=== PATIENT | female | born 1955 | race Caucasian/White ===

== ENCOUNTER 2016-03-31 14:21 | Inpatient (IN) | payer OTHER ==
[~2016-03-31] VITALS: Ht 162.6 cm; Wt 37.1 kg
[2016-03-31 14:46] VITALS: BP 132/110; PULSE 78; RESP 18; TEMP 99; O2SAT 97
[2016-03-31 14:59] VITALS: BP 132/110; PULSE 78; RESP 20; O2SAT 97
[2016-03-31 15:29] LABS: BACTERIA, URINE OCC /hpf; BLOOD, URINE LARGE (NEG); COMMENT (UR) CULTURE INDICATED; CULTURE IF INDICATED CULTURE INDICATED; GLUCOSE,URINE NEG (NEG); HYALINE CAST, URINE 5 /lpf (RARE); KETONE, URINE NEG (NEG); MUCUS URINE FEW /lpf (OCC); NITRITE,URINE NEG (NEG); PH, URINE 5.5 (5.0-8.5); SQUAMOUS EPITHELIAL CELL URINE 2 /hpf (0-5); URINE COLOR YELLOW (YELLW/STRAW)
[2016-03-31] MEDS ORDERED: LORazepam 1 MG TAB PO ONE (15:30)
--- NOTE | 2016-03-31 15:38 | PD ---
HPI Chief Complaint: Psychiatric Symptoms Time Seen by Provider: 14:50 Travel History International Travel<30 days: No Contact w/Intl Traveler<30days: No Traveled to known affect area: No History of Present Illness HPI Patient is a 60-year-old female with long-standing psychiatric history who presents the emergency department as a Wagner act. Apparently she has been increasingly psychotic and "unable to manage at home" per her . When EMS arrived patient was walking nude around her house. Stated "this is not my tongue", "but this is my arm". Patient is tangential, and not able to participate with history or physical. She denies any physical complaints. She refuses to ambulate for EMS, laying naked on the ground in the household. They had to physically transport her out of the house. She was stable throughout transport. Vital signs unremarkable. PFSH Past Medical History Arthritis: Yes Asthma: No Atrial Fibrillation: Yes Autoimmune Disease: No Anxiety: Yes Depression: Yes Heart Rhythm Problems: No High Cholesterol: Yes Chemotherapy: No Chest Pain: No Congestive Heart Failure: No COPD: No Cerebrovascular Accident: No Diminished Hearing: No Endocrine: Yes GERD: Yes Glaucoma: No Genitourinary: Yes Hepatitis: No Hiatal Hernia: No Hypertension: Yes Immune Disorder: No Implanted Vascular Access Dvce: Yes Kidney Stones: No Musculoskeletal: Yes Neurologic: No Reproductive: No Respiratory: No Migraines: No Myocardial Infarction: No Radiation Therapy: No Renal Failure: No Sickle Cell Disease: No Sleep Apnea: No Thyroid Disease: Yes Ulcer: No ?: Not Menopausal: Yes : 3 Para: 1 Ectopic : Yes Past Surgical History Abdominal Surgery: Yes (ECTOPIC , PEG TUBE INSERTION) AICD: No Appendectomy: No Arteriovenous Shunt: No Body Medical Devices: PINS AND SCREWS R HIP FROM SURGERY Cholecystectomy: No Gynecologic Surgery: Yes (ECTOPIC R SIDE) Insulin Pump: No Joint Replacement: No Pacemaker: No Tonsillectomy: Yes Other Surgery: Yes (R HIP WITH SCREWS AND PLATES IN 1992) Social History Alcohol Use: No Tobacco Use: No Substance Use: No Allergies-Medications (Allergen,Severity, Reaction): Coded Allergies: Penicillin (Verified Allergy, Severe, 06/25/15) *MDRO Multi-Drug Resistant Organism (Unverified Adverse Reaction, Unknown , 06/25/15) MRSA (abdominal wound) - 05/2014 and 06/2014. Reported Meds & Prescriptions Reported Meds & Active Scripts Active Active Prescriptions or Reported Medications Unobtainable Review of Systems ROS Limitations: Altered Mental Status, Psychotic, Poor Historian Physical Exam Exam Limitations: Altered Mental Status, Poor Historian, Psychotic Narrative GENERAL: Cachectic female, nude. SKIN: Warm and dry. HEAD: Atraumatic. Normocephalic. EYES: Pupils equal and round. No scleral icterus. No injection or drainage. ENT: No nasal bleeding or discharge. Mucous membranes pink and moist. NECK supple CARDIOVASCULAR: Regular rate and rhythm. No murmur appreciated. RESPIRATORY: No accessory muscle use. Clear to auscultation. Breath sounds equal bilaterally. GASTROINTESTINAL: Abdomen soft, non-tender, nondistended. MUSCULOSKELETAL: No obvious deformities. No edema. NEUROLOGICAL: Awake and alert [address] but not time. Grossly nonfocal neuro exam. Speech is normal. Moves all extremities strong. PSYCHIATRIC: Labile mood and affect. Tangential thought process. Unable to participate with history, physical. Data Data Last Documented VS Vital Signs Date Time Temp Pulse Resp B/P Pulse Ox O2 Delivery O2 Flow Rate FiO2 03/31/16 16:06 79 22 141/87 98 Room Air 03/31/16 14:46 99.0 Orders Complete Blood Count With Diff (03/31/16 14:51) Comprehensive Metabolic Panel (03/31/16 14:51) Drug Screen, Random Urine (03/31/16 14:51) Psych Screen (03/31/16 14:51) Urinalysis - C+S If Indicated (03/31/16 14:51) Cath For Specimen (03/31/16 14:51) Lorazepam (Ativan) (03/31/16 15:30) Urine Culture (03/31/16 15:00) Nitrofurantoin Monohyd Macrocr (Macrobid (03/31/16 15:45) Nitrofurantoin Monohyd Macrocr (Macrobid (03/31/16 18:00) Lorazepam Inj (Ativan Inj) (03/31/16 15:45) Ceftriaxone Inj (Rocephin Inj) (03/31/16 15:45) Restraints Non-Violent CHARLES.Q3H (03/31/16 15:59) Labs Laboratory Tests Test 03/31/16 03/31/16 15:00 16:30 Urine Color YELLOW Urine Turbidity CLOUDY Urine pH 5.5 Urine Specific [place] 1.027 Urine Protein 100 mg/dL Urine Glucose (UA) NEG mg/dL Urine Ketones NEG mg/dL Urine Occult Blood LARGE Urine Nitrite NEG Urine Bilirubin NEG Urine Urobilinogen LESS THAN 2.0 MG/DL Urine Leukocyte Esterase LARGE Urine RBC /hpf Urine WBC /hpf Urine WBC Clumps MANY Urine Squamous Epithelial 2 /hpf Cells Urine Bacteria OCC /hpf Urine Hyaline Casts 5 /lpf Urine Mucus FEW /lpf Urine Yeast (Budding) FEW Microscopic Urinalysis Comment CULTURE INDICATED Urine Opiates Screen NEG Urine Barbiturates Screen NEG Urine Amphetamines Screen NEG Urine Benzodiazepines Screen NEG Urine Cocaine Screen NEG Urine Cannabinoids Screen NEG White Blood Count 6.2 TH/MM3 Red Blood Count 3.63 MIL/MM3 Hemoglobin 10.8 GM/DL Hematocrit 31.6 % Mean Corpuscular Volume 87.0 FL Mean Corpuscular Hemoglobin 29.9 PG Mean Corpuscular Hemoglobin 34.3 % Concent Red Cell Distribution Width 14.2 % Platelet Count 273 TH/MM3 Mean Platelet Volume 8.8 FL Neutrophils (%) (Auto) 73.0 % Lymphocytes (%) (Auto) 15.4 % Monocytes (%) (Auto) 9.8 % Eosinophils (%) (Auto) 1.2 % Basophils (%) (Auto) 0.6 % Neutrophils # (Auto) 4.5 TH/MM3 Lymphocytes # (Auto) 1.0 TH/MM3 Monocytes # (Auto) 0.6 TH/MM3 Eosinophils # (Auto) 0.1 TH/MM3 Basophils # (Auto) 0.0 TH/MM3 CBC Comment DIFF FINAL Differential Comment Sodium Level 147 MEQ/L Potassium Level 3.3 MEQ/L Chloride Level 111 MEQ/L Carbon Dioxide Level 27.6 MEQ/L Anion Gap 8 MEQ/L Blood Urea Nitrogen 34 MG/DL Creatinine 0.72 MG/DL Estimat Glomerular Filtration 82 ML/MIN Rate Random Glucose 115 MG/DL Calcium Level 8.7 MG/DL Total Bilirubin 0.1 MG/DL Aspartate Amino Transf 16 U/L (AST/SGOT) Alanine Aminotransferase 21 U/L (ALT/SGPT) Alkaline Phosphatase 84 U/L Total Protein 6.9 GM/DL Albumin 3.0 GM/DL MDM Medical Decision Making Medical Screen Exam Complete: Yes Emergency Medical Condition: Yes Medical Record Reviewed: Yes Differential Diagnosis 60-year-old female here as a Wagner act for psychosis and abnormal behavior. Differential includes psychosis, schizophrenia, bipolar disorder, substance induced psychosis. Narrative Course Patient placed on monitor, IV established and blood obtained. She was ordered oral Ativan, his family states that this typically helps. Patient refused this stating that she cannot open her mouth, but clearly has no difficulty doing so on exam. Therefore IV Ativan was ordered instead. CBC, CMP, urinalysis and urine drug screen were notable for positive UTI. She was given dose of Rocephin , Macrobid order to follow. Patient medically cleared for psychiatric evaluation. Diagnosis Primary Impression: Urinary tract infection Qualified Code: N30.00 - Acute cystitis without hematuria Additional Impression: Psychosis Qualified Code: F29 - Psychosis, unspecified psychosis type Scripts Unable to Obtain Active Prescriptions or Reported Meds Teresa Kelly MD Mar 31, 2016 15:38
[2016-03-31 15:39] LABS: AMPHETAMINE, URINE NEG (NEG); BARBITURATES, URINE NEG (NEG); COCAINE, URINE NEG (NEG)
[2016-03-31] MEDS ORDERED: cefTRIAXone INJ 1,000 MG in SODIUM CHLORIDE 0.9% INJ 100 ML IV ONE (15:45)
[2016-03-31] MEDS ORDERED: LORazepam 2 MG/ML VIAL IV PUSH ONE (15:45)
[2016-03-31] MEDS ORDERED: NITROFURANTOIN MONOHYD MACROCR 100 MG CAP PO ONE (15:45)
[2016-03-31 16:06] VITALS: BP 141/87; PULSE 79; RESP 22; O2SAT 98
[2016-03-31 16:57] LABS: AUTOMATED NEUTROPHIL # 4.5 TH/MM3 (1.8-7.7); BASOPHIL % 0.6 % (0.0-2.0); EOSINOPHIL # 0.1 TH/MM3 (0-0.4); EOSINOPHIL % 1.2 % (0.0-4.0); HEMATOCRIT 31.6 % (35.0-46.0); HEMO FLAGS DIFF FINAL; LYMPH % 15.4 % (9.0-44.0); MEAN CORPUSCULAR HEMOGLOBIN 29.9 PG (27.0-34.0); MEAN CORPUSCULAR HGB CONC 34.3 % (32.0-36.0); MONO % 9.8 % (0.0-8.0); PLATELET COUNT 273 TH/MM3 (150-450); RED BLOOD COUNT 3.63 MIL/MM3 (4.00-5.30); RED CELL DISTRIBUTION WIDTH 14.2 % (11.6-17.2); WHITE BLOOD COUNT 6.2 TH/MM3 (4.0-11.0)
[2016-03-31 17:10] LABS: ALT (GPT) 21 U/L (10-53); ANION GAP 8 MEQ/L (5-15); AST (GOT) 16 U/L (15-37); BICARBONATE 27.6 MEQ/L (21.0-32.0); BLOOD UREA NITROGEN 34 MG/DL (7-18); CHLORIDE 111 MEQ/L (98-107); GLOMERULAR FILTRATION RATE 82 ML/MIN (>89); POTASSIUM 3.3 MEQ/L (3.5-5.1); SODIUM (NA) 147 MEQ/L (136-145)
[2016-03-31 17:13] LABS: ALKALINE PHOSPHATASE 84 U/L (45-117); TOTAL BILIRUBIN ADULT 0.1 MG/DL (0.2-1.0)
[2016-03-31] MEDS: NITROFURANTOIN MONOHYD MACROCR 100 MG CAP PO SCH (18:00)
[2016-03-31 19:12] VITALS: BP 132/66; PULSE 53; RESP 16; O2SAT 98
[2016-03-31 23:15] VITALS: BP 100/63; PULSE 82; RESP 16; TEMP 98.4; O2SAT 96
[2016-03-31] MEDS ORDERED: LORazepam 0.5 MG TAB age > 65 yrs PO PRN (23:15)
[2016-03-31] MEDS ORDERED: ALUMINUM/MAGNESIUM/SIMETH 30 ML CUP PO PRN (23:15)
[2016-03-31] MEDS ORDERED: MAGNESIUM HYDROXIDE SUSP 30 ML CUP PO PRN (23:15)
[2016-03-31] MEDS ORDERED: ACETAMINOPHEN 325 MG TAB PO PRN (23:15)
[2016-03-31 23:32] VITALS: BP 100/63; PULSE 82; RESP 12; TEMP 98.4; O2SAT 96
[2016-04-01 06:00] VITALS: BP 117/63; PULSE 78; RESP 18; TEMP 97.4; O2SAT 98
[2016-04-01] MEDS: LORazepam 2 MG/ML VIAL - age > 65 yrs IM PRN ×2 (06:19→21:54)
[2016-04-01] MEDS: NITROFURANTOIN MONOHYD MACROCR 100 MG CAP PO SCH (09:00)
[2016-04-01] MEDS: OLANZapine ODT 5 MG TAB PO SCH ×2 (11:00→21:00)
[2016-04-01] MEDS ORDERED: MAGNESIUM HYDROXIDE SUSP 30 ML CUP PO PRN (11:00)
[2016-04-01] MEDS ORDERED: ALUMINUM/MAGNESIUM/SIMETH 30 ML CUP PO PRN (11:00)
[2016-04-01] MEDS ORDERED: ACETAMINOPHEN 325 MG TAB PO PRN (11:00)
--- NOTE | 2016-04-01 11:23 | HHI.HP ---
Provisional Diagnosis Admission Date Mar 31, 2016 at 22:55 [place] I. Delusional disorder somatic type with bizarre content f 22 Certification of Person's Competence To Provide Express and Informed Consent I have personally examined Jelly Mansfield , a person being served at [facility] on, Apr 01, 2016 10:58. Express and informed consent means consent voluntarily given in writing, by a competent person, after sufficient explanation and disclosure of the subject matter involved to enable the person to make a knowing and willful decision without any element of force, fraud, deceit, duress, or other form of constraint or coercion. This person is 18 years of age or older, is not now known to be incompetent to consent to treatment with a guardian advocate, and does not have a health care surrogate or proxy currently making medical treatment decisions. I have found this person to be one of the following: [] Competent to provide express and informed consent, as defined above, for voluntary admission to this facility and is competent to provide express and informed consent for treatment. He/she has the consistent capacity to make well reasoned, willful, and knowing decisions concerning his or her medical or mental health treatment. The person fully and consistently understands the purpose of the admission for examination/placement and is fully capable of personally exercising all rights assured [place] [x] Incompetent to provide express and informed consent to voluntary admission, and this is incompetent to provide express and informed consent to treatment. The person must be transferred to involuntary status and a petition for a guardian advocate filed with the Circuit Court. [] Refusing to provide express and informed consent to voluntary admission but is competent to provide express and informed consent for treatment. The person must be discharged or transferred to involuntary status. Form shall be completed within 24 hours of a person's arrival at the receiving facility and filed in the clinical record of each person: 1. Admitted on a voluntary basis 2. Permitted to provide express and informed consent to his/her own treatment 3. Allowed to transfer from involuntary to voluntary status 4. Prior to permitting a person to consent to his or her own treatment after having been previously found incompetent to consent to treatment. History of Present Illness Capacity: Lacks Capacity HPI Patient is a 60-year-old white female well known to us from multiple prior contact comes here under Wagner act by the [facility] office dated 03/31/16 12:55 PM stating on 03/31/16 Deputy Valdez make contact with Jelly mansfield at her residence. Rebecca notified the [employer] office reference to shyla behavior becoming delusional and psychotic. Shyla has a history of diagnosed mental illness and erratic behavior. She further is unable and unwilling to take care of herself mentally and physically Regino made several attempts to assist her with cleaning herself, however she refuses to allow the assistance. shyla defecated on herself and refuses to remove herself from bed and refuses to visit any medical doctors for evaluation. Due to the aforementioned information [place] José Miguel placed Regino into protective custody under the Wagner act statue. Is also noted that patient was unclothed during these episodes and had to be physically assisted out of her home. Her patient seen screened in the ED urine toxicology negative. At the present time patient sitting in Erica chair in the day room nurse Bety present throughout session. Patient continues to voice delusional ideation saying that parts of her body are not her own including her throat her arms her knees or legs. That she cannot swallow. She is oriented she knows she isn't [facility] this mental health unit, she knew yesterday was [place] '. She does acknowledge noncompliance medication because she cannot swallow. She does denies suicidality denies voices. Patient is had multiple mental health visits here most recent being an ED at the time she was discharged and return home. She is also here through 07/04/15 . It appears these behaviors have been getting worse over the past few weeks. These behaviors appear somewhat with a body dysmorphic flavor At the present time patient meets criteria for involuntary psychiatric hospitalization under the Wagner act. I will do first opinion requests second opinion. I feel she does not have capacity to make appropriate tissues considering her care thus I'll ask for healthcare surrogate and a guardian advocate. We did review her medications we will offer her Zyprexa Zydis 5 mg by mouth twice a day and if she refuses offer her Zyprexa 5 mg IM in its place, all with permission of health care surrogate/guardian advocate. Also have the hospitalist consult was will also have dietary consult was we will have OT also assess. Review of Systems ROS Limitations: Clinical Condition, Altered Mental Status, Psychotic ( delusional) Except as stated in HPI: all other systems reviewed are Neg Past Psych History Psychological trauma history Long history mental health issues various medical issues Violence risk - others (6 mos) Low Violence risk - self (6 mos) Self-harm by neglect Substance Abuse History Drugs/Alcohol past 12 months Denies Past Family Social History Coded Allergies: Penicillin (Verified Allergy, Severe, 06/25/15) *MDRO Multi-Drug Resistant Organism (Verified Adverse Reaction, Unknown, ) MRSA (abdominal wound) - 05/2014 and 06/2014. Past Medical History Multiple complex please see MedSurg assessment Unable to Obtain Active Prescriptions or Reported Meds Current Medications Medications (Trade) Dose Ordered Sig/Bartolo Route Start Time Stop Time Status Last Admin (Macrobid) 100 mg BIDPC PO 03/31/16 18:00 (Ativan) 0.5 mg Q12H PRN PO 03/31/16 23:15 (Ativan Inj) 0.5 mg Q12H PRN IM 03/31/16 23:15 04/01/16 06:19 (Tylenol) 650 mg Q4H PRN PO 03/31/16 23:15 (Milk Of Magnesia Liq) 30 ml DAILY PRN PO 03/31/16 23:15 (Mag-Al Plus Susp Liq) 30 ml Q6H PRN PO 03/31/16 23:15 Family History Unknown if there is mental health history and family at this time Social History Patient was with who is quite supportive Patient's Strengths (min. 2) Patient verbal intellectual [facility] has supportive Physical Exam Patient seen screen in ED exam reviewed and agreed with vital signs blood pressure 117/63 pulse 78 respirations 18 Vital Signs Vital Signs Date Time Temp Pulse Resp B/P Pulse Ox O2 Delivery O2 Flow Rate FiO2 04/01/16 06:00 97.4 78 18 117/63 98 03/31/16 19:12 Room Air Mental Status Examination Alert diffusely confused though oriented to person place time in date, disheveled in appearance with intense eye contact Appearance Disheveled Speech: Pressured, Rapid, Circumstantial, Tangential Orientation: Person, Place, Date Memory: Impaired (describe) Thought Process: Linear Thought Content: Bizarre thinking, Paranoid Hallucination Type: None Attention and Concentration: Other (poor) Suicidal Ideation: No (denies) Previous Suicide Attempts: No Homicidal Ideation: No (denies) Insight: Poor Judgement: Poor Affect: Other (decreased range of motion intensity) Mood: Anxious, Irritable Motor Activity: Normal gait (patient in Erica chair will have PT assessment) Assessment & Plan Problem List: (1) Delusional disorder, somatic type, with bizarre content ICD Code: F22 Assessment & Plan Estimated LOS: 3-5 days patient quite delusional with body dysmorphic type features. Noncompliance medication. Eating and drinking due to her feeling she does not have a throat. List of medications as above with permission of . Patient meeting Wagner criteria for involuntary hospitalization and needing health care surrogate and guardian advocate Discharge Planning To be determined Request HC Surrog/Guard Advoc?: Yes Dominik Kirkland MD Apr 01, 2016 11:23
[2016-04-01] MEDS: OLANZapine IM 10 MG VIAL IM PRN ×2 (12:14→21:54)
--- NOTE | 2016-04-01 13:03 | PD.CONS ---
[facility] Reason for Consult Medical management with multiple medical issues Primary Care Physician Unknown Diagnoses: History of Present Illness This is a 60-year-old female with PMH of HTN, HLD, arthritis, hypothyroidism, psychosis was brought to the Hospital as a Wagner act. The patient was admitted to the inpatient unit, we have been consulted for medical medical management with multiple medical issues. History from prior records as patient is a poor historian. Patient answers questions with only mumbles. Patient does appear extremely thin. Patient has a h/o dysphagia and had a PEG tube placed in the past. Per review of old records GI felt that odontophobia is psychological. Her current BMI is 14. Review of Systems Other all other systems reviewed and negative except as mentioned in HPI Past Family Social History Allergies: Coded Allergies: Penicillin (Verified Allergy, Severe, 06/25/15) *MDRO Multi-Drug Resistant Organism (Verified Adverse Reaction, Unknown, ) MRSA (abdominal wound) - 05/2014 and 06/2014. Past Medical History h/o dysphagia with previous PEG tube, HTN, ? hypothyroidism, psychosis, arthritis, h/o pelvic fracture with repair, h/o right hip fracture with repair, h/o Past Surgical History right hip surgery PEG tube pelvic fracture with surgery Reported Medications Active Prescriptions or Reported Medications Unobtainable Family History Mother with heart problems Social History No report of tobacco use, EtOH or illicit drug use. Physical Exam Vital Signs Vital Signs Date Time Temp Pulse Resp B/P Pulse Ox O2 Delivery O2 Flow Rate FiO2 04/01/16 06:00 97.4 78 18 117/63 98 03/31/16 23:32 98.4 82 12 100/63 96 03/31/16 23:15 98.4 82 16 100/63 96 03/31/16 19:12 53 16 132/66 98 Room Air 03/31/16 16:06 79 22 141/87 98 Room Air 03/31/16 14:59 78 20 132/110 97 Room Air 03/31/16 14:46 99.0 78 18 132/110 97 Physical Exam GENERAL: This is an extremely thin frail 60 year old patient who appears older than stated age. SKIN: healing abrasion BLE HEAD: Atraumatic. Normocephalic. No temporal or scalp tenderness. CARDIOVASCULAR: Regular rate and rhythm without murmurs, gallops, or rubs. RESPIRATORY: Clear to auscultation. Breath sounds equal bilaterally. No wheezes , rales, or rhonchi. GASTROINTESTINAL: Abdomen soft, non-tender, nondistended. No hepato-splenomegaly , or palpable masses. No guarding. MUSCULOSKELETAL: Extremities without clubbing, cyanosis, or edema. No joint tenderness, effusion, or edema noted. No calf tenderness. Negative Homans sign bilaterally. NEUROLOGICAL: Appears sedated able to arouse to verbal stimuli. 3-4 out of 5 muscle strength in all muscle groups. muffled speech. Laboratory Laboratory Tests Test 03/31/16 03/31/16 15:00 16:30 Urine Color YELLOW Urine Turbidity CLOUDY Urine pH 5.5 Urine Specific [place] 1.027 Urine Protein 100 Urine Glucose (UA) NEG Urine Ketones NEG Urine Occult Blood LARGE Urine Nitrite NEG Urine Bilirubin NEG Urine Urobilinogen LESS THAN 2.0 Urine Leukocyte Esterase LARGE Urine RBC Urine WBC Urine WBC Clumps MANY Urine Squamous Epithelial 2 Cells Urine Bacteria OCC Urine Hyaline Casts 5 Urine Mucus FEW Urine Yeast (Budding) FEW Microscopic Urinalysis Comment CULTURE INDICATED Urine Opiates Screen NEG Urine Barbiturates Screen NEG Urine Amphetamines Screen NEG Urine Benzodiazepines Screen NEG Urine Cocaine Screen NEG Urine Cannabinoids Screen NEG White Blood Count 6.2 Red Blood Count 3.63 Hemoglobin 10.8 Hematocrit 31.6 Mean Corpuscular Volume 87.0 Mean Corpuscular Hemoglobin 29.9 Mean Corpuscular Hemoglobin 34.3 Concent Red Cell Distribution Width 14.2 Platelet Count 273 Mean Platelet Volume 8.8 Neutrophils (%) (Auto) 73.0 Lymphocytes (%) (Auto) 15.4 Monocytes (%) (Auto) 9.8 Eosinophils (%) (Auto) 1.2 Basophils (%) (Auto) 0.6 Neutrophils # (Auto) 4.5 Lymphocytes # (Auto) 1.0 Monocytes # (Auto) 0.6 Eosinophils # (Auto) 0.1 Basophils # (Auto) 0.0 CBC Comment DIFF FINAL Differential Comment Sodium Level 147 Potassium Level 3.3 Chloride Level 111 Carbon Dioxide Level 27.6 Anion Gap 8 Blood Urea Nitrogen 34 Creatinine 0.72 Estimat Glomerular Filtration 82 Rate Random Glucose 115 Calcium Level 8.7 Total Bilirubin 0.1 Aspartate Amino Transf 16 (AST/SGOT) Alanine Aminotransferase 21 (ALT/SGPT) Alkaline Phosphatase 84 Total Protein 6.9 Albumin 3.0 Date/Time Procedure Status Source Growth 03/31/16 15:00 Urine Culture Worksheet Urine Clean Catch Pending Result Diagram: 03/31/16 1630 03/31/16 1630 Assessment and Plan Assessment and Plan This is a 60-year-old female with PMH of HTN, HLD, arthritis, hypothyroidism, psychosis was brought to the Hospital as a Wagner act. The patient was admitted to the inpatient unit, we have been consulted for medical medical management with multiple medical issues. History from prior records as patient is unreliable. Patient has a h/o dysphagia and had a PEG tube placed in the past. Per review of old records GI felt that odontophobia is psychological. Her current BMI is 14. Psychosis- acute management per psychiatry Odynophagia- Chronic Protein calorie malnutrition with a BMI of 14 Patient has had a PEG tube in the past. Per GI old note 2014 patient odynophagia is psychiatric in nature. 07/13 EGD with finding small Hiatal hernia. speech therapy consulted for swallow evaluation Dietary also consulted for assistance add ensure to trays UTI- Urine culture pending Patient received Rocephin 1 gram in ER prescribed Nitrofurantoin PO- patient has refused to take as she states she can not swallow will DC nitrofurantoin and give Rocephin 1 gram IV x 3 days awaiting culture results HTN (hypertension)- chronic Patient was hypertensive upon arrive to the hospital, but has now improved. likely related to anxiety. Continue to monitor VS Hypokalemia- potassium 3.3 replace with 25 meq potassium x 1 Hypothyroidism- chronic Report of taking levothyroxine ? will check TSH Patient is not reliable on history unable to determine if she is taking any meds- Have asked RN to verify with pharmacy DVT prophylaxis- patient is ambulatory Discussed with patient and RN Written by Radha Robbins, acting as scribe for Dr. Zelaya on 04/01/16 at 14:49. The documentation accurately reflects the work performed [id number] by me on at 14:49. Radha Robbins Apr 01, 2016 13:03 Janessa Zelaya MD Apr 02, 2016 17:07
[2016-04-01] MEDS ORDERED: POTASSIUM CHLORIDE 25 MEQ EFFERVESCENT TAB PO ONE (13:30)
--- NOTE | 2016-04-01 15:56 | PD.CONS ---
Provisional Diagnosis Admission Date Mar 31, 2016 at 22:55 [place] I. 1. Delusional Disorder, somatic type Rule out component of delirium due to UTI [place] II. Deferred [place] V. GAF is 30 presently History of Present Illness Service Psychiatry Consult Requested By Dr. Kirkland Reason for Consult Second opinion Primary Care Physician Unknown HPI From Dr. Kirkland's H&P: Patient is a 60-year-old white female well known to us from multiple prior contact comes here under Wagner act by the [facility] office dated 03/31/16 12:55 PM stating on 03/31/16 Deputy Valdez make contact with Jelly maloney at her residence. Rebecca notified the [employer]'s office reference to shyla behavior becoming delusional and psychotic. Shyla has a history of diagnosed mental illness and erratic behavior. She further is unable and unwilling to take care of herself mentally and physically Regino made several attempts to assist her with cleaning herself, however she refuses to allow the assistance. shyla defecated on herself and refuses to remove herself from bed and refuses to visit any medical doctors for evaluation. Due to the aforementioned information Deputy Valdez placed Regino into protective custody under the Wagner act statue. Is also noted that patient was unclothed during these episodes and had to be physically assisted out of her home. Her patient seen screened in the ED urine toxicology negative. At the present time patient sitting in Erica chair in the day room nurse Bety present throughout session. Patient continues to voice delusional ideation saying that parts of her body are not her own including her throat her arms her knees or legs. That she cannot swallow. She is oriented she knows she isn't [facility] this mental health unit, she knew yesterday was New Year's. She does acknowledge noncompliance medication because she cannot swallow. She does denies suicidality denies voices. Patient is had multiple mental health visits here most recent being an ED at the time she was discharged and return home. She is also here through 07/04/15 . It appears these behaviors have been getting worse over the past few weeks. These behaviors appear somewhat with a body dysmorphic flavor At the present time patient meets criteria for involuntary psychiatric hospitalization under the Wagner act. I will do first opinion requests second opinion. I feel she does not have capacity to make appropriate tissues considering her care thus I'll ask for healthcare surrogate and a guardian advocate. We did review her medications we will offer her Zyprexa Zydis 5 mg by mouth twice a day and if she refuses offer her Zyprexa 5 mg IM in its place, all with permission of health care surrogate/guardian advocate. Also have the hospitalist consult was will also have dietary consult was we will have OT also assess. On my examination today: Patient seen and examined. Chart reviewed. Patient has a history of multiple prior psychiatric hospitalizations within our system, most recently in the Spring of this year. Case discussed with nursing staff, who reports that earlier today, patient was perseverating on parts of her body being foreign. She was medicated with Zyprexa and has since been resting. On my examination today, patient awakens readily. She says "this wasn't supposed to happen. I was supposed to be at home. How come I'm sitting here?" She perseverates on going home. I am able to redirect her only briefly for her to deny AVH or SI/ HI. She does not verbalize any of the beliefs about parts of her body being foreign. Unable to obtain much in the way of past psychiatric, family, chemical dependency or social history from this patient given her present mental status. Review of Systems ROS Limitations: Poor Historian Other No reported somatic complaints. Past Family Social History Coded Allergies: Penicillin (Verified Allergy, Severe, 06/25/15) *MDRO Multi-Drug Resistant Organism (Verified Adverse Reaction, Unknown, ) MRSA (abdominal wound) - 05/2014 and 06/2014. Past Medical History See electronic medical record Unable to Obtain Active Prescriptions or Reported Meds Current Medications Medications (Trade) Dose Ordered Sig/Bartolo Route Start Time Stop Time Status Last Admin (Ativan) 0.5 mg Q12H PRN PO 03/31/16 23:15 (Ativan Inj) 0.5 mg Q12H PRN IM 03/31/16 23:15 04/01/16 06:19 (Tylenol) 650 mg Q4H PRN PO 03/31/16 23:15 (Milk Of Magnesia Liq) 30 ml DAILY PRN PO 03/31/16 23:15 (Mag-Al Plus Susp Liq) 30 ml Q6H PRN PO 03/31/16 23:15 (ZyPREXA ZYDIS ODT) 5 mg Q12HR PO 04/01/16 11:00 (ZyPREXA INJ) 5 mg Q12H PRN IM 04/01/16 11:00 04/01/16 12:14 (Rocephin Inj) 1,000 mg DAILY IM 04/01/16 16:00 04/03/16 15:59 Family History See above Social History See above Patient's Strengths (min. 2) In a monitored setting. Verbally fluent. Physical Exam Physical examination completed in the ED. On my examination today, I find a somewhat disheveled, emaciated woman in no acute physical distress. No abnormal motor movements noted. Labs and vital signs reviewed. Vital Signs Vital Signs Date Time Temp Pulse Resp B/P Pulse Ox O2 Delivery O2 Flow Rate FiO2 04/01/16 06:00 97.4 78 18 117/63 98 03/31/16 19:12 Room Air Lab Results Item Value Date Time White Blood Count 6.2 TH/MM3 03/31/16 1630 Hemoglobin 10.8 GM/DL L 03/31/16 1630 Platelet Count 273 TH/MM3 03/31/16 1630 Sodium Level 147 MEQ/L H 03/31/16 1630 Potassium Level 3.3 MEQ/L L 03/31/16 1630 Chloride Level 111 MEQ/L H 03/31/16 1630 Carbon Dioxide Level 27.6 MEQ/L 03/31/16 1630 Blood Urea Nitrogen 34 MG/DL H 03/31/16 1630 Creatinine 0.72 MG/DL 03/31/16 1630 Aspartate Amino Transf (AST/SGOT) 16 U/L 03/31/16 1630 Alanine Aminotransferase (ALT/SGPT) 21 U/L 03/31/16 1630 Alkaline Phosphatase 84 U/L 03/31/16 1630 Urine toxicology negative. Urinalysis concerning for UTI and culture is growing out gram-negative rods. Mental Status Examination Patient is in hospital gown. She is somewhat disheveled and thin and ill appearing. She is easily awakened and oriented to person, [facility], March. No abnormal motor movements noted. Speech is somewhat rambling and perseverative. Mood and affect seem dysphoric. Thought process somewhat disorganized. Denies AVH. No delusions at this time. Denies SI or HI. Insight and judgment seem poor. Assessment & Plan Problem List: (1) Delusional disorder, somatic type, with bizarre content Assessment & Plan: Rule out component of delirium from UTI ICD Code: F22 Assessment & Plan Given the circumstances of patient's initial presentation, her history, and her presentation on my examination today, I concur with Dr. Kirkland that the patient meets criteria for involuntary psychiatric hospitalization under the Wagner act. I have completed the second opinion paperwork. Further care as per Dr. Kirkland. Thank you very much for this consultation. Signing off. Discharge Planning Per Dr. Kirkland Request Surrog/Guard Advoc?: Yes Art Baron MD Apr 01, 2016 15:56
[2016-04-01 19:32] VITALS: BP 129/69; PULSE 63; RESP 18; TEMP 96.8
[2016-04-02 06:00] VITALS: BP 139/65; PULSE 64; RESP 16; TEMP 97.9; O2SAT 100
[2016-04-02] MEDS: OLANZapine ODT 5 MG TAB PO SCH (09:17)
[2016-04-02] MEDS ORDERED: OLANZ5 PO (09:23)
[2016-04-02] MEDS ORDERED: NITR50CA27 PO (09:29)
--- NOTE | 2016-04-02 09:39 | HHI.DS ---
Psychiatry Discharge Summary Inpatient Psychiatric care?: Yes Advance Directive: No Reason Not Provided: UNABLE TO ASSESS Mental Health AdvanceDirective: No Health Care Proxy: No Admission Admission Date Mar 31, 2016 at 22:55 Admission Diagnosis: (1) Delusional disorder, somatic type, with bizarre content ICD Code: F22 Brief History From Dr. Kirkland's H&P: Patient is a 60-year-old white female well known to us from multiple prior contact comes here under Wagner act by the [facility] office dated 03/31/16 12:55 PM stating on 03/31/16 Deputy Valdez make contact with Jelly maloney at her residence. Rebecca notified the [employer]'s office reference to shyla behavior becoming delusional and psychotic. Shyla has a history of diagnosed mental illness and erratic behavior. She further is unable and unwilling to take care of herself mentally and physically Regino made several attempts to assist her with cleaning herself, however she refuses to allow the assistance. shyla defecated on herself and refuses to remove herself from bed and refuses to visit any medical doctors for evaluation. Due to the aforementioned information Deputy Valdez placed Regino into protective custody under the Wagner act statue. Is also noted that patient was unclothed during these episodes and had to be physically assisted out of her home. Her patient seen screened in the ED urine toxicology negative. At the present time patient sitting in Erica chair in the day room nurse Bety present throughout session. Patient continues to voice delusional ideation saying that parts of her body are not her own including her throat her arms her knees or legs. That she cannot swallow. She is oriented she knows she isn't [facility] this mental health unit, she knew yesterday was New Year's. She does acknowledge noncompliance medication because she cannot swallow. She does denies suicidality denies voices. Patient is had multiple mental health visits here most recent being an ED at the time she was discharged and return home. She is also here through 07/04/15 . It appears these behaviors have been getting worse over the past few weeks. These behaviors appear somewhat with a body dysmorphic flavor At the present time patient meets criteria for involuntary psychiatric hospitalization under the Wagner act. I will do first opinion requests second opinion. I feel she does not have capacity to make appropriate tissues considering her care thus I'll ask for healthcare surrogate and a guardian advocate. We did review her medications we will offer her Zyprexa Zydis 5 mg by mouth twice a day and if she refuses offer her Zyprexa 5 mg IM in its place, all with permission of health care surrogate/guardian advocate. Also have the hospitalist consult was will also have dietary consult was we will have OT also assess. On my examination today: Patient seen and examined. Chart reviewed. Patient has a history of multiple prior psychiatric hospitalizations within our system, most recently in the Spring of this year. Case discussed with nursing staff, who reports that earlier today, patient was perseverating on parts of her body being foreign. She was medicated with Zyprexa and has since been resting. On my examination today, patient awakens readily. She says "this wasn't supposed to happen. I was supposed to be at home. How come I'm sitting here?" She perseverates on going home. I am able to redirect her only briefly for her to deny AVH or SI/ HI. She does not verbalize any of the beliefs about parts of her body being foreign. Unable to obtain much in the way of past psychiatric, family, chemical dependency or social history from this patient given her present mental status. Tobacco Use In Past 30 Days: 5 or More Cigarettes/Day Alcohol Use: Never Hospital Course Patient's initial course was uneventful she continued with her somatizations related to her swallowing she did show some appetite tolerating small amounts of solid foods and liquids. She is selectively compliant with medications. She does have VNA tract infection. Will order Macrobid 50 mg 4 times a day 5 days for that to continue the treatment outpatient. We'll also continue her Zyprexa. There is been communication by the counselors the patient's . He is demanding that his be discharged to him today. He wishes her to be home with them she wishes to be home with them. She denies suicidality homicidality or voices or visions at this time though this still remains a somatizations with the delusional content. However at this time with the support of and the willingness of to take full responsibility for his 's care medication and follow-up, will discharge the patient today to her would recommend follow-up with PCP perhaps mental health professional if he so desires Results Blood Pressure 139 / 65 Vital Signs Date Time Temp Pulse Resp B/P Pulse Ox O2 Delivery O2 Flow Rate FiO2 04/02/16 06:00 97.9 64 16 139/65 100 03/31/16 19:12 Room Air Laboratory Tests Test 03/31/16 03/31/16 15:00 16:30 Urine Turbidity CLOUDY (CLEAR) Urine Protein 100 mg/dL (NEG-TRACE) Urine Occult Blood LARGE (NEG) Urine Leukocyte Esterase LARGE (NEG) Urine WBC Clumps MANY (NONE) Urine Bacteria OCC /hpf (NONE) Urine Mucus FEW /lpf (OCC) Urine Yeast (Budding) FEW (NONE) Sodium Level 147 MEQ/L (136-145) Potassium Level 3.3 MEQ/L (3.5-5.1) Chloride Level 111 MEQ/L (98-107) Blood Urea Nitrogen 34 MG/DL (7-18) Estimat Glomerular Filtration 82 ML/MIN (>89) Rate Random Glucose 115 MG/DL (74-106) Total Bilirubin 0.1 MG/DL (0.2-1.0) Albumin 3.0 GM/DL (3.4-5.0) Red Blood Count 3.63 MIL/MM3 (4.00-5.30) Hemoglobin 10.8 GM/DL (11.6-15.3) Hematocrit 31.6 % (35.0-46.0) Neutrophils (%) (Auto) 73.0 % (16.0-70.0) Monocytes (%) (Auto) 9.8 % (0.0-8.0) Summary of Procedures None done Pending results at discharge: No Medications # of Antipsychotic meds at D/C: 1 Approp Antipsych med options 1 - Minimum of three failed multiple trials of monotherapy. 2 - Documented plan to taper to monotherapy due to previous use of multiple meds OR cross-taper in progress at D/C. 3 - Documentation of augmentation of Clozapine. 4 - Justification other than those listed in allowable values 1-3, document here : Discharge Discharge Date: Apr 02, 2016 Discharge Diagnosis: (1) Delusional disorder, somatic type, with bizarre content Diagnosis: Principal ICD Code: F22 Mental Status Exam at Disch Will ask for a little oriented white female somewhat anxious sitting in her Erica chair active, mood is euthymic to somewhat irritable and anxious, affect for slight increase range intensity. She denies voices or visions, there continues the delusional component of her illness. Insight and judgment is poor cognition grossly intact Pt Condition on Discharge: Stable Discharge Disposition: Discharge Home Discharge Instructions Diet Instructions: As Tolerated, No Restrictions Activities you can perform: Regular-No Restrictions Scheduled Appointment: follow-up PCP Discharge Time > 30 minutes Discharge/Advance Care Plan Health Problems: (1) Delusional disorder, somatic type, with bizarre content Goals to promote your health * To prevent worsening of your condition and complications * To maintain your health at the optimal level Directions to meet your goals Take your medications as prescribed Follow your dietary instruction Follow activity as directed Keep your appointments as scheduled Take your immunizations and boosters as scheduled If your symptoms worsen call your PCP, if no PCP go to Urgent Care Center or Emergency Room For 21/10 questions related to your inpatient stay or results of tests pending at discharge, please contact Dr. Dominik Kirkland at Smoking is Dangerous to Your Health. Avoid second hand smoking Dominik Kirkland MD Apr 02, 2016 09:39
[2016-04-02] MEDS ORDERED: MACR100C2 PO (11:08)
[2016-04-02] MEDS ORDERED: NITROFURANTOIN MONOHYD MACROCR 100 MG CAP PO SCH (12:00)
== END 2016-04-02 14:15 | disposition home or self-care (01) | DRG 885 ==
LOC: NEPC 14:21 → NEDA 22:55 → H250 23:14
PROVIDERS: ADMIT Psychiatry & Neurology Psychiatry; ATTEND Psychiatry & Neurology Psychiatry
DX: F22 Delusional disorders (principal); E46 Unspecified protein-calorie malnutrition; N39.0 Urinary tract infection, site not specified; R13.10 Dysphagia, unspecified; Z68.1 Body mass index [BMI] 19.9 or less, adult; I10 Essential (primary) hypertension; Z91.19 Patient's noncompliance with other medical treatment and regimen; E87.6 Hypokalemia; M19.90 Unspecified osteoarthritis, unspecified site; E78.5 Hyperlipidemia, unspecified; E03.9 Hypothyroidism, unspecified; K44.9 Diaphragmatic hernia without obstruction or gangrene
CPT/HCPCS: 80053; 80307; 81001; 85025; 87077; 87086; 87186; 96365; 96375; J0696; J2060; P9612

== ENCOUNTER 2018-02-11 03:22 | Inpatient (IN) ==
--- NOTE | 2018-02-11 03:53 | ED ---
HPI General Chief Complaint: Psychiatric Symptoms Stated Complaint: Psy Time Seen by Provider: 02/11/18 03:46 Source: patient, EMS and RN notes reviewed Mode of arrival: EMS Limitations: altered mental status History of Present Illness HPI Narrative: 62-year-old female patient with history of previous psychosis presents to the ER today sent in by [facility] as a transfer because patient apparently has psychosis again and has been Wagner acted, and is medically cleared, sent here for psych evaluation. Related Data Home Medications Medication Instructions Recorded Confirmed No Known Home Medications 02/11/18 02/11/18 Allergies Allergy/AdvReac Type Severity Reaction Status Date / Time penicillin G Allergy Severe Anaphylaxis Verified 02/11/18 04:03 Review of Systems ROS Unobtainable ROS Unobtainable: unobtainable due to mental status PMFSH History History Provided By: Patient Medical History Medical History Anxiety (Acute) History of Clostridium difficile infection (Acute) History of gastroesophageal reflux (GERD) (Acute) History of psychosis (Acute) History of schizophrenia (Acute) Hx of gallstones (Acute) Hypertension (Acute) Surgical History Surgical History History of orthopedic surgery (Acute) Hx of tonsillectomy (Acute) Social History Social History Substance History: Unable to Obtain Smoking Status: Unknown if ever smoked How Often Do You Have a Drink Containing Alcohol: Unable to Obtain Recent Travel in [facility] within the Last 8 Weeks: No Recent Out of Country Travel within the Last 8 Weeks: No Exam Narrative Exam Narrative: GENERAL: Well-nourished, well-developed patient currently in no acute distress. SKIN: Focused skin assessment warm/dry. HEAD: Normocephalic. EYES: No scleral icterus. No injection or drainage. NECK: Supple, trachea midline. No JVD or lymphadenopathy. CARDIOVASCULAR: Regular rate and rhythm without murmurs, gallops, or rubs. RESPIRATORY: Breath sounds equal bilaterally. No accessory muscle use. GASTROINTESTINAL: Abdomen soft, non-tender, nondistended. MUSCULOSKELETAL: No cyanosis, or edema. BACK: Nontender without obvious deformity. No CVA tenderness. NEUROLOGICAL: Awake and alert. Cranial nerves II through XII intact. Motor and sensory grossly within normal limits. Five out of 5 muscle strength in all muscle groups. Normal speech. PSYCHIATRIC: Appears mildly anxious. Currently responding to internal stimuli. Flat affect. Course Initial Documented Vital Signs Temperature 98.2 F 02/11/18 03:44 Pulse Rate 55 L 02/11/18 03:44 Respiratory Rate 16 02/11/18 03:44 Blood Pressure 89/50 L 02/11/18 03:44 Pulse Oximetry 99 02/11/18 03:44 Last Documented Vital Signs Temperature 98.2 F 02/11/18 03:44 Pulse Rate 56 L 02/11/18 04:03 Respiratory Rate 18 02/11/18 04:03 Blood Pressure 90/51 L 02/11/18 04:03 Pulse Oximetry 96 02/11/18 04:03 Medical Decision Making MDM Narrative Medical decision making narrative: Medically cleared, awaiting psychiatric evaluation in the ER. Medical Screen Exam Complete: Yes Emergency Medical Condition: Yes Discharge Plan Discharge Disposition Patient Disposition: 30 Still Patient Discharge Condition Condition: Stable Discharge Details Diagnosis: Psychoses Physicians Team ED Provider: Turner Mcdaniel Primary Care Provider: Primary Care Kalie Gomez Rxs /Orders / Referrals /Forms Prescriptions: No Action No Known Home Medications RF: 0 Status ED Status: Medically Cleared
--- NOTE | 2018-02-11 14:53 | P.CONPSY ---
Provisional Diagnosis Admission Date: February 11, 2018 13:40 [place] I.: Psychosis not otherwise specified History of Present Illness Primary Care Provider: No Primary Care Physician History of Present Illness: This is a 62-year-old , female who presents under Wagner act to this facility for acting psychotic. She is known to this facility and the psychiatric department with her last admission being in March 2016 for a similar episode. Reviewed electronic medical record discussed case with staff. Patient was a transfer from [facility]. Staff advised that patient had to be placed in medical restraints due to her trying to abscond from the area as well as becoming physically aggressive with staff. Her nurse reports that she was yelling "poltergeist". She was given ETO medications by the emergency room provider. When I see her for evaluation she remains 1 soft wrist restraint. She is dirty and disheveled and looks much older than her stated age. The patient lacks capacity to respond to me in any meaningful manner and continues to repeat "I am not Jelly". Her nurse reports that the patient's called stating that she could not be admitted to the inpatient psychiatric unit due to "they almost killed her last time". There is no indication that the is power of coil spring assembler for the patient, she remains under a Wagner act which cannot be lifted at this time, therefore I have no option but to admit her. He expressed concern that she may have pneumonia however, her white blood cells are within normal limits and she has been afebrile. Additionally, there is no indication of UTI. Review of Systems All other systems reviewed negative except as stated in HPI [facility] - History History Provided By: Patient - Medical History Medical History: Medical History (Last Reviewed 02/11/18 @ 14:42 by LI Clemente) Anxiety History of Clostridium difficile infection History of gastroesophageal reflux (GERD) History of psychosis History of schizophrenia Hx of gallstones Hypertension - Surgical History Surgical History: Surgical History (Last Reviewed 02/11/18 @ 14:42 by LI Clemente) History of orthopedic surgery Hx of tonsillectomy - Tobacco History Smoking Status: Unknown if ever smoked - Alcohol History How Often Do You Have a Drink Containing Alcohol: Unable to Obtain - Substance Use History Substance History: Unable to Obtain - Travel History Recent Travel in the [place] Within the Last 8 Weeks: No Recent Travel Out of the Country Within the Last 8 Weeks: No - Immunization History Tetanus Immunization: Unable to Assess Medications and Allergies Active Medications: Active Medications Acetaminophen (Tylenol) 500 mg PO Q6H PRN PRN Reason: pain Al Hydrox/Mg Hydrox/Simethicone (Mag-Al Plus Susp Liq) 30 ml PO Q6H PRN PRN Reason: DYSPEPSIA Al Hydroxide/Mg Hydroxide (Milk Of Magnesia Liq) 30 ml PO Q12H PRN PRN Reason: Mild Constipation Allergies Allergy/AdvReac Type Severity Reaction Status Date / Time penicillin G Allergy Severe Anaphylaxis Verified 02/11/18 04:03 Home Medications Medication Instructions Recorded Confirmed Type No Known Home Medications 02/11/18 02/11/18 History Exam Vital signs: Vital Signs 02/11/18 03:44 02/11/18 04:03 02/11/18 09:00 Temperature 98.2 F Pulse Rate 55 L 56 L 124 H Respiratory Rate 16 18 20 Blood Pressure 89/50 L 90/51 L 128/95 H Pulse Oximetry 99 96 02/11/18 10:24 02/11/18 14:00 Temperature 98.9 F Pulse Rate 75 Respiratory Rate 20 24 Blood Pressure 148/74 H Pulse Oximetry 98 Intake & Output 02/10/18 02/11/18 02/11/18 18:59 06:59 18:59 Weight 140 lb - Constitutional severe distress, thin, chronically ill appearing - Routine Psychiatric Exam Present: unable to assess Mental Status Examination Appearance: Disheveled Consciousness: Alert Motor Activity: Other (In bed) Speech: Rapid Language: Perseveration ("I am not Jelly.") Fund of Knowledge: Poor Attention and Concentration: Inadequate Mood: Other (Unable to assess) Affect: Other (Patient is perseverative and illogical.) Thought Process & Associations: Disorganized Thought Content: Depersonalization Hallucination Type: None Delusion Type: Other (Unable to assess) Suicidal Ideation: No Suicidal Plan: No Suicidal Intention: No Homicidal Ideation: No Homicidal Plan: No Homicidal Intention: No Insight: Poor Judgment: Poor Assessment and Plan - Plan Plan: Estimated LOS: Patient's last admission in 2016 was brief. Hoping for an equally brief admission this time. Justification for Continued Inpatient Stay: Moving this patient to a less restrictive environment would likely result in decompensation.
[2018-02-11] MEDS ORDERED: Chlorpromazine Inj 50 MG/2 ML Ampule IM SCH (18:15)
[2018-02-12 08:09] LABS: Calcium 8.7 mg/dL (8.5-10.1); Carbon Dioxide 25.8 meq/L (21.0-32.0); Potassium 4.5 meq/L (3.5-5.1)
[2018-02-12 08:13] LABS: Chol/HDL Ratio 3.42 Ratio; HDL Cholesterol 79.2 mg/dL (40.0-60.0)
[2018-02-12 15:39] LABS: Hemoglobin A1c 5.1 % (4.3-6.0)
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
[2018-02-12] MEDS ORDERED: Sod Chloride 0.9% Inj 1,000 ML IV.CONT SCH (18:15)
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
--- NOTE | 2018-02-12 20:54 | XR ---
EXAM DATE: 02/12/2018 8:50 PM EST AGE/SEX: 62 years / Female INDICATIONS: Infiltrate. CLINICAL DATA: This is the patient's initial encounter. Patient reports that signs and symptoms have been present for 1 day and indicates a pain score of Nonresponsive. MEDICAL/SURGICAL HISTORY: . Psychosis NOS Non-responsive. COMPARISON: No prior exams available for comparison. FINDINGS: A single AP view of the chest demonstrates the lungs to be symmetrically aerated without evidence of mass, infiltrate or effusion. The cardiomediastinal contours are unremarkable. Osseous structures a re intact. CONCLUSION: The lungs are clear. Electronically signed by: Mario Alberto Oakley MD 02/12/2018 8:53 PM EST
[2018-02-13 08:09] LABS: Baso # (Auto) 0.1 th/mm3 (0.0-0.2); Baso % (Auto) 2.6 % (0.0-2.0); Eos # (Auto) 0.1 th/mm3 (0.0-0.4); Hemoglobin 11.2 gm/dL (11.6-15.3); Lymph # (Auto) 0.8 th/mm3 (1.0-4.8); Lymph % (Auto) 25.2 % (9.0-44.0); Mean Corpuscular HGB Conc 32.9 % (32.0-36.0); Mean Corpuscular Hemoglobin 27.8 pg (27.0-34.0); Mean Corpuscular Volume 84.4 fL (80.0-100.0); Mean Platelet Volume 8.7 fL (7.0-11.0); Mono # (Auto) 0.2 th/mm3 (0.0-0.9); Mono % (Auto) 8.1 % (0.0-8.0); Neut # (Auto) 1.9 th/mm3 (1.8-7.7); Neut % (Auto) 61.1 % (16.0-70.0); Platelet Count 234 th/mm3 (150-450); Red Blood Count 4.03 mil/mm3 (4.00-5.30); White Blood Count 3.1 th/mm3 (4.0-11.0)
[2018-02-13 08:43] LABS: Albumin 3.4 g/dL (3.4-5.0); Anion Gap 8 meq/L (5-15); Aspartate Aminotransferase 21 U/L (15-37); Blood Urea Nitrogen 17 mg/dL (7-18); Calcium 8.5 mg/dL (8.5-10.1); Chloride 111 meq/L (98-107); Glomerular Filtration Rate 60 mL/min (>89); Glucose,Random 77 mg/dL (74-106); Potassium 4.4 meq/L (3.5-5.1); Sodium 145 meq/L (136-145)
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
[2018-02-13 09:09] LABS: Alanine Aminotransferase 15 U/L (10-53); Alkaline Phosphatase 103 U/L (45-117); Creatine Kinase 323 U/L (26-192); Total Protein 7.2 g/dL (6.4-8.2); Vitamin B12 353 pg/mL (193-986)
[2018-02-13 09:22] LABS: CKMB Percent 1.1 % (0.0-4.0); Creatine Kinase MB 3.4 ng/mL (0.5-3.6)
[2018-02-13 09:53] LABS: RPR Screen For Reflex FTA Nonreactive (Nonreactive)
--- NOTE | 2018-02-13 10:29 | P.CONPSY ---
Provisional Diagnosis Admission Date: February 11, 2018 13:40 [place] I.: Psychosis not otherwise specified History of Present Illness Service: Psychiatry Consult date: 02/13/18 Requesting Physician: Michael Cedillo Reason for Consult: Second opinion petition supporting [place] Primary Care Provider: No Primary Care Physician History of Present Illness: Patient is a 62 white female well known to us from multiple prior contacts admitted to Dr. Cedillo service under the Wagner act. His H&P reviewed and agreed with. Dr. Cedillo assigned first opinion petition supporting Tk20 act. I agree. Patient meets criteria for involuntary psychiatric hospitalization thus I will cosign second opinion petition supporting Tk20 act. Patient seen by me on 4 E. Patient continues markedly confused with repetitious monotone speaking of single syllable words, markedly perseverative loud at times somewhat agitated patient has needed multiple ETO's over the past 2 days. Review of Systems All other systems reviewed negative except as stated in HPI PMFSH - History History Provided By: Patient, Medical Record - Medical History Medical History: Medical History (Last Reviewed 02/13/18 @ 07:56 by Prakash Garcia) Anxiety History of Clostridium difficile infection History of gastroesophageal reflux (GERD) History of psychosis History of schizophrenia Hx of gallstones Hypertension - Surgical History Surgical History: Surgical History (Last Reviewed 02/12/18 @ 18:01 by Bertha Quevedo) History of orthopedic surgery Hx of tonsillectomy - Family History Family History: Family History (Last Reviewed 02/13/18 @ 07:56 by Prakash Garcia) Other Family history unobtainable due to patient's condition - Tobacco History Tobacco Use In Past 30 Days: No Smoking Status: Former smoker Tobacco Type: Cigarettes - Alcohol History How Often Do You Have a Drink Containing Alcohol: Never - Substance Use History Substance History: No History of Abuse - Travel History Recent Travel in the [place] Within the Last 8 Weeks: No Recent Travel Out of the Country Within the Last 8 Weeks: No - Immunization History Tetanus Immunization: Unsure Hx Influenza Vaccine This Season: No Medications and Allergies Active Medications: Active Medications Acetaminophen (Tylenol) 500 mg PO Q6H PRN PRN Reason: pain Al Hydrox/Mg Hydrox/Simethicone (Mag-Al Plus Susp Liq) 30 ml PO Q6H PRN PRN Reason: DYSPEPSIA Al Hydroxide/Mg Hydroxide (Milk Of Magnesia Liq) 30 ml PO Q12H PRN PRN Reason: Mild Constipation Diphenhydramine HCl (Benadryl) 50 mg PO Q6H PRN PRN Reason: ANXIETY AND/OR AGITATION Last Admin: 02/13/18 10:18 Dose: 50 mg Diphenhydramine HCl (Benadryl) 50 mg PO HS PRN PRN Reason: INSOMNIA Olanzapine (Zyprexa) 5 mg PO BID LEILA Last Admin: 02/13/18 10:05 Dose: 5 mg Olanzapine (Zyprexa Inj) 5 mg IM Q12HR PRN PRN Reason: ONLY IF REFUSES PO Allergies Allergy/AdvReac Type Severity Reaction Status Date / Time penicillin G Allergy Severe Anaphylaxis Verified 02/11/18 04:03 Home Medications Medication Instructions Recorded Confirmed Type No Known Home Medications 02/11/18 02/11/18 History Exam Vital signs: Vital Signs 02/12/18 18:07 02/13/18 06:00 Temperature 97.4 F L 97.7 F Pulse Rate 81 69 Respiratory Rate 18 12 Blood Pressure 164/77 H 126/57 L Pulse Oximetry 99 97 Intake & Output 02/12/18 02/13/18 02/13/18 18:59 06:59 18:59 Intake Total 60 / 60 120 / 120 Balance 60 / 60 120 / 120 Intake: Oral 60 / 60 120 / 120 Other: # Voids 1 Mental Status Examination Appearance: Disheveled Consciousness: Alert Motor Activity: Other (In bed) Speech: Rapid, Incoherent, Other (repetative) Language: Perseveration ("I am not Jelly.") Fund of Knowledge: Poor Attention and Concentration: Inadequate Mood: Anxious Affect: Labile, Other (Patient is perseverative and illogical.) Thought Process & Associations: Disorganized Thought Content: Depersonalization Hallucination Type: None Delusion Type: Other (Unable to assess) Suicidal Ideation: No Suicidal Plan: No Suicidal Intention: No Homicidal Ideation: No Homicidal Plan: No Homicidal Intention: No Insight: Poor Judgment: Poor Assessment and Plan - Assessment (1) Unspecified psychosis Code(s): F29 - Unspecified psychosis not due to a substance or known physiological condition Status: Acute - Plan Plan: Patient remains quite psychotic and agitated perseverative patient does meet criteria for involuntary psychiatric hospitalization thus I will cosign second opinion petition supporting Wagner act Justification for Continued Inpatient Stay: At this time patient would decompensate a place to a lower level of care Discharge Planning: To be determined
--- NOTE | 2018-02-13 12:39 | P.DIET ---
Nutritional Evaluation Type of nutrition evaluation: initial Nutrition consult regarding: Diet Evaluation Nutrition screening: [facility] [place] Screening comments: 02/12/18 [facility] [place] Poor PO Intake Subjective Oral Diet Tolerance Assessment Indicates: Edentulous Subjective Comments: Pt visited during lunch. Sitter w/pt and basically feeding pt; pt initiated feeding herself for one bite of food and to take a drink of her Ensure. Pt talking in nonsensical guttural tone throughout this visit. Pt is edentulous and swallows food whole w/out a visual attempt to masticate the food. Objective - Diagnosis Psychosis NOS - Objective % IBW: 117 Body Weight Used for Calculations: Actual (63.5 kg) Energy Needs - Lower Range (kCal/kg): 25 Energy Needs - Upper Range (kCal/kg): 30 Lower Limit kCal/kg (kCals): 1,588 Upper Limit kCal/kg (kCals): 1,905 Lower Limit Protein Factor (Grams per Kg): 1.1 Upper Limit Protein Factor (Grams per Kg): 1.3 Lower Protein Needs (Protein): 70 Upper Protein Needs (Protein): 83 Dietitian Reviewed in Medical Record: Current diet, Curent medications, Intake & Output, Labs, Medical history Diet Order: Regular Oral Diet Intake Amount: Fair 50-75% Objective Comments: PMH: anxiety, C-Diff, GERD, HTN, AFib, Psychosis, Schizophrenia, Gallstones A1C 5.1 Meds include: Zyprexa Feeding - Current PO Supplement Current Supplement: Ensure Enlive Current Frequency of Supplement: Three times a day Current kCals Provided by Supplement: 350 Current Protein Provided by Supplement: 20 Assessment Assessment: Pt is at nutritional risk r/t need for diet modification. Pt is edentulous. Rec downgrade diet texture to Mech Soft. Pt may benefit from an ST eval. Agree w/MD order for Ensure Enlive TID. Labs reviewed. Dietitian will follow. Recommendations: 1. Rec downgrade diet texture to Mech Soft 2. Pt may benefit from an ST eval. 3. Agree w/MD order for Ensure Enlive TID 4. Dietitian will follow Dietitian to Monitor: Lab values, Supplement acceptance, Intake & Output, Diet tolerance, Weight change, PO Intake, Medical course
--- NOTE | 2018-02-13 15:52 | P.PNPSY ---
Subjective Remarks: Patient seen for follow-up, chart reviewed. Discussion with nursing staff reported that patient patient woke up last night around 4:30 AM and continues with repetitive speech (echolalia), refused medications last night but did take this morning. No aggressive behavior or yelling. Patient was found in hospital chair with sitter at bedside noted to have continued repetitive speech (echolalia) but was able to engage with better eye contact and slight improvement in engaging in answering questions during interview. Patient did report having some constipation but would throughout interview states "I am not Jelly" repeatedly which she was able to cease from doing when prompted to. Patient continues require assistance with ADLs at this time along with p.o. intake of food. Patient's was updated on how patient was doing overnight as well as the plan and requested to speak with his via telephone later today. Review of Systems All other systems reviewed negative except as stated in HPI Mental Status Examination Appearance: Disheveled (But clean) Consciousness: Alert Motor Activity: Other (In bed) Speech: Incoherent (At times but also patient is edentulous with makes comprehension somewhat difficult), Other (Echolalia) Language: Perseveration ("I am not Jelly.") Fund of Knowledge: Poor Attention and Concentration: Inadequate (Slightly improved) Mood: Anxious Affect: Labile, Anxious, Other (Patient is perseverative and illogical.) Thought Process & Associations: Disorganized, Other ([place] responses) Thought Content: Depersonalization Hallucination Type: None Delusion Type: Other (Unable to assess) Suicidal Ideation: No Suicidal Plan: No Suicidal Intention: No Homicidal Ideation: No Homicidal Plan: No Homicidal Intention: No Insight: Poor Judgment: Poor Assessment and Plan - Assessment (1) Unspecified psychosis Code(s): F29 - Unspecified psychosis not due to a substance or known physiological condition Status: Acute - Plan Plan: Patient continues with disorganization, continues with echolalia during interview and continues with confusion. Patient also continues report that she is not herself with degree of depersonalization. Patient was able to take Zyprexa early this morning. Dietitian input appreciated. Patient was switched to mechanical soft diet as well as ST eval ordered. We will continue recommendations as per primary medical team, hospitalist input appreciated. We will continue to monitor mood and behavior. Patient to continue one-to-one observation. Discharge planning in progress. Justification for Continued Inpatient Stay: At risk of further decompensation at lower level care.
[2018-02-14 08:18] LABS: Hematocrit 32.4 % (35.0-46.0); Hemoglobin 10.7 gm/dL (11.6-15.3); Mean Corpuscular Hemoglobin 27.5 pg (27.0-34.0); Mean Corpuscular Volume 83.5 fL (80.0-100.0); Mean Platelet Volume 9.1 fL (7.0-11.0); Platelet Count 211 th/mm3 (150-450); Red Blood Count 3.88 mil/mm3 (4.00-5.30); Red Cell Distribution Width 15.8 % (11.6-17.2); White Blood Count 4.4 th/mm3 (4.0-11.0)
[2018-02-14 08:33] LABS: Calcium 8.4 mg/dL (8.5-10.1); Carbon Dioxide 22.5 meq/L (21.0-32.0); Potassium 4.7 meq/L (3.5-5.1)
--- NOTE | 2018-02-14 08:36 | P.PN ---
Subjective Interval history: Follow-up visit for acute psychosis and JOSE CRUZ. Patient seen and examined sitting up in bed in no acute distress. Staff reports patient did not sleep overnight, less talkative but does state that her name is Jelly. No other acute events reported. Physical Exam Vital signs: Vital Signs 02/13/18 17:38 02/14/18 05:56 Temperature 98.0 F 98.7 F Pulse Rate 80 72 Respiratory Rate 17 16 Blood Pressure 140/97 H 149/73 H Pulse Oximetry 98 Intake & Output 02/13/18 02/14/18 02/14/18 18:59 06:59 18:59 Intake Total 0 / 0 Balance 0 / 0 Intake: Oral 0 / 0 Other: # Voids 1 Narrative: GENERAL: Thin, frail, cachectic appearing female patient. In no acute distress. SKIN: Warm and dry. Multiple areas of bruising noted on bilateral upper extremities. HEAD: Atraumatic. Normocephalic. EYES: Pupils equal and round. No scleral icterus. No injection or drainage. ENT: No nasal bleeding or discharge. Mucous membranes pink and moist. NECK: Trachea midline. CARDIOVASCULAR: Regular rate and rhythm. RESPIRATORY: No accessory muscle use. Clear to auscultation. Breath sounds equal bilaterally. GASTROINTESTINAL: Abdomen soft, non-tender, nondistended. +BS. MUSCULOSKELETAL: Extremities without clubbing, cyanosis, or edema. No obvious deformities. NEUROLOGICAL: Awake and alert. No obvious cranial nerve deficits. Able to move all extremities spontaneously. Normal speech. PSYCHIATRIC: Confused. Judgment and insight poor. Results - Labs CBC & Chem 7: 02/14/18 07:58 02/14/18 07:58 Laboratory Results - last 24 hr 02/13/18 02/13/18 07:26 07:27 Sodium 145 Potassium 4.4 Chloride 111 H Carbon Dioxide 26.0 Anion Gap 8 BUN 17 Creatinine 0.94 Estimated GFR 60 L Random Glucose 77 Calcium 8.5 Total Bilirubin 0.5 AST 21 ALT 15 Alkaline Phosphatase 103 Total Creatine Kinase 323 H CK-MB (CK-2) 3.4 CK-MB (CK-2) % 1.1 Total Protein 7.2 Albumin 3.4 Vitamin B12 353 TSH 5.720 H RPR Nonreactive Assessment and Plan - Plan 62-year-old female with a history of psychosis and admitted under Wagner act: Schizophrenia Acute Psychosis -Management per psychiatric team -Workup to rule out organic cause of patient's acute psychosis: UA negative, TSH mildly elevated, free T4 WNL, B12 WNL, RPR WNL, CXR negative, UDS not completed. So far negative. Suspected JOSE CRUZ Creatinine 1.19. Only other creatinine in the system 0.72 03/31/16 Likely secondary to poor oral intake/dehydration. BUN 22. May be contributing to patient's altered mental status. -UA negative, s/p IV fluids with improvement in renal function. -Off IV fluids for past 24 hours, slight increase in creatinine and BUN, encourage oral intake. Recheck BMP tomorrow if creatinine and BUN still elevated restart IV fluids. -Avoid nephrotoxic agents History of hypertension but patient is currently hypotensive, suspect secondary to hypovolemia secondary to poor oral intake -BP stable Dyslipidemia -ASCVD rist 4.9%, no statin recommended at this moment -Dietary and lifestyle changes. Protein calorie malnutrition -Consult new autos delivery driver -OT/PT eval/tx -fall precautions DVT prophylaxis -patient is ambulatory Discussed Condition With: Patient and RN
[2018-02-14 08:42] LABS: Free T4 (Free Thyroxine) 0.96 ng/dL (0.76-1.46); Thyroid Stimulating Hormone 5.62 uIU/mL (0.358-3.740)
[2018-02-14 13:12] LABS: Bilirubin,Urine Negative (Negative); Clarity,Urine Clear (Clear); Color,Urine Yellow (Yellw/Straw); Glucose,Urine (UA) Negative (Negative); Leukocyte Esterase,Urine Negative (Negative); Nitrite,Urine Negative (Negative); Specific Gravity,Urine 1.016 (1.002-1.035); Squamous Epithelial Cell,Urine <1 /hpf (0-5)
--- NOTE | 2018-02-14 16:46 | P.PNPSY ---
Subjective Remarks: Pt seen and discussed with staff and chart reviewed. Staff report that pt was agitated, spewing profanities with pressured speech and echolalia and disorganization. She became agitated with nursing care. Staff report that after 130pm pt has been calm and agitation resolved. Poor sleep last night, but pt laid down this afternoon but did not nap. She remains on 1:1 due to severe psychosis and unpredictability. U/A was negative. She ate much better this evening. Mental Status Examination Appearance: Disheveled (But clean) Consciousness: Alert Motor Activity: Other (In bed) Speech: Incoherent (At times but also patient is edentulous with makes comprehension somewhat difficult), Other (Echolalia) Language: Perseveration ("I am not Jelly.") Fund of Knowledge: Poor Attention and Concentration: Inadequate (Slightly improved) Mood: Anxious Affect: Flat, Labile, Other (Patient is perseverative and illogical.) Thought Process & Associations: Disorganized, Other ([place]) Thought Content: Depersonalization Hallucination Type: None Delusion Type: Other (Unable to assess) Suicidal Ideation: No Suicidal Plan: No Suicidal Intention: No Homicidal Ideation: No Homicidal Plan: No Homicidal Intention: No Insight: Poor Judgment: Poor Assessment and Plan - Assessment (1) Unspecified psychosis Code(s): F29 - Unspecified psychosis not due to a substance or known physiological condition Status: Acute - Plan Plan: Continue current tx plan. Patient to continue one-to-one observation. Discharge planning in progress. Justification for Continued Inpatient Stay: psychosis
[2018-02-15 08:20] LABS: Calcium 8.9 mg/dL (8.5-10.1); Carbon Dioxide 25.1 meq/L (21.0-32.0); Potassium 4.2 meq/L (3.5-5.1)
--- NOTE | 2018-02-15 08:44 | P.PN ---
Subjective Interval history: Follow-up visit for psychosis and JOSE CRUZ. Spoke with nurse reports patient is minimally verbal today, has not wanted to get up and ambulate, episode of incontinence overnight and not eating much or drinking much. Patient seen and examined sitting up in the bed with assistant professor of psychology at bedside. When asked how she is doing and called by her name "I am not Jelly". Does not verbalize any complaints, not answering questions. Physical Exam Vital signs: Vital Signs 02/14/18 16:25 02/15/18 06:00 Temperature 98.4 F 97.7 F Pulse Rate 71 88 Respiratory Rate 16 18 Blood Pressure 123/65 Pulse Oximetry 96 93 L Intake & Output 02/14/18 02/15/18 02/15/18 18:59 06:59 18:59 Intake Total 720 / 720 0 / 0 Balance 720 / 720 0 / 0 Intake: Oral 720 / 720 0 / 0 Other: # Voids 2 Narrative: GENERAL: Thin, frail, cachectic appearing female patient. In no acute distress. SKIN: Warm and dry. Multiple areas of bruising noted on bilateral upper extremities. HEAD: Atraumatic. Normocephalic. EYES: Pupils equal and round. No scleral icterus. No injection or drainage. ENT: No nasal bleeding or discharge. Mucous membranes pink and moist. NECK: Trachea midline. CARDIOVASCULAR: Regular rate and rhythm. RESPIRATORY: No accessory muscle use. Clear to auscultation. Breath sounds equal bilaterally. GASTROINTESTINAL: Abdomen soft, non-tender, nondistended. +BS. MUSCULOSKELETAL: Extremities without clubbing, cyanosis, or edema. No obvious deformities. NEUROLOGICAL: Awake and alert. No obvious cranial nerve deficits. Able to move all extremities spontaneously. Few words but speech is clear. PSYCHIATRIC: Confused. Judgment and insight poor. Results - Labs CBC & Chem 7: 02/14/18 07:58 02/15/18 07:25 Laboratory Results - last 24 hr 02/14/18 02/14/18 02/14/18 07:58 07:58 12:32 WBC 4.4 RBC 3.88 L Hgb 10.7 L Hct 32.4 L MCV 83.5 MCH 27.5 MCHC 33.0 RDW 15.8 Plt Count 211 MPV 9.1 Hematology Comments Sodium 142 Potassium 4.7 Chloride 109 H Carbon Dioxide 22.5 Anion Gap 11 BUN 21 H Creatinine 1.12 H Estimated GFR 49 L Random Glucose 77 Calcium 8.4 L TSH 5.620 H Free T4 0.96 Urine Color Yellow Urine Clarity Clear Urine pH 7.0 Ur Specific [place] 1.016 Urine Protein Negative Urine Glucose (UA) Negative Urine Ketones Negative Urine Occult Blood Negative Urine Nitrate Negative Urine Bilirubin Negative Urine Urobilinogen Less than 2 Ur Leukocyte Esterase Negative Urine RBC 1 Urine WBC Less than 1 Ur Squamous Epith Cells <1 Micro UA Comment Cath-culture not ind Ur Microscopic Review Not Reportable Urine Culture Comments Cath-cult not ind 02/15/18 07:25 WBC RBC Hgb Hct MCV MCH MCHC RDW Plt Count MPV Hematology Comments Sodium 143 Potassium 4.2 Chloride 108 H Carbon Dioxide 25.1 Anion Gap 10 BUN 20 H Creatinine 1.15 H Estimated GFR 48 L Random Glucose 88 Calcium 8.9 TSH Free T4 Urine Color Urine Clarity Urine pH Ur Specific [place] Urine Protein Urine Glucose (UA) Urine Ketones Urine Occult Blood Urine Nitrate Urine Bilirubin Urine Urobilinogen Ur Leukocyte Esterase Urine RBC Urine WBC Ur Squamous Epith Cells Micro UA Comment Ur Microscopic Review Urine Culture Comments Assessment and Plan - Plan 62-year-old female with a history of psychosis and admitted under Wagner act: Schizophrenia Acute Psychosis -Management per psychiatric team -Workup to rule out organic cause of patient's acute psychosis: UA negative, TSH mildly elevated, free T4 WNL, B12 WNL, RPR WNL, CXR negative, UDS not completed. So far negative. Suspected JOSE CRUZ Creatinine 1.19. Only other creatinine in the system 0.72 03/31/16 Likely secondary to poor oral intake/dehydration. -UA negative - Patient with minimal p.o. intake, IVF for hydration, monitor renal function in the next several days. -Avoid nephrotoxic agents History of hypertension but patient is currently hypotensive, suspect secondary to hypovolemia secondary to poor oral intake -BP stable Dyslipidemia -ASCVD rist 4.9%, no statin recommended at this moment -Dietary and lifestyle changes. Protein calorie malnutrition -Consult neurophysiologist -OT/PT eval/tx, speech therapy consulted too. -fall precautions DVT prophylaxis- start subq heparin due to decrease ambulations. Discussed Condition With: GATO
[2018-02-15] MEDS: Dextrose 5%/NaCl 0.45% Inj 1,000 ML IV.CONT SCH ×2 (09:20→21:01)
--- NOTE | 2018-02-15 18:04 | P.PNPSY ---
Subjective Remarks: Pt seen and discussed with staff. She refused oral medications so olanzapine was given by injection. She remains on 1:1 due to severe psychosis. Today she has been growling and acting very bizarre. She has delusions that someone else' s legs are on her body. No aggression today. Mental Status Examination Appearance: Disheveled (But clean) Consciousness: Alert Motor Activity: Other (In bed) Speech: Incoherent (At times but also patient is edentulous with makes comprehension somewhat difficult), Other (Echolalia) Language: Perseveration ("I am not Jelly.") Fund of Knowledge: Poor Attention and Concentration: Inadequate (Slightly improved) Mood: Anxious Affect: Flat, Labile, Other (Patient is perseverative and illogical.) Thought Process & Associations: Disorganized, Other ([place]) Thought Content: Depersonalization Hallucination Type: None Delusion Type: Other (Unable to assess) Suicidal Ideation: No Suicidal Plan: No Suicidal Intention: No Homicidal Ideation: No Homicidal Plan: No Homicidal Intention: No Insight: Poor Judgment: Poor Assessment and Plan - Assessment (1) Unspecified psychosis Code(s): F29 - Unspecified psychosis not due to a substance or known physiological condition Status: Acute - Plan Plan: Continue current tx plan. Patient to continue one-to-one observation. Discharge planning in progress. Justification for Continued Inpatient Stay: psychosis
[2018-02-15] MEDS: Heparin - SQ 10,000 UNITS/ML Vial SQ SCH (20:57)
[2018-02-16] MEDS: Heparin - SQ 10,000 UNITS/ML Vial SQ SCH ×2 (08:44→20:58)
[2018-02-16] MEDS: Dextrose 5%/NaCl 0.45% Inj 1,000 ML IV.CONT SCH ×2 (08:44→20:56)
--- NOTE | 2018-02-16 10:27 | P.PN ---
Subjective Interval history: Follow-up visit for psychosis and JOSE CRUZ. Patient seen and examined sitting up in bed with tech at bedside. Nurse reports patient has not been eating much as well as ambulating. No acute events overnight or this morning. Patient with grunting sounds and few spoken words, not following directions. Physical Exam Vital signs: Vital Signs 02/16/18 05:16 Temperature 97.8 F Pulse Rate 52 L Blood Pressure 143/65 H Pulse Oximetry 100 Intake & Output 02/15/18 02/16/18 02/16/18 18:59 06:59 18:59 Intake Total 360 / 360 1240 / 1240 1000 / 1000 Output Total Balance 360 / 360 1239 / 1239 1000 / 1000 Weight 59.3 kg Intake: IV 1000 / 1000 1000 / 1000 D5W/04/01 NS Inj 1,000 ML @ 84 1000 / 1000 1000 / 1000 mls/hr IV.CONT .[id number] LEILA Rx# :[id number] Oral 360 / 360 240 / 240 Output: Urine Other: # Voids 2 2 Date of Last Bowel Movement 02/15/18 Narrative: GENERAL: Thin, frail, cachectic appearing female patient. In no acute distress. SKIN: Warm and dry. Multiple areas of bruising noted on bilateral upper extremities. HEAD: Atraumatic. Normocephalic. EYES: Pupils equal and round. No scleral icterus. No injection or drainage. ENT: No nasal bleeding or discharge. Mucous membranes pink and moist. NECK: Trachea midline. CARDIOVASCULAR: Regular rate and rhythm. RESPIRATORY: No accessory muscle use. Clear to auscultation. Breath sounds equal bilaterally. GASTROINTESTINAL: Abdomen soft, non-tender, nondistended. +BS. MUSCULOSKELETAL: Extremities without clubbing, cyanosis, or edema. No obvious deformities. NEUROLOGICAL: Awake and alert. No obvious cranial nerve deficits. Able to move all extremities spontaneously. Grunting with few spoken words. PSYCHIATRIC: Confused. Judgment and insight poor. Results - Labs CBC & Chem 7: 02/14/18 07:58 02/15/18 07:25 Assessment and Plan - Plan 62-year-old female with a history of psychosis and admitted under Wagner act: Schizophrenia Acute Psychosis -Management per psychiatric team -Workup to rule out organic cause of patient's acute psychosis: UA negative, TSH mildly elevated, free T4 WNL, B12 WNL, RPR WNL, CXR negative, UDS not completed. So far negative. Suspected JOSE CRUZ Creatinine 1.19. Only other creatinine in the system 0.72 03/31/16 Likely secondary to poor oral intake/dehydration. -UA negative - Patient with minimal p.o. intake, IVF for hydration, monitor renal function in the next several days. -Avoid nephrotoxic agents History of hypertension but patient is currently hypotensive, suspect secondary to hypovolemia secondary to poor oral intake -BP stable Dyslipidemia -ASCVD rist 4.9%, no statin recommended at this moment -Dietary and lifestyle changes. Protein calorie malnutrition -Consult medical research associate -OT/PT eval/tx, speech therapy consulted too. -fall precautions DVT prophylaxis- subq heparin Discussed Condition With: GATO
--- NOTE | 2018-02-16 10:50 | P.TTN ---
- Patient Problems Problems: 1. Discharge planning 2. Medication compliance 3. Knowledge deficit 4. Lack of coping skills - Progress Toward Goals Provider Present: Dr. Erwin Cedillo Provider Input: 02/16/2018; per doctor patient has unpredictable moods, medication is about normal range, no adjustments at this time. Nurse(s) Present: Jesica Manley Nurse Input: Patient is loud, requirs 1:1, and rediction with behavior; assist with ADL's, and meals Psychiatric Counselors Present: Taryn Wiggins [facility] Psychiatric Therapist Input: 02/16/2018; counselor have faxed level 1 and [phone] to [facility], will follow-up with facility for placement Group Spec/RT/OT/LOCKE Present: Atul Justin, OT Group Spec/RT/OT/LOCKE Input: 02/16/2018; per OT patient is unable to participate with activities at this time - Documentation Teaching Recipient: Patient
[2018-02-16] MEDS ORDERED: diphenhydrAMINE HCl 12.5 MG/5 ML Elixir UDC PO ONE (14:24)
--- NOTE | 2018-02-16 18:17 | P.PNPSY ---
Subjective Remarks: Patient seen for follow-up, chart reviewed. Discussion with nursing staff reported that patient refused medications this morning continue with one-to-one observation for safety. Patient was found lying in hospital bed noted to be with limited response to interview though was alert and acknowledged technical writer's presence with occasional eye contact. Patient would occasionally have some labored much improved since admission. Patient also continues to be noted to be confused at times which states that she has not Jelly and attempt to get out of bed although noted to be somewhat unsteady requiring assistance. Patient also mentioning "this is not right to get out of here". Patient was unable to elaborate continue very concrete responses. Nursing report also mentioned that over the weekend patient had moments of lucidity and clarity which she would be very appropriate and that apparently conversation for some time will revert back to her confusion and disorientation. Review of Systems All other systems reviewed negative except as stated in HPI Mental Status Examination Appearance: Disheveled (But clean) Consciousness: Alert Motor Activity: Other (In bed) Speech: Incoherent, Other (Echolalia) Language: Perseveration ("I am not Jelly.") Fund of Knowledge: Poor Attention and Concentration: Inadequate (Slightly improved) Mood: Anxious Affect: Flat, Labile, Other (Patient is perseverative and illogical.) Thought Process & Associations: Disorganized, Other ([place]) Thought Content: Depersonalization Hallucination Type: None Delusion Type: Other (unable to assess) Suicidal Ideation: No Suicidal Plan: No Suicidal Intention: No Homicidal Ideation: No Homicidal Plan: No Homicidal Intention: No Insight: Poor Judgment: Poor Assessment and Plan - Assessment (1) Unspecified psychosis Code(s): F29 - Unspecified psychosis not due to a substance or known physiological condition Status: Acute - Plan Plan: Patient currently with lessening of echolalia, noted to have more engagement in attention during interview. Patient continues with some disorganization and concrete thought process. There have been episodes of clarity as reported by nursing staff over the weekend would revert back to disorganization. We will continue to titrate olanzapine to 7.5 mg p.o. twice daily for psychosis. Continue present medications. Continue to monitor her behavior. Discharge planning in progress. Continue one-to-one observation for safety. Justification for Continued Inpatient Stay: At risk of further decompensation at lower level care.
--- NOTE | 2018-02-17 08:38 | P.PN ---
Subjective Interval history: Follow-up for psychosis and poor p.o intake. Nurse reports patient pulled out her IV overnight, eating and drinking very little, refused labs this morning. Patient is seen and examined sitting up in antonio-chair with RN as sitter present. She tells me "I'm not Jelly", she is unable to state her name or provide meaningful information relating to orientation. Today she is speaking in full sentences and is asking why her chair does not move when she sees it is on wheels. Low grade temps recorded overnight, no other acute events. Physical Exam Vital signs: Vital Signs 02/16/18 18:03 02/17/18 05:27 Temperature 99.0 F 99.1 F Pulse Rate 88 70 Respiratory Rate 19 20 Blood Pressure 161/95 H 158/92 H Pulse Oximetry 93 L 99 Intake & Output 02/16/18 02/17/18 02/17/18 18:59 06:59 18:59 Intake Total 1000 / 1000 1000 / 1000 Balance 1000 / 1000 1000 / 1000 Intake: IV 1000 / 1000 1000 / 1000 D5W/1/2 NS Inj 1,000 ML @ 84 1000 / 1000 1000 / 1000 mls/hr IV.CONT .[id number] LEILA Rx# :[id number] Oral 0 / 0 Other: # Voids 3 Date of Last Bowel Movement 02/15/18 02/15/18 Narrative: GENERAL: Thin, frail, cachectic appearing female patient. In no acute distress. SKIN: Warm and dry. Multiple areas of bruising noted on bilateral upper extremities. HEAD: Atraumatic. Normocephalic. EYES: Pupils equal and round. No scleral icterus. No injection or drainage. ENT: No nasal bleeding or discharge. Mucous membranes pink and moist. NECK: Trachea midline. CARDIOVASCULAR: Regular rate and rhythm. RESPIRATORY: No accessory muscle use. Clear to auscultation. Breath sounds equal bilaterally. GASTROINTESTINAL: Abdomen soft, non-tender, nondistended. +BS. MUSCULOSKELETAL: Extremities without clubbing, cyanosis, or edema. No obvious deformities. NEUROLOGICAL: Awake and alert, oriented x0. No obvious cranial nerve deficits. Able to move all extremities spontaneously. Speech is clear. PSYCHIATRIC: Confused. Judgment and insight poor. Results - Labs CBC & Chem 7: 02/14/18 07:58 02/15/18 07:25 Assessment and Plan - Plan 62-year-old female with a history of psychosis and admitted under Wagner act: Schizophrenia Acute Psychosis -Management per psychiatric team -Workup to rule out organic cause of patient's acute psychosis: UA negative, TSH mildly elevated, free T4 WNL, B12 WNL, RPR WNL, CXR negative, UDS not completed. So far negative. - Low grad tems, recheck UA Suspected JOSE CRUZ Creatinine 1.19. Only other creatinine in the system 0.72 03/31/16 Likely secondary to poor oral intake/dehydration. -UA negative - Patient with minimal p.o. intake, IVF for hydration, consult vascular access for PIV. -Refused labs, try tomorrow. -Avoid nephrotoxic agents History of hypertension but patient is currently hypotensive, suspect secondary to hypovolemia secondary to poor oral intake -BP stable, intermittently elevated likely due to agitation. Dyslipidemia -ASCVD rist 4.9%, no statin recommended at this moment -Dietary and lifestyle changes. Protein calorie malnutrition -Wastewater Project Manager following, continue supplementation shakes. Poor intake, continue IVF , start trial of Megace for appetite. - May need to initiate calorie count, in no improvement. -OT/PT eval/tx, speech therapy. -fall precautions DVT prophylaxis- subq heparin Discussed Condition With: Patient, RN,
[2018-02-17] MEDS: Heparin - SQ 10,000 UNITS/ML Vial SQ SCH ×2 (09:27→20:37)
--- NOTE | 2018-02-17 16:32 | P.PNPSY ---
Subjective Remarks: Patient seen for follow-up, chart reviewed. Discussion with nursing staff reported that patient with poor p.o. intake, previously on IV fluids with patient had pulled her IV line and requiring replacement. Patient continues with poor sleep was up at 4 AM. Patient was found sitting in hospital chair continues to be noted to have echolalia prior to her interview but was able to decrease this and engage superficially interview. Patient had repetitive statements of "this ain't right", "got to get out of here" and would at times states that she is not Jelly. Although patient but persisted with echolalia during interview would be able to pause and answer some concrete questions. Patient was encouraged to maintain adequate hygiene and nutritional intake. Patient had refuse p.o. medications and was administered IM formulation of medications. Patient later was not cooperative with replacement of IV line and required ETO of Geodon 10/diphenhydramine 50 mg to address ongoing symptoms of disorganization and agitation. Patient responded well to this medications and later was able to take a shower, lying calmly in bed in no longer with verbal agitation of repetition. Review of Systems All other systems reviewed negative except as stated in HPI Mental Status Examination Appearance: Disheveled (But clean) Consciousness: Alert Motor Activity: Other (In bed) Speech: Incoherent, Other (Echolalia) Language: Perseveration ("I am not Jelly.") Fund of Knowledge: Poor Attention and Concentration: Inadequate (Slightly improved) Mood: Anxious Affect: Labile, Other (Patient is perseverative and illogical.) Thought Process & Associations: Disorganized, Other ([place]) Thought Content: Depersonalization Hallucination Type: None Delusion Type: Other (unable to assess) Suicidal Ideation: No Suicidal Plan: No Suicidal Intention: No Homicidal Ideation: No Homicidal Plan: No Homicidal Intention: No Insight: Poor Judgment: Poor Assessment and Plan - Assessment (1) Unspecified psychosis Code(s): F29 - Unspecified psychosis not due to a substance or known physiological condition Status: Acute - Plan Plan: Patient continues to have episodes of yelling and echolalia on the unit and inconsistent with compliance with p.o. meds. Patient would have moments of behavioral control but requiring redirection at times and assistance with meals. Patient to continue one-to-one observation for safety. We will continue current medications and will add diphenhydramine 25 mg a.m./50 mg at bedtime as scheduled dosing along with Zyprexa. We will order EKG as patient may be able to tolerate having this done. Continue recommendations as per prior medical team, input appreciated. Continue to monitor mood and behavior. Discharge planning in progress. Justification for Continued Inpatient Stay: At risk of further decompensation at lower level care.
[2018-02-17 17:40] LABS: Bacteria,Urine Few /hpf; Bilirubin,Urine Negative (Negative); Clarity,Urine Clear (Clear); Color,Urine Yellow (Yellw/Straw); Glucose,Urine (UA) Negative (Negative); Hyaline Casts,Urine 3 /lpf (0-3); Leukocyte Esterase,Urine Negative (Negative); Mucus,Urine Few /lpf (Occasional); Nitrite,Urine Negative (Negative); Specific Gravity,Urine 1.009 (1.002-1.035); Squamous Epithelial Cell,Urine <1 /hpf (0-5)
[2018-02-17] MEDS: Dextrose 5%/NaCl 0.45% Inj 1,000 ML IV.CONT SCH ×2 (17:44→20:31)
[2018-02-18] MEDS: Heparin - SQ 10,000 UNITS/ML Vial SQ SCH ×2 (08:02→20:11)
[2018-02-18] MEDS: Megestrol Acetate Liq 400 MG/10 ML UDC PO SCH (08:19)
--- NOTE | 2018-02-18 08:53 | P.PNIM ---
Subjective Interval history: F/U JOSE CRUZ, HTN, Psychosis, severe protein calorie malnutrition Patient seen and examined sitting in the Erica Chair, sitter at bedside PAtient awake and alert with confusion, unable to answer questions appropriately. Denies any pain or SOB, stated "just go away" Sitter reported patient could be combative Nurse reported patient does not eat or drink, patient does not sleep well at night Physical Exam Vital signs: Vital Signs 02/17/18 17:59 02/18/18 06:21 Temperature 98.0 F Pulse Rate 65 72 Respiratory Rate 15 20 Blood Pressure 135/64 Pulse Oximetry 99 96 Intake & Output 02/17/18 02/18/18 02/18/18 18:59 06:59 18:59 Intake Total 1080 / 1080 120 / 120 Output Total 300 / 300 Balance 780 / 780 120 / 120 Intake: Oral 1080 / 1080 120 / 120 Output: Urine 300 / 300 Other: # Urine Diapers 3 Date of Last Bowel Movement 02/15/18 Narrative: GENERAL: Thin, frail looking, cachetic appearing female, in no acute distress SKIN: Warm and dry. bilateral upper extremities with multiple areas of ecchymosis HEAD: Atraumatic. Normocephalic. EYES: Pupils equal and round. No scleral icterus. No injection or drainage. ENT: No nasal bleeding or discharge. Mucous membranes pink and moist. NECK: Trachea midline. No JVD. CARDIOVASCULAR: Regular rate and rhythm. RESPIRATORY: No accessory muscle use. Clear to auscultation. Breath sounds equal bilaterally. GASTROINTESTINAL: Abdomen flat soft, non-tender, nondistended. Hepatic and splenic margins not palpable. MUSCULOSKELETAL: Extremities without clubbing, cyanosis, or edema. No obvious deformities. muscle wasting on lower extremities NEUROLOGICAL: Awake and alert, oriented X 0. No obvious cranial nerve deficits. Moving all w extremities. Normal speech. PSYCHIATRIC: flat mood and affect; insight and judgment poor with confusion. Results - Labs CBC & Chem 7: 02/14/18 07:58 02/15/18 07:25 Laboratory Results - last 24 hr 02/17/18 16:30 Urine Color Yellow Urine Clarity Clear Urine pH 6.0 Ur Specific [place] 1.009 Urine Protein Negative Urine Glucose (UA) Negative Urine Ketones Negative Urine Occult Blood Negative Urine Nitrate Negative Urine Bilirubin Negative Urine Urobilinogen Less than 2 Ur Leukocyte Esterase Negative Urine RBC 1 Urine WBC 2 Ur Squamous Epith Cells <1 Urine Bacteria Few H Hyaline Casts 3 Urine Mucus Few H Micro UA Comment Culture not ind Ur Microscopic Review Not Reportable Urine Culture Comments Culture not ind Assessment and Plan - Assessment (1) Severe protein-calorie malnutrition Code(s): E43 - Unspecified severe protein-calorie malnutrition Status: Acute (2) HTN (hypertension) Code(s): I10 - Essential (primary) hypertension Status: Acute (3) JOSE CRUZ (acute kidney injury) Code(s): N17.9 - Acute kidney failure, unspecified Status: Acute (4) Psychoses Code(s): F29 - Unspecified psychosis not due to a substance or known physiological condition Status: Acute - Plan 62-year-old female with a history of psychosis and admitted under Wagner act: Schizophrenia Acute Psychosis -Management per psychiatric team -Workup to rule out organic cause of patient's acute psychosis: UA negative, TSH mildly elevated, free T4 WNL, B12 WNL, RPR WNL, CXR negative, UDS not completed. So far negative. - Low grad tems, recheck UA Severe Protein calorie malnutrition -Cost Analyst following, continue supplementation shakes. - Poor intake, continue IVF, start trial of Megace for appetite. - May need to initiate calorie count, if no improvement. -OT/PT eval/tx, speech therapy. -fall precautions -add MVI, and encourage PO intake with ensure Hypothyroidism No HX of, likely subclinical - recheck TSH and free T4 Suspected JOSE CRUZ Creatinine 1.19. Only other creatinine in the system 0.72 03/31/16 Likely secondary to poor oral intake/dehydration. -UA negative - Patient with minimal p.o. intake, IVF for hydration, consult vascular access for PIV. -Refused labs, re draw in AM -Avoid nephrotoxic agents History of hypertension with hypotension, suspect secondary to hypovolemia secondary to poor oral intake -BP stable, intermittently elevated likely due to agitation. -encourage increase fluid intake -monitor BP Dyslipidemia -ASCVD risk 4.9%, no statin recommended at this moment -Dietary and lifestyle changes. DVT prophylaxis- subq heparin Code Status: full code Discussed Condition With: patient and nurse
[2018-02-18 11:48] LABS: Calcium 8.6 mg/dL (8.5-10.1); Potassium 3.8 meq/L (3.5-5.1)
--- NOTE | 2018-02-18 14:46 | ECG ---
Date Performed: 02/17/2018 Time Performed: 18:02:37 PTAGE: 62 years EKG: Normal Sinus rhythm baseline artifact makes this substandard for interpretation Since the PREVIOUS TRACING , no significant change noted PREVIOUS TRACIN04/15/2014 18.05 DOCTOR: Wilmer Benoit Interpretating Date/Time 02/18/2018 14:44:37
--- NOTE | 2018-02-18 14:50 | P.DIET ---
Nutritional Evaluation Type of nutrition evaluation: follow-up Nutrition consult regarding: Diet Evaluation Nutrition screening: [facility] Screening comments: 02/12/18 [facility] Poor PO Intake Subjective Oral Diet Tolerance Assessment Indicates: Edentulous Subjective Comments: Pt feeding herself lunch when visited. Nursing staff reports pt drinks all of the Enlive supplement. Request for the Enlive supplement to be removed from meal trays, when pt refuses meals, and to be given to pt at a later time. Objective - Diagnosis Psychosis NOS - Objective % IBW: 117 Body Weight Used for Calculations: Actual (63.5 kg) Energy Needs - Lower Range (kCal/kg): 25 Energy Needs - Upper Range (kCal/kg): 30 Lower Limit kCal/kg (kCals): 1,588 Upper Limit kCal/kg (kCals): 1,905 Lower Limit Protein Factor (Grams per Kg): 1.1 Upper Limit Protein Factor (Grams per Kg): 1.3 Lower Protein Needs (Protein): 70 Upper Protein Needs (Protein): 83 Dietitian Reviewed in Medical Record: Current diet, Curent medications, Intake & Output, Labs, Medical history Diet Order: Regular Oral Diet Intake Amount: Poor <50% Speech Therapy Recommendations: Yes (02/16/18 Pureed w/full feeding assist) Objective Comments: PMH: anxiety, C-Diff, GERD, HTN, AFib, Psychosis, Schizophrenia, Gallstones A1C 5.1 Meds include: Zyprexa, MultiViatmin, Megace started today 02/18/18-pt refused Feeding - Current PO Supplement Current Supplement: Ensure Enlive Current Frequency of Supplement: Three times a day Current kCals Provided by Supplement: 350 Current Protein Provided by Supplement: 20 Assessment Assessment: Pt continues at nutritional risk r/t poor po intake and need for diet modification. Pt is edentulous. Pureed diet per ST Recs. Continue Ensure Enlive TID. Rec save Ensure Enlive from meal trays for pt to have at a later time. Send Ensure pudding BID. Labs reviewed. Wt noted. Dietitian following. Recommendations: 1. Pureed diet per ST Recs 2. Continue Ensure Enlive TID 3. Save Ensure Enlive from meal trays for pt to have at a later time 4. Send Ensure pudding BID 5. Megace started 02/18/18 6. Dietitian following Dietitian to Monitor: Lab values, Supplement acceptance, Intake & Output, Diet tolerance, Weight change, PO Intake, Medical course
--- NOTE | 2018-02-18 16:08 | P.PNPSY ---
Subjective Remarks: Patient seen for follow-up, chart reviewed. Discussion with nursing staff reported that patient less echolalia and more spontaneous speech today. Patient was found in hospital chair and presented to mental health court but would not tolerate and requested to be taken back up to her room. Patient later seen in her room noted to be confused and continues to state that she is not passing markedly less now. Patient at times but has appropriate questions regarding her confusion was provided with reorientation patient continues to state "this is not right, I got to get out of here". Patient was visited by [facility] herbicide service sales representative for possible placement but was denied. Review of Systems All other systems reviewed negative except as stated in HPI Mental Status Examination Appearance: Disheveled (But clean) Consciousness: Alert Motor Activity: Other (In bed) Speech: Other (less echolalia) Language: Perseveration ("this is not right") Fund of Knowledge: Poor Attention and Concentration: Inadequate (Slightly improved) Mood: Anxious Affect: Anxious Thought Process & Associations: Disorganized, Other ([place]) Thought Content: Depersonalization ("I'm not Jelly') Hallucination Type: None Delusion Type: Other (unable to assess) Suicidal Ideation: No Suicidal Plan: No Suicidal Intention: No Homicidal Ideation: No Homicidal Plan: No Homicidal Intention: No Insight: Poor Judgment: Poor Assessment and Plan - Assessment (1) Unspecified psychosis Code(s): F29 - Unspecified psychosis not due to a substance or known physiological condition Status: Acute - Plan Plan: Patient still continues with episodes of confusion but less echolalia and had more moments of clarity which she was noted as appropriate question but then would revert back to continue patient. We will increase olanzapine to 10 mg p nightly.o. twice daily. Continue to monitor mood and behavior. Patient to continue one-to-one observation for safety. Continue to encourage patient to increase nutritional intake. Discharge planning in progress. Justification for Continued Inpatient Stay: at risk of further decompensation at lower level care.
[2018-02-18] MEDS ORDERED: Sodium Chloride 0.9% 2 ML Flush PRN IV.FLUSH (20:05)
[2018-02-18] MEDS: Sodium Chloride 0.9% 2 ML Flush BID IV.FLUSH SCH (20:08)
--- NOTE | 2018-02-19 08:13 | P.PNPSY ---
Subjective Remarks: Patient seen for follow-up, chart reviewed. Discussion with nursing staff reported that patient slept last night, did allow blood draw this morning. Patient was found lying hospital bed noted to be awake with poor eye contact continues to have echolalia but less intense now. Patient states reporting repeatedly "I want out". Patient was unable to answer questions directly at times when attempting to answer was incomprehensible S patient was mumbling most of the interview. Patient was able to recognize that sheet writer was present and trying to engage in interview today. Patient with no behavioral services, has a cooperative and allow blood draw this morning. Review of Systems All other systems reviewed negative except as stated in HPI Mental Status Examination Appearance: Disheveled (But clean) Consciousness: Alert Motor Activity: Other (In bed) Speech: Other (less echolalia) Language: Perseveration ("I want out") Fund of Knowledge: Poor Attention and Concentration: Inadequate (Slightly improved) Memory: Impaired Mood: Anxious Affect: Anxious (Lessening) Thought Process & Associations: Disorganized, Other ([place]) Thought Content: Depersonalization ("I'm not Jelly') Hallucination Type: None Delusion Type: Other (unable to assess) Suicidal Ideation: No Suicidal Plan: No Suicidal Intention: No Homicidal Ideation: No Homicidal Plan: No Homicidal Intention: No Insight: Poor Judgment: Poor Assessment and Plan - Assessment (1) Unspecified psychosis Code(s): F29 - Unspecified psychosis not due to a substance or known physiological condition Status: Acute - Plan Plan: Patient currently continues with disorientation and confusion but no longer yelling but continues with echolalia but less intense and less frequent now. Patient noted to be more cooperative with staff, allow blood draws this morning. Patient yesterday also was able to improve nutritional intake in the afternoon but this has been inconsistent. Patient continues require encouragement for nutritional intake and direction and assistance with ADLs. No aggressive behavior. Olanzapine dose recently increased yesterday, we will continue current dose and current medications. QTc interval from EKG on found within normal limits (432 ms). We will continue to monitor mood and behavior. Continue recommendations as per prior medical team, hospitalist input appreciated. Discharge planning in progress. Justification for Continued Inpatient Stay: At risk of further decompensation at lower level care.
[2018-02-19 08:33] LABS: Free T4 (Free Thyroxine) 0.89 ng/dL (0.76-1.46); Thyroid Stimulating Hormone 3.36 uIU/mL (0.358-3.740)
[2018-02-19] MEDS: Heparin - SQ 10,000 UNITS/ML Vial SQ SCH ×2 (09:41→21:58)
--- NOTE | 2018-02-19 09:42 | P.PNIM ---
Subjective Interval history: Follow-up HPI, hypertension, severe protein calorie malnutrition, and psychosis. Patient seen and examined sitting on her bed, with no verbal response. Patient does not her head no when asked with pain or shortness of breath. Or any discomfort. Patient encourage to increase p.o. intake and medication intake Nurse at the bedside, reported patient refused to take her medications. Physical Exam Vital signs: Vital Signs 02/18/18 18:03 Temperature 93.2 F L Pulse Rate 92 H Respiratory Rate 18 Blood Pressure 126/59 L Pulse Oximetry 95 Intake & Output 02/18/18 02/19/18 02/19/18 18:59 06:59 18:59 Intake Total 960 / 960 300 / 300 Balance 960 / 960 300 / 300 Weight 56.7 kg Intake: Oral 960 / 960 300 / 300 Other: # Voids 1 Narrative: GENERAL: Thin, frail looking, cachetic appearing female, in no acute distress SKIN: Warm and dry. bilateral upper extremities with multiple areas of ecchymosis HEAD: Atraumatic. Normocephalic. EYES: Pupils equal and round. No scleral icterus. No injection or drainage. ENT: No nasal bleeding or discharge. Mucous membranes pink and moist. NECK: Trachea midline. No JVD. CARDIOVASCULAR: Regular rate and rhythm. RESPIRATORY: No accessory muscle use. Clear to auscultation. Breath sounds equal bilaterally. GASTROINTESTINAL: Abdomen flat soft, non-tender, nondistended. Hepatic and splenic margins not palpable. MUSCULOSKELETAL: Extremities without clubbing, cyanosis, or edema. No obvious deformities. muscle wasting on lower extremities NEUROLOGICAL: Awake and alert, oriented X 0. No obvious cranial nerve deficits. Moving all w extremities. Normal speech. PSYCHIATRIC: flat mood and affect; insight and judgment poor with moderate confusion. Results - Labs CBC & Chem 7: 02/14/18 07:58 02/18/18 10:36 Laboratory Results - last 24 hr 02/18/18 02/19/18 10:36 07:34 Sodium 144 Potassium 3.8 Chloride 111 H Carbon Dioxide 25.0 Anion Gap 8 BUN 14 Creatinine 1.03 H Estimated GFR 54 L Random Glucose 74 Calcium 8.6 TSH 3.360 Free T4 0.89 Assessment and Plan - Assessment (1) Severe protein-calorie malnutrition Code(s): E43 - Unspecified severe protein-calorie malnutrition Status: Acute (2) HTN (hypertension) Code(s): I10 - Essential (primary) hypertension Status: Acute (3) JOSE CRUZ (acute kidney injury) Code(s): N17.9 - Acute kidney failure, unspecified Status: Acute (4) Psychoses Code(s): F29 - Unspecified psychosis not due to a substance or known physiological condition Status: Acute - Plan This is a 62-year-old female with a history of psychosis and admitted under Wagner act: Schizophrenia Acute Psychosis -Management per psychiatric team -Workup to rule out organic cause of patient's acute psychosis: UA negative, TSH mildly elevated, free T4 WNL, B12 WNL, RPR WNL, CXR negative, UDS not completed. So far negative. - Low grade temps, recheck UA Severe Protein calorie malnutrition -Insole And Outsole Splitter following, continue supplementation shakes. - Poor intake, continue IVF, start trial of Megace for appetite. - May need to initiate calorie count, if no improvement. -OT/PT eval/tx, speech therapy. -fall precautions -add MVI, and encourage PO intake with ensure Elevated TSH, no known HX of Hypothyroidism - likely subclinical - recheck TSH and free T4 improved 3.36/0.89 -continue to monitor Suspected JOSE CRUZ Creatinine 1.19. Only other creatinine in the system 0.72 03/31/16 Likely secondary to poor oral intake/dehydration. -UA negative - Patient with minimal p.o. intake, s/p IVF for hydration -Refused labs, re draw in AM -Avoid nephrotoxic agents -encourage increase fluid intake -monitor BMP, improving Creat 1.03 History of hypertension with hypotension, suspect secondary to hypovolemia secondary to poor oral intake -BP stable, intermittently elevated likely due to agitation. -encourage increase fluid intake -monitor BP, improving Dyslipidemia -ASCVD risk 4.9%, no statin recommended at this moment -Dietary and lifestyle changes. DVT prophylaxis- subq heparin Code Status: Full code Discussed Condition With: Patient and nurse
[2018-02-19] MEDS: Megestrol Acetate Liq 400 MG/10 ML UDC PO SCH (12:37)
[2018-02-19] MEDS: Sodium Chloride 0.9% 2 ML Flush BID IV.FLUSH SCH ×2 (12:38→21:59)
--- NOTE | 2018-02-20 09:55 | P.PNIM ---
Subjective Interval history: Follow-up HPI, hypertension, severe protein calorie malnutrition, and psychosis. Patient seen and examined laying in the bed, sitter at bedside. Patient screaming, making sense less noises. Patient looks comfortable in bed, no verbal response, no response to stimulus. Nurse at bedside reported patient pulled her IV and only get 24 hours of IV fluid. Sitter at bedside reported patient ate breakfast today and have drank about 600 mL of fluids including Ensure, juice and water. Discussed with nursing to monitor p.o. intake. Nurse also reported that patient is not taking her medication and has to give her psych meds through IM. Physical Exam Vital signs: Vital Signs 02/19/18 18:00 02/20/18 06:05 Temperature 98.5 F 97.6 F Pulse Rate 73 87 Respiratory Rate 17 18 Blood Pressure 108/64 150/110 H Pulse Oximetry 95 97 Intake & Output 02/19/18 02/20/18 02/20/18 18:59 06:59 18:59 Intake Total 480 / 480 0 / 0 1200 / 1200 Balance 480 / 480 0 / 0 1200 / 1200 Intake: Oral 480 / 480 0 / 0 1200 / 1200 Other: # Voids 1 # Urine Diapers 3 Narrative: GENERAL: Thin, frail looking, cachetic appearing female, in no acute distress SKIN: Warm and dry. bilateral upper extremities with multiple areas of ecchymosis HEAD: Atraumatic. Normocephalic. EYES: Pupils equal and round. No scleral icterus. No injection or drainage. ENT: No nasal bleeding or discharge. Mucous membranes pink and moist. NECK: Trachea midline. No JVD. CARDIOVASCULAR: Regular rate and rhythm. RESPIRATORY: No accessory muscle use. Clear to auscultation. Breath sounds equal bilaterally. GASTROINTESTINAL: Abdomen flat soft, non-tender, nondistended. Hepatic and splenic margins not palpable. MUSCULOSKELETAL: Extremities without clubbing, cyanosis, or edema. No obvious deformities. muscle wasting on lower extremities. Bilateral foot drop NEUROLOGICAL: Awake and alert, oriented X 0. No obvious cranial nerve deficits. Moving all 4 extremities. Normal speech. PSYCHIATRIC: flat mood and affect; insight and judgment poor with moderate confusion and disorientation Results - Labs CBC & Chem 7: 02/14/18 07:58 02/18/18 10:36 Assessment and Plan - Assessment (1) Severe protein-calorie malnutrition Code(s): E43 - Unspecified severe protein-calorie malnutrition Status: Acute (2) HTN (hypertension) Code(s): I10 - Essential (primary) hypertension Status: Acute (3) JOSE CRUZ (acute kidney injury) Code(s): N17.9 - Acute kidney failure, unspecified Status: Acute (4) Psychoses Code(s): F29 - Unspecified psychosis not due to a substance or known physiological condition Status: Acute - Plan This is a 62-year-old female with a history of psychosis and admitted under Wagner act: Schizophrenia Acute Psychosis -Management per psychiatric team -Workup to rule out organic cause of patient's acute psychosis: UA negative, TSH mildly elevated, free T4 WNL, B12 WNL, RPR WNL, CXR negative, UDS not completed. So far negative. - Low grade temps, recheck UA Severe Protein calorie malnutrition Failure to Thrive -Pulp Drier following, continue supplementation shakes. - Poor intake, continue IVF, continue Megace for appetite. - May need to initiate calorie count, if no improvement. -OT/PT eval/tx, speech therapy. -fall precautions -add MVI, and encourage PO intake with ensure. - If unable to take diet and fluids, patient may need to be restrained to have IV fluid Elevated TSH, no known HX of Hypothyroidism - likely subclinical - recheck TSH and free T4 improved 3.36/0.89 -continue to monitor Suspected JOSE CRUZ Creatinine 1.19. Only other creatinine in the system 0.72 03/31/16 Likely secondary to poor oral intake/dehydration. -UA negative - Patient with minimal p.o. intake, s/p IVF for hydration -Avoid nephrotoxic agents -encourage increase fluid intake -monitor BMP, improving Creat 1.03 History of hypertension with hypotension, suspect secondary to hypovolemia secondary to poor oral intake -BP stable, intermittently elevated likely due to agitation. -encourage increase fluid intake -monitor BP, improving Dyslipidemia -ASCVD risk 4.9%, no statin recommended at this moment -Dietary and lifestyle changes. DVT prophylaxis- subq heparin
[2018-02-20] MEDS: Megestrol Acetate Liq 400 MG/10 ML UDC PO SCH (10:42)
[2018-02-20] MEDS: Heparin - SQ 10,000 UNITS/ML Vial SQ SCH ×2 (10:42→21:01)
[2018-02-20] MEDS: Sodium Chloride 0.9% 2 ML Flush BID IV.FLUSH SCH ×2 (10:44→21:11)
--- NOTE | 2018-02-20 21:11 | P.PNPSY ---
Subjective Remarks: Patient seen for follow-up, chart reviewed. Discussion with nursing staff reported that patient drinking Ensure now, but on IV continue and at times, but also at times speech is clear no behavioral disturbances. Lying in hospital bed with occasional eye contact, limited engagement in interview today. Patient to ramble at times but as per her report without clear speech and appropriate intervals. Patient with increase in supplements continues to require improvement in nutritional intake through diet. Patient continues with perseveration of certain statements such as "oh my God, I am in trouble". Review of Systems All other systems reviewed negative except as stated in HPI Mental Status Examination Appearance: Appropriate Consciousness: Alert Motor Activity: Other (In bed) Speech: Other (less echolalia) Language: Perseveration ("Oh my God, I'm in trouble") Fund of Knowledge: Poor Attention and Concentration: Inadequate (Slightly improved) Memory: Impaired Mood: Anxious Affect: Anxious (Lessening) Thought Process & Associations: Disorganized, Other ([place]) Thought Content: Depersonalization (lessening) Hallucination Type: None Delusion Type: Other (unable to assess) Suicidal Ideation: No Suicidal Plan: No Suicidal Intention: No Homicidal Ideation: No Homicidal Plan: No Homicidal Intention: No Insight: Poor Judgment: Poor Assessment and Plan - Assessment (1) Unspecified psychosis Code(s): F29 - Unspecified psychosis not due to a substance or known physiological condition Status: Acute - Plan Plan: Patient at this time continues with occasional echolalia repeating the same statements but has more episodes of clear speech with decreased behavioral disturbances, yelling but does talk a lot at times. Patient more redirectable now is drinking supplements continue to report initial intake E. Continue current treatment. Continue to monitor with behavior. Continue to encourage patient to increase nutritional intake. To encourage patient to start physical therapy recommendations and ambulation. Justification for Continued Inpatient Stay: At risk of further decompensation at lower level care.
[2018-02-21] MEDS: Heparin - SQ 10,000 UNITS/ML Vial SQ SCH ×2 (08:58→21:22)
[2018-02-21] MEDS: Megestrol Acetate Liq 400 MG/10 ML UDC PO SCH (09:13)
--- NOTE | 2018-02-21 10:05 | P.PNIM ---
Subjective Interval history: Follow-up severe protein calorie malnutrition, hypertension, and psychosis. Patient seen and examined awake, lying in bed, sitter at the bedside. Patient making continuous senseless voice noises/sounds. Some words "Oh my God" repeatedly. Patient does not answer to verbal questions appropriately even with names and does not follow directions Patient lying straight down in bed. Nurse reported patient not taking her PO medications. However reported patient have adequate PO intake, with diet, food and drinks. Physical Exam Vital signs: Intake & Output 02/20/18 02/21/18 02/21/18 18:59 06:59 18:59 Intake Total 2600 / 2600 60 / 60 Balance 2600 / 2600 60 / 60 Weight 49.9 kg Intake: Oral 2600 / 2600 60 / 60 Other: # Voids 1 Date of Last Bowel Movement 02/15/18 Narrative: GENERAL: Thin, frail looking, cachetic appearing female, in no acute distress SKIN: Warm and dry. bilateral upper extremities with multiple areas of ecchymosis HEAD: Atraumatic. Normocephalic. EYES: Pupils equal and round. No scleral icterus. No injection or drainage. ENT: No nasal bleeding or discharge. Mucous membranes pink and moist. NECK: Trachea midline. No JVD. CARDIOVASCULAR: Regular rate and rhythm. RESPIRATORY: No accessory muscle use. Clear to auscultation. Breath sounds equal bilaterally. GASTROINTESTINAL: Abdomen flat soft, non-tender, nondistended. Hepatic and splenic margins not palpable. MUSCULOSKELETAL: Extremities without clubbing, cyanosis, or edema. No obvious deformities. muscle wasting on lower extremities. Bilateral foot drop Patient lying straight, with arms stiff and hands gripped tight, with bilateral leg and foot straight down tight. NEUROLOGICAL: Awake and alert, oriented X 0. No obvious cranial nerve deficits. Moving all 4 extremities. Normal speech. PSYCHIATRIC: flat mood and affect; insight and judgment poor with moderate confusion and disorientation Results - Labs CBC & Chem 7: 02/14/18 07:58 02/18/18 10:36 Assessment and Plan - Assessment (1) Severe protein-calorie malnutrition Code(s): E43 - Unspecified severe protein-calorie malnutrition Status: Acute (2) HTN (hypertension) Code(s): I10 - Essential (primary) hypertension Status: Acute (3) JOSE CRUZ (acute kidney injury) Code(s): N17.9 - Acute kidney failure, unspecified Status: Acute (4) Psychoses Code(s): F29 - Unspecified psychosis not due to a substance or known physiological condition Status: Acute - Plan This is a 62-year-old female with a history of psychosis and admitted under Wagner act: Schizophrenia Acute Psychosis -Management per psychiatric team -Workup to rule out organic cause of patient's acute psychosis: UA negative, TSH mildly elevated, free T4 WNL, B12 WNL, RPR WNL, CXR negative, UDS not completed. So far negative. - Low grade temps, recheck UA Severe Protein calorie malnutrition Failure to Thrive -Rope Laying Machine Operator following, continue supplementation shakes. - Poor intake, continue IVF, continue Megace for appetite. - May need to initiate calorie count, if no improvement. -OT/PT eval/tx, speech therapy. -fall precautions -add MVI, and encourage PO intake with ensure. - If unable to take diet and fluids, patient may need to be restrained to have IV fluid Elevated TSH, no known HX of Hypothyroidism - likely subclinical - recheck TSH and free T4 improved 3.36/0.89 -continue to monitor Suspected JOSE CRUZ Creatinine 1.19. Only other creatinine in the system 0.72 03/31/16 Likely secondary to poor oral intake/dehydration. -UA negative - Patient with minimal p.o. intake, s/p IVF for hydration -Avoid nephrotoxic agents -encourage increase fluid intake -monitor BMP, improving Creat 1.03 History of hypertension with hypotension, suspect secondary to hypovolemia secondary to poor oral intake -BP stable, intermittently elevated likely due to agitation. -encourage increase fluid intake -monitor BP, improving Dyslipidemia -ASCVD risk 4.9%, no statin recommended at this moment -Dietary and lifestyle changes. DVT prophylaxis: subq heparin Code Status: full code Discussed Condition With: sitter and nurse
[2018-02-21 10:16] LABS: Eos # (Auto) 0.1 th/mm3 (0.0-0.4); Eos % (Auto) 1.5 % (0.0-4.0); Hematocrit 33.5 % (35.0-46.0); Hemoglobin 11.1 gm/dL (11.6-15.3); Lymph % (Auto) 22.8 % (9.0-44.0); Mean Corpuscular HGB Conc 33.3 % (32.0-36.0); Mean Corpuscular Hemoglobin 27.7 pg (27.0-34.0); Mean Corpuscular Volume 83.4 fL (80.0-100.0); Mean Platelet Volume 8.9 fL (7.0-11.0); Mono # (Auto) 0.3 th/mm3 (0.0-0.9); Mono % (Auto) 7.1 % (0.0-8.0); Neut # (Auto) 2.9 th/mm3 (1.8-7.7); Neut % (Auto) 67.6 % (16.0-70.0); Platelet Count 226 th/mm3 (150-450); Red Blood Count 4.02 mil/mm3 (4.00-5.30); White Blood Count 4.4 th/mm3 (4.0-11.0)
[2018-02-21 10:35] LABS: Alanine Aminotransferase 13 U/L (10-53); Albumin 3.5 g/dL (3.4-5.0); Anion Gap 8 meq/L (5-15); Aspartate Aminotransferase 17 U/L (15-37); Blood Urea Nitrogen 21 mg/dL (7-18); Calcium 8.7 mg/dL (8.5-10.1); Carbon Dioxide 23.9 meq/L (21.0-32.0); Chloride 112 meq/L (98-107); Glomerular Filtration Rate 54 mL/min (>89); Glucose,Random 104 mg/dL (74-106); Potassium 3.9 meq/L (3.5-5.1); Sodium 144 meq/L (136-145)
[2018-02-21 10:37] LABS: Alkaline Phosphatase 97 U/L (45-117); Total Protein 7.4 g/dL (6.4-8.2)
[2018-02-21] MEDS: Sodium Chloride 0.9% 2 ML Flush BID IV.FLUSH SCH ×2 (12:28→21:23)
--- NOTE | 2018-02-21 12:37 | P.PNPSY ---
Subjective Remarks: Patient seen and examined with nurse in weekend coverage for Dr. Cedillo. Chart reviewed. Case discussed with nursing staff who reports patient verbalizes repetitive speech. She did become adherent with her oral Zyprexa yesterday into today. One-to-one sitter is at the bedside. On my exam, patient verbalizes very little. What speech she does produce is word salad. She is fairly negativistic, for example resisting my efforts to examine her arm for EPS. No evident physical distress. Intake and Output 02/20/18 02/21/18 02/21/18 22:59 06:59 14:59 Intake Total 1400 / 1400 60 / 60 Balance 1400 / 1400 60 / 60 Intake: Oral 1400 / 1400 60 / 60 Other: # Voids 1 Weight 49.9 kg 52.8 kg Patient Weight 02/22/18 06:59 Weight 52.8 kg Laboratory Results - last 24 hr 02/21/18 02/21/18 09:51 09:57 WBC 4.4 RBC 4.02 Hgb 11.1 L Hct 33.5 L MCV 83.4 MCH 27.7 MCHC 33.3 RDW 17.0 Plt Count 226 MPV 8.9 Neut % (Auto) 67.6 Lymph % (Auto) 22.8 [place] % (Auto) 7.1 Eos % (Auto) 1.5 Baso % (Auto) 1.0 Neut # (Auto) 2.9 Lymph # (Auto) 1.0 [place] # (Auto) 0.3 Eos # (Auto) 0.1 Baso # (Auto) 0.0 WBC Differential . Differential Comment Auto diff final Sodium 144 Potassium 3.9 Chloride 112 H Carbon Dioxide 23.9 Anion Gap 8 BUN 21 H Creatinine 1.03 H Estimated GFR 54 L Random Glucose 104 Calcium 8.7 Total Bilirubin 0.4 AST 17 ALT 13 Alkaline Phosphatase 97 Total Protein 7.4 Albumin 3.5 Labs reviewed. Review of Systems unobtainable due to mental condition Mental Status Examination Appearance: Appropriate Consciousness: Alert Motor Activity: Other (No motor abnormalities noted.) Speech: Incoherent Language: Word salad Fund of Knowledge: Poor Attention and Concentration: Inadequate (Slightly improved) Memory: Impaired Mood: Anxious Affect: Anxious Thought Process & Associations: Disorganized Thought Content: Other (Difficult to assess due to thought disorganization) Suicidal Ideation: No (No SI voiced) Homicidal Ideation: No (No HI voiced) Insight: Poor Judgment: Poor Assessment and Plan - Assessment (1) Unspecified psychosis Code(s): F29 - Unspecified psychosis not due to a substance or known physiological condition Status: Acute - Plan Plan: Continue Zyprexa as ordered. Could consider trial of Ativan IM/IV for possible catatonia; will defer to attending psychiatrist. Continue one-to-one sitter. Hospitalist input appreciated. Continue to monitor on the medical psychiatric unit. Continue other medications and care as ordered. Justification for Continued Inpatient Stay: Risk for decompensation and less restrictive environment. Discharge Planning: Per Dr. Cedillo
[2018-02-22] MEDS: Megestrol Acetate Liq 400 MG/10 ML UDC PO SCH (08:30)
--- NOTE | 2018-02-22 09:40 | P.PNIM ---
Subjective Interval history: Follow-up severe protein calorie malnutrition, hypertension, and psychosis. PA patient seen and examined sitting on her bed, nurse at bedside. Patient repeatedly making noises with words without sense. However with some signs of a constant conversation with nurse but repeating sentences. Patient saying "my house has roaches my house has Roaches" repeatedly and later she is saying "I love my house, I love my house" repeatedly. Patient seems comfortable and not in any acute distress. Nurse reported patient eating well and drinking well. Patient ate most of her breakfast and drink all her milk and Ensure. Discussed encourage increase fluid And p.o./diet intake Physical Exam Vital signs: Vital Signs 02/22/18 05:49 Temperature 98.4 F Pulse Rate 78 Respiratory Rate 16 Blood Pressure 133/78 Pulse Oximetry 97 Intake & Output 02/21/18 02/22/18 02/22/18 18:59 06:59 18:59 Intake Total 420 / 420 120 / 120 Balance 420 / 420 120 / 120 Weight 52.8 kg Intake: Oral 420 / 420 120 / 120 Other: # Voids 2 Date of Last Bowel Movement 02/15/18 Narrative: GENERAL: Thin, frail looking, cachetic appearing female, in no acute distress SKIN: Warm and dry. bilateral upper extremities with multiple areas of ecchymosis HEAD: Atraumatic. Normocephalic. EYES: Pupils equal and round. No scleral icterus. No injection or drainage. ENT: No nasal bleeding or discharge. Mucous membranes pink and moist. NECK: Trachea midline. No JVD. CARDIOVASCULAR: Regular rate and rhythm. RESPIRATORY: No accessory muscle use. Clear to auscultation. Breath sounds equal bilaterally. GASTROINTESTINAL: Abdomen flat soft, non-tender, nondistended. Hepatic and splenic margins not palpable. MUSCULOSKELETAL: Extremities without clubbing, cyanosis, or edema. No obvious deformities. muscle wasting on lower extremities. Bilateral foot drop Patient lying straight, with arms stiff and hands gripped tight, with bilateral leg and foot straight down tight. NEUROLOGICAL: Awake and alert, oriented X 0. No obvious cranial nerve deficits. Moving all 4 extremities. echolalia speech PSYCHIATRIC: flat mood and affect; insight and judgment poor with moderate confusion and disorientation Results - Labs CBC & Chem 7: 02/21/18 09:51 02/21/18 09:57 Laboratory Results - last 24 hr 02/21/18 02/21/18 09:51 09:57 WBC 4.4 RBC 4.02 Hgb 11.1 L Hct 33.5 L MCV 83.4 MCH 27.7 MCHC 33.3 RDW 17.0 Plt Count 226 MPV 8.9 Neut % (Auto) 67.6 Lymph % (Auto) 22.8 [place] % (Auto) 7.1 Eos % (Auto) 1.5 Baso % (Auto) 1.0 Neut # (Auto) 2.9 Lymph # (Auto) 1.0 [place] # (Auto) 0.3 Eos # (Auto) 0.1 Baso # (Auto) 0.0 WBC Differential . Differential Comment Auto diff final Sodium 144 Potassium 3.9 Chloride 112 H Carbon Dioxide 23.9 Anion Gap 8 BUN 21 H Creatinine 1.03 H Estimated GFR 54 L Random Glucose 104 Calcium 8.7 Total Bilirubin 0.4 AST 17 ALT 13 Alkaline Phosphatase 97 Total Protein 7.4 Albumin 3.5 Assessment and Plan - Assessment (1) Severe protein-calorie malnutrition Code(s): E43 - Unspecified severe protein-calorie malnutrition Status: Acute (2) HTN (hypertension) Code(s): I10 - Essential (primary) hypertension Status: Acute (3) JOSE CRUZ (acute kidney injury) Code(s): N17.9 - Acute kidney failure, unspecified Status: Acute (4) Psychoses Code(s): F29 - Unspecified psychosis not due to a substance or known physiological condition Status: Acute - Plan This is a 62-year-old female with a history of psychosis and admitted under Wagner act: Schizophrenia Acute Psychosis -Workup to rule out organic cause of patient's acute psychosis: UA negative, TSH mildly elevated, free T4 WNL, B12 WNL, RPR WNL, CXR negative, UDS not completed. So far negative. - recheck UAnegative -Management per psychiatric team Severe Protein calorie malnutrition Failure to Thrive Weight loss -Cradle Placer following, continue supplementation shakes. - Poor intake, continue IVF, continue Megace for appetite. -OT/PT eval/tx, speech therapy. -fall precautions -add MVI, and encourage PO intake with ensure. - If unable to take diet and fluids, patient may need to be restrained to have IV fluid Albumin level 3.5, current weight 52.8 kg, weight on admission 63.5 kg -monitor weight, monitor albumin -Reconsult dietitian for calorie count Elevated TSH, no known HX of Hypothyroidism - likely subclinical - recheck TSH and free T4 improved 3.36/0.89 -continue to monitor Suspected JOSE CRUZ Creatinine 1.19. Only other creatinine in the system 0.72 03/31/16 Likely secondary to poor oral intake/dehydration. -UA negative - Patient with minimal p.o. intake, s/p IVF for hydration -Avoid nephrotoxic agents -encourage increase fluid intake -Stable, monitor BMP, improving Creat 1.03 History of hypertension Hx of Dyslipidemia with hypotension, suspect secondary to hypovolemia secondary to poor oral intake -BP stable, intermittently elevated likely due to agitation. -encourage increase fluid intake -monitor BP, improving -ASCVD risk 4.9%, no statin recommended at this moment -Dietary and lifestyle changes. DVT prophylaxis: subq heparin Code Status: Full code Discussed Condition With: Patient and nurse
[2018-02-22] MEDS: Sodium Chloride 0.9% 2 ML Flush BID IV.FLUSH SCH ×2 (10:23→21:38)
[2018-02-22] MEDS: Heparin - SQ 10,000 UNITS/ML Vial SQ SCH ×2 (12:34→21:38)
--- NOTE | 2018-02-22 13:05 | P.PNPSY ---
Subjective Remarks: Patient seen and examined. Chart reviewed. Case discussed with nursing staff. Sitter is at the bedside assisting the patient with eating her lunch. On my examination today, the patient is sitting up in bed. She is echolalic. She repeats "I got out. I got out. I got out." She answers in this fashion to any question that I posed to her. No evident medication side effects. No evident physical distress. Vital Signs Temp Pulse Resp BP Pulse Ox 02/22/18 05:49 98.4 F 78 16 133/78 97 Intake and Output 02/21/18 02/22/18 02/22/18 22:59 06:59 14:59 Intake Total 120 / 120 Balance 120 / 120 Intake: Oral 120 / 120 Other: Date of Last Bowel Movement 02/15/18 Labs reviewed. No new labs. Review of Systems unobtainable due to mental condition Mental Status Examination Appearance: Appropriate Consciousness: Alert Motor Activity: Other (No motoric abnormalities noted) Speech: Rapid Language: Other (Echolalia) Fund of Knowledge: Poor Attention and Concentration: Inadequate (Slightly improved) Memory: Impaired Mood: Anxious Affect: Anxious Thought Process & Associations: Disorganized Thought Content: Other (Difficult to assess due to thought disorganization) Hallucination Type: None Delusion Type: Other (unable to assess) Suicidal Ideation: No (No SI voiced) Homicidal Ideation: No (No HI voiced) Insight: Poor Judgment: Poor Assessment and Plan - Assessment (1) Unspecified psychosis Code(s): F29 - Unspecified psychosis not due to a substance or known physiological condition Status: Acute - Plan Plan: As noted previously, might consider scheduled parenteral Ativan trial for possible catatonia if this has not already been tried. I will defer to attending psychiatrist. Continue Zyprexa as ordered. Continue sitter. Continue to monitor on the medical psychiatric unit. Continue other medications and care as ordered. Justification for Continued Inpatient Stay: Risk for decompensation and less restrictive environment. Impairment in reality construction. Discharge Planning: Per Dr. Cedillo
[2018-02-23] MEDS: Sodium Chloride 0.9% 2 ML Flush BID IV.FLUSH SCH ×2 (08:06→20:56)
--- NOTE | 2018-02-23 08:11 | P.PNPSY ---
Subjective Remarks: Patient seen for follow-up, chart reviewed. Discussion with nursing staff reported that patient is drinking Ensure. Lying in hospital bed with occasional eye contact, limited engagement in interview today. Patient to ramble at times but as per her report without clear speech and appropriate intervals. She ate about half of her breakfast and when asked about it, became quiet. Patient continuously repeats "oh my God" mixed in with unintelligible word salad. Review of Systems All other systems reviewed negative except as stated in HPI Mental Status Examination Appearance: Appropriate Consciousness: Alert Motor Activity: Other (No motoric abnormalities noted) Speech: Rapid, Incoherent, Speech impediment Language: Word salad, Other (Echolalia) Fund of Knowledge: Poor Attention and Concentration: Inadequate (Slightly improved) Memory: Impaired Mood: Anxious Affect: Anxious Thought Process & Associations: Disorganized Thought Content: Other (Difficult to assess due to thought disorganization) Hallucination Type: None Delusion Type: Other (unable to assess) Suicidal Ideation: No (No SI voiced) Suicidal Plan: No Suicidal Intention: No Homicidal Ideation: No (No HI voiced) Homicidal Plan: No Homicidal Intention: No Insight: Poor Judgment: Poor Assessment and Plan - Plan Plan: As noted previously, might consider scheduled parenteral Ativan trial for possible catatonia if this has not already been tried. I will defer to attending psychiatrist. Continue Zyprexa as ordered. Continue sitter. Continue to monitor on the medical psychiatric unit. Continue other medications and care as ordered. Discharge Planning: Last week, patient was seen by a representation from an assisted living facility in [place], but ultimately the transfer was declined. Social work still looking for long-term placement options.
[2018-02-23] MEDS: Heparin - SQ 10,000 UNITS/ML Vial SQ SCH ×2 (08:26→20:47)
[2018-02-23] MEDS: Megestrol Acetate Liq 400 MG/10 ML UDC PO SCH (08:26)
--- NOTE | 2018-02-23 09:28 | P.PNIM ---
Subjective Interval history: Follow-up severe protein calorie malnutrition, hypertension, and psychosis. Patient seen and examined sitting on her bed little calmer today with less screaming. Patient more responsive with conversation and with reality. Patient stated "oH No, Oh No" when touched or "Oh my God, Oh my God " repeatedly , but when assured that she will be fine, patient stopped. Patient seems comfortable in bed without any signs of distress. Nurse reported no acute concerns overnight. Reported that patient is eating his breakfast and drinking well. Physical Exam Vital signs: Vital Signs 02/22/18 18:37 02/22/18 20:00 02/23/18 06:00 Temperature 98.6 F 98.9 F Pulse Rate 81 98 H Respiratory Rate 20 18 16 Blood Pressure 155/81 H 126/67 Pulse Oximetry 92 L 98 Intake & Output 02/22/18 02/23/18 02/23/18 18:59 06:59 18:59 Intake Total 720 / 720 1010 / 1010 480 / 480 Balance 720 / 720 1010 / 1010 480 / 480 Weight 54.6 kg Intake: Oral 720 / 720 960 / 960 480 / 480 Oral Supplement 50 / 50 Other: # Voids 2 2 Date of Last Bowel Movement 02/15/18 02/15/18 Narrative: GENERAL: Thin, frail looking, cachetic appearing female, in no acute distress SKIN: Warm and dry. bilateral upper extremities with multiple areas of ecchymosis HEAD: Atraumatic. Normocephalic. EYES: Pupils equal and round. No scleral icterus. No injection or drainage. ENT: No nasal bleeding or discharge. Mucous membranes pink and moist. NECK: Trachea midline. No JVD. CARDIOVASCULAR: Regular rate and rhythm. RESPIRATORY: No accessory muscle use. Clear to auscultation. Breath sounds equal bilaterally. GASTROINTESTINAL: Abdomen flat soft, non-tender, nondistended. Hepatic and splenic margins not palpable. MUSCULOSKELETAL: Extremities without clubbing, cyanosis, or edema. No obvious deformities. muscle wasting on lower extremities. Bilateral foot drop Patient lying straight, with arms less stiff and hands gripped tight, with bilateral leg and foot straight down tight. NEUROLOGICAL: Awake and alert, oriented X 0. No obvious cranial nerve deficits. Moving all 4 extremities. echolalia speech PSYCHIATRIC: flat mood and affect; insight and judgment poor with moderate confusion and disorientation Results - Labs CBC & Chem 7: 02/21/18 09:51 02/21/18 09:57 Assessment and Plan - Assessment (1) Severe protein-calorie malnutrition Code(s): E43 - Unspecified severe protein-calorie malnutrition Status: Acute (2) HTN (hypertension) Code(s): I10 - Essential (primary) hypertension Status: Acute (3) JOSE CRUZ (acute kidney injury) Code(s): N17.9 - Acute kidney failure, unspecified Status: Acute (4) Psychoses Code(s): F29 - Unspecified psychosis not due to a substance or known physiological condition Status: Acute - Plan This is a 62-year-old female with a history of psychosis and admitted under Wagner act: Schizophrenia Acute Psychosis -Workup to rule out organic cause of patient's acute psychosis: UA negative, TSH mildly elevated, free T4 WNL, B12 WNL, RPR WNL, CXR negative, UDS not completed. So far negative. - recheck UAnegative -Management per psychiatric team Severe Protein calorie malnutrition Failure to Thrive Weight loss -Benefits Consultant following, continue supplementation shakes. - continue Megace for appetite. -OT/PT eval/tx, speech therapy. -fall precautions -add MVI, and encourage PO intake with ensure. - If unable to take diet and fluids, patient may need to be restrained to have IV fluid Albumin level 3.5, current weight 52.8 kg, weight on admission 63.5 kg -monitor weight, monitor albumin -Reconsult dietitian for calorie count -patient tolerating PO diet and fluid with assistance Elevated TSH, no known HX of Hypothyroidism - likely subclinical - recheck TSH and free T4 improved 3.36/0.89 -continue to monitor Suspected JOSE CRUZ Creatinine 1.19. Only other creatinine in the system 0.72 03/31/16 Likely secondary to poor oral intake/dehydration. -UA negative - Patient with minimal p.o. intake, s/p IVF for hydration -Avoid nephrotoxic agents -encourage increase fluid intake -Stable, monitor BMP, improving Creat 1.03 History of hypertension Hx of Dyslipidemia with hypotension, suspect secondary to hypovolemia secondary to poor oral intake -BP stable, intermittently elevated likely due to agitation. -encourage increase fluid intake -monitor BP, improving -ASCVD risk 4.9%, no statin recommended at this moment -Dietary and lifestyle changes. DVT prophylaxis: subq heparin Code Status: full code Discussed Condition With: patient and nurse Dr. Cedillo
--- NOTE | 2018-02-23 11:51 | P.TTN ---
- Patient Problems Problems: 1. Discharge planning 2. Medication compliance 3. Knowledge deficit 4. Lack of coping skills - Progress Toward Goals Provider Present: Dr. Erwin Cedillo Provider Input: 02/23/2018; per doctor patient remain 1:1, medication compliant , no behavioral at this time. 02/16/2018; per doctor patient has unpredictable moods, medication is about normal range, no adjustments at this time. Nurse(s) Present: RN Nurse Input: 02/23/2018; patient is compliant with treatment, still confused with disorganized behavior/thoughts, patient require assistance with basic needs including feeding and ADL's. Patient is loud, requirs 1:1, and rediction with behavior; assist with ADL's, and meals Psychiatric Counselors Present: Taryn Wiggins [facility] Psychiatric Therapist Input: 02/23/2018; according to Gadiel with [facility], they will have to table accepting patient until she is off restriction with chair with tray. 02/16/2018; counselor have faxed level 1 and [phone] to [facility], will follow-up with facility for placement Group Spec/RT/OT/LOCKE Present: Atul Justin, OT Group Spec/RT/OT/LOCKE Input: 02/23/2018; per OT patient is unable to participate with activities. 02/16/2018; per OT patient is unable to participate with activities at this time - Documentation Teaching Recipient: Patient
--- NOTE | 2018-02-23 16:14 | P.PNPSY ---
Subjective Remarks: Patient seen for follow up; chart reviewed. Discussion with nursing staff reported that patient took her medications with food, continue to be disorganized, physical therapy K was able to have patient stand with limited ambulation, ate breakfast. Patient was found lying in hospital bed noted to be with continued disorganization and very concrete responses mostly with less echolalia this morning. Patient continues with poor eye contact but occasionally would look at business writer. Patient continues to appear to be confused unaware of where she has been stating that "this is not right" at times. Review of Systems All other systems reviewed negative except as stated in HPI Mental Status Examination Appearance: Appropriate Consciousness: Alert Motor Activity: Other (No motoric abnormalities noted) Speech: Rapid, Incoherent, Speech impediment Language: Word salad, Other (Echolalia) Fund of Knowledge: Poor Attention and Concentration: Inadequate (Slightly improved) Memory: Impaired Mood: Anxious Affect: Anxious Thought Process & Associations: Disorganized Thought Content: Other (Difficult to assess due to thought disorganization) Hallucination Type: None Delusion Type: Other (unable to assess) Suicidal Ideation: No (No SI voiced) Suicidal Plan: No Suicidal Intention: No Homicidal Ideation: No (No HI voiced) Homicidal Plan: No Homicidal Intention: No Insight: Poor Judgment: Poor Assessment and Plan - Assessment (1) Unspecified psychosis Code(s): F29 - Unspecified psychosis not due to a substance or known physiological condition Status: Acute - Plan Plan: Patient at this time continues with disorientation and confusion along with poor ability to care for self as patient requires assistance with ADLs and encouragement for the same. Patient appears to have less episodes of screaming and more frequent episodes of lucid moments but in general continued with confusion and disorganization. We will continue current treatment. Continue to monitor with behavior. Discharge planning in progress. Justification for Continued Inpatient Stay: At risk of further decompensation at lower level care.
--- NOTE | 2018-02-24 09:03 | P.PNIM ---
Subjective Interval history: Follow-up severe protein calorie malnutrition, hypertension, and psychosis. Pt seen and examined, sitting in the bed, sitter at bedside Patient awake and alert with no appropriate response, no eye contact. Patient have few verbal response response stated " Im not good", and making repeated moaning sound. Nurse denies any acute concern overnight Physical Exam Vital signs: Intake & Output 02/23/18 02/24/18 02/24/18 18:59 06:59 18:59 Intake Total 480 / 480 0 / 0 Balance 480 / 480 0 / 0 Intake: Oral 480 / 480 0 / 0 Oral Supplement 0 / 0 Other: # Voids 3 Narrative: GENERAL: Thin, frail looking, cachetic appearing female, in no acute distress SKIN: Warm and dry. bilateral upper extremities with multiple areas of ecchymosis HEAD: Atraumatic. Normocephalic. EYES: Pupils equal and round. No scleral icterus. No injection or drainage. ENT: No nasal bleeding or discharge. Mucous membranes pink and moist. NECK: Trachea midline. No JVD. CARDIOVASCULAR: Regular rate and rhythm. RESPIRATORY: No accessory muscle use. Clear to auscultation. Breath sounds equal bilaterally. GASTROINTESTINAL: Abdomen flat soft, non-tender, nondistended. Hepatic and splenic margins not palpable. MUSCULOSKELETAL: Extremities without clubbing, cyanosis, or edema. No obvious deformities. muscle wasting on lower extremities. Bilateral foot drop Patient lying straight, with arms less stiff and hands gripped tight, with bilateral leg and foot straight down tight. NEUROLOGICAL: Awake and alert, oriented X 0. No obvious cranial nerve deficits. Moving all 4 extremities. echolalia speech PSYCHIATRIC: flat mood and affect; insight and judgment poor with moderate confusion and disorientation Results - Labs CBC & Chem 7: 02/21/18 09:51 02/21/18 09:57 Assessment and Plan - Assessment (1) Severe protein-calorie malnutrition Code(s): E43 - Unspecified severe protein-calorie malnutrition Status: Acute (2) HTN (hypertension) Code(s): I10 - Essential (primary) hypertension Status: Acute (3) JOSE CRUZ (acute kidney injury) Code(s): N17.9 - Acute kidney failure, unspecified Status: Acute (4) Psychoses Code(s): F29 - Unspecified psychosis not due to a substance or known physiological condition Status: Acute - Plan This is a 62-year-old female with a history of psychosis and admitted under Wagner act: Schizophrenia Acute Psychosis Altered mental Status -Workup to rule out organic cause of patient's acute psychosis: UA negative, TSH mildly elevated, free T4 WNL, B12 WNL, RPR WNL, CXR negative, UDS not completed. So far negative. - recheck UAnegative -Management per psychiatric team -on Zyprexa Severe Protein calorie malnutrition Failure to Thrive Weight loss -[facility] Specialists following, continue supplementation shakes. - continue Megace for appetite. -OT/PT eval/tx, speech therapy. -fall precautions -add MVI, and encourage PO intake with ensure. - If unable to take diet and fluids, patient may need to be restrained to have IV fluid Albumin level 3.5, current weight 52.8 kg, weight on admission 63.5 kg -monitor weight, monitor albumin -Reconsult dietitian for calorie count -patient tolerating PO diet and fluid with assistance Elevated TSH, no known HX of Hypothyroidism - likely subclinical - recheck TSH and free T4 improved 3.36/0.89 -continue to monitor Suspected JOSE CRUZ Creatinine 1.19. Only other creatinine in the system 0.72 03/31/16 Likely secondary to poor oral intake/dehydration. -UA negative - Patient with minimal p.o. intake, s/p IVF for hydration -Avoid nephrotoxic agents -encourage increase fluid intake -Stable, monitor BMP, improving Creat 1.03 History of hypertension Hx of Dyslipidemia with hypotension, suspect secondary to hypovolemia secondary to poor oral intake -BP stable, intermittently elevated likely due to agitation. -encourage increase fluid intake -monitor BP, improving -ASCVD risk 4.9%, no statin recommended at this moment -Dietary and lifestyle changes. DVT prophylaxis: subq heparin Code Status: full code Discussed Condition With: patient and nurse
[2018-02-24] MEDS: Megestrol Acetate Liq 400 MG/10 ML UDC PO SCH (09:06)
[2018-02-24] MEDS: Sodium Chloride 0.9% 2 ML Flush BID IV.FLUSH SCH (09:07)
[2018-02-24] MEDS: Heparin - SQ 10,000 UNITS/ML Vial SQ SCH ×2 (09:07→21:02)
--- NOTE | 2018-02-24 13:27 | P.DIET ---
Nutritional Evaluation Type of nutrition evaluation: follow-up Nutrition consult regarding: Diet Evaluation Nutrition [place] [facility] [place]: [place]18 [facility] [place] PO Intake 02/22/18 [facility] [place] Subjective Oral Diet Tolerance Assessment Indicates: Edentulous Subjective Comments: Brought forward from 02/18: Pt feeding herself lunch when visited. Nursing staff reports pt drinks all of the Enlive supplement. Request for the Enlive supplement to be removed from meal trays, when pt refuses meals, and to be given to pt at a later time. Objective - Diagnosis Psychosis NOS - Objective % IBW: 117 Body Weight Used for Calculations: Actual (63.5 kg) Energy Needs - Lower Range (kCal/kg): 25 Energy Needs - Upper Range (kCal/kg): 30 Lower Limit kCal/kg (kCals): 1,588 Upper Limit kCal/kg (kCals): 1,905 Lower Limit Protein Factor (Grams per Kg): 1.1 Upper Limit Protein Factor (Grams per Kg): 1.3 Lower Protein Needs (Protein): 70 Upper Protein Needs (Protein): 83 Dietitian Reviewed in Medical Record: Current diet, Curent medications, Intake & Output, Labs, Medical history Diet Order: Regular Oral Diet Intake Amount: Poor <50% Speech Therapy Recommendations: Yes (02/16/18 Pureed w/full feeding assist) Objective Comments: PMH: anxiety, C-Diff, GERD, HTN, AFib, Psychosis, Schizophrenia, Gallstones A1C 5.1, BUN 21, Cr 1.03, GFR 54 Meds include: Zyprexa, MultiViatmin, Megace started today 02/18/18-pt refused Feeding - Current PO Supplement Current Supplement: Ensure Enlive Current Frequency of Supplement: Three times a day Current kCals Provided by Supplement: 350 Current Protein Provided by Supplement: 20 Assessment Assessment: Pt continues at nutritional risk r/t poor po intake. Pt is edentulous, pureed diet per ST Recs. Pt consuming around 50-100% for most meals lately and reported to be drinking her ensure. Continue Ensure Enlive TID. Rec save Ensure Enlive from meal trays for pt to have at a later time. Send Ensure pudding BID. [facility] [place] received on 02/22, initiated on 02/24, to end on . Spoke w/ RN about pt and placed calorie counting folder on nursing desk. RD to retrieve folder on 02/27. Labs reviewed. Wt noted. Dietitian following. Recommendations: 1. Continue pureed diet per ST and Ensure Enlive TID, Ensure Pudding 2. Save Ensure Enlive from meal trays for pt to have at a later time 3. Megace started 02/18/18 4. Calorie counting from 02/24 - 02/26, RD to retrieve folder on 02/27 5. Dietitian following Dietitian to Monitor: Lab values, Supplement acceptance, Intake & Output, Diet tolerance, Weight change, PO Intake, Medical course
--- NOTE | 2018-02-24 15:59 | ECG ---
Date Performed: 02/23/2018 Time Performed: 17:13:06 PTAGE: 62 years EKG: Sinus rhythm NORMAL ECG PREVIOUS TRACING : 02/17/2018 18.02 Since the previous tracing, no significant change noted DOCTOR: Mehreen Calvert Interpretating Date/Time 02/24/2018 15:57:33
--- NOTE | 2018-02-24 21:59 | P.PNPSY ---
Subjective Remarks: Patient seen for follow-up, chart reviewed. Discussion with nursing staff reported that patient noted to have more disorganization today with more repetitive speech and nonsensical statements. Patient was not compliant with Benadryl last evening and had poor sleep. Patient was found lying in hospital bed continued with more echolalia today and disorganization but was more cooperative with care with staff as patient had sponge bath and with improved nutritional intake . With the assistance of staff Review of Systems unobtainable due to mental condition Mental Status Examination Appearance: Appropriate Consciousness: Alert Motor Activity: Other (No motoric abnormalities noted) Speech: Rapid, Incoherent, Speech impediment Language: Word salad, Other (Echolalia) Fund of Knowledge: Poor Attention and Concentration: Inadequate (Slightly improved) Memory: Impaired Mood: Anxious Affect: Anxious Thought Process & Associations: Disorganized Thought Content: Other (Difficult to assess due to thought disorganization) Hallucination Type: None Delusion Type: Other (unable to assess) Suicidal Ideation: No (No SI voiced) Suicidal Plan: No Suicidal Intention: No Homicidal Ideation: No (No HI voiced) Homicidal Plan: No Homicidal Intention: No Insight: Poor Judgment: Poor Assessment and Plan - Assessment (1) Unspecified psychosis Code(s): F29 - Unspecified psychosis not due to a substance or known physiological condition Status: Acute - Plan Plan: Patient continued with more disorganization more Chlamydia today although poor sleep this evening also could be contributed to worsening of mental status today. Patient noted with consistent disorientation with occasional moments of lucidity. Psychosis may also be superimposed over degree of neurocognitive deficits but unable to get a baseline assessment of cognition due to current disorganization. We will continue current treatment and add diphenhydramine 50mg IM if patient refuses PO at HS. We will continue to monitor mood and behavior. Treatment team regular looking for facilities as accepting of patient. Discharge planning in progress. Justification for Continued Inpatient Stay: At risk of further decompensation at lower level care.
[2018-02-25] MEDS: Sodium Chloride 0.9% 2 ML Flush BID IV.FLUSH SCH ×3 (05:37→20:26)
[2018-02-25] MEDS: Megestrol Acetate Liq 400 MG/10 ML UDC PO SCH ×2 (08:03→08:23)
[2018-02-25] MEDS: Heparin - SQ 10,000 UNITS/ML Vial SQ SCH ×2 (08:04→20:25)
--- NOTE | 2018-02-25 12:31 | P.PNIM ---
Subjective Interval history: Follow-up visit severe protein calorie malnutrition, HTN, HLD. Patient seen and examined today. On 1 . Patient is laying in bed. Not responding to any questions or commands, eyes partially open. Mumbling words but incomprehensible. As per nursing, p.o. intake continues to be not enough. Physical Exam Vital signs: Vital Signs 02/25/18 06:00 Temperature 97.6 F Pulse Rate 52 L Respiratory Rate 18 Blood Pressure 135/63 Pulse Oximetry 93 L Intake & Output 02/24/18 02/25/18 02/25/18 18:59 06:59 18:59 Intake Total 1530 / 1530 240 / 240 Balance 1530 / 1530 240 / 240 Weight 56.7 kg Intake: Oral 1530 / 1530 240 / 240 Oral Supplement 0 / 0 Other: # Voids 2 Narrative: GENERAL: This is a thin female patient, appears to be older than stated age, In no apparent distress. SKIN: Warm and dry. HEENT: Normocephalic. Nose without bleeding. Airway patent. NECK: Trachea midline. CARDIOVASCULAR: Regular rate and rhythm without murmurs, gallops, or rubs. RESPIRATORY: Clear to auscultation. Breath sounds equal bilaterally. No wheezes , rales, or rhonchi. GASTROINTESTINAL: Abdomen soft, non-tender, nondistended. Bowel Sounds hypoactive MUSCULOSKELETAL: Extremities without clubbing, cyanosis, or edema. NEUROLOGICAL: Appears to have mild catatonia. Not responding to questions and commands. Incomprehensible speech. Results - Labs CBC & Chem 7: 02/21/18 09:51 02/21/18 09:57 Assessment and Plan - Assessment (1) Severe protein-calorie malnutrition Code(s): E43 - Unspecified severe protein-calorie malnutrition Status: Acute (2) HTN (hypertension) Code(s): I10 - Essential (primary) hypertension Status: Acute (3) JOSE CRUZ (acute kidney injury) Code(s): N17.9 - Acute kidney failure, unspecified Status: Acute (4) Psychoses Code(s): F29 - Unspecified psychosis not due to a substance or known physiological condition Status: Acute - Plan This is a 62-year-old female with a history of psychosis and admitted under Wagner act transfer from [facility] for psychiatric evaluation. Currently admitted an inpatient medical psych unit for further evaluation. Schizophrenia Acute Psychosis Altered mental Status -Workup to rule out organic cause of patient's acute psychosis, UA negative, TSH mildly elevated, free T4 WNL, B12 WNL, RPR WNL, CXR negative, -Management per psychiatric team -Appears to have some catatonia as patient does not follow any commands or moving in bed. Severe Protein calorie malnutrition Failure to Thrive Weight loss -Photo Mask Cleaner following, continue supplementation shakes. -continue Megace for appetite. -OT/PT eval/tx, speech therapy. -MVI, and encourage PO intake with ensure. -If unable to take diet and fluids, may consider NGT vs PEG -Patient tolerating PO diet and fluid with assistance. Continue with encouragement Suspected JOSE CRUZ Likely secondary to poor oral intake/dehydration. -UA negative -Patient with minimal p.o. intake, s/p IVF for hydration -Avoid nephrotoxic agents -encourage increase fluid intake History of hypertension Hx of Dyslipidemia with hypotension, suspect secondary to hypovolemia secondary to poor oral intake -BP stable, intermittently elevated likely due to agitation. -encourage increase fluid intake -monitor BP, improving -ASCVD risk 4.9%, no statin recommended at this moment DVT prophylaxis heparin Full code Discussed with nursing Stable from Hospitalist standpoint. We will sign off. Reconsult as needed. Thank you. Discharge Planning: DC disposition by primary team
--- NOTE | 2018-02-25 13:07 | P.TTN ---
- Patient Problems Problems: 1. Discharge planning 2. Medication compliance 3. Knowledge deficit 4. Lack of coping skills - Progress Toward Goals Provider Present: Dr. Erwin Cedillo Provider Input: 02/25/2018; No medication change, can be dc to placement when established. 02/23/2018; per doctor patient remain 1:1, medication compliant, no behavioral at this time. 02/16/2018; per doctor patient has unpredictable moods, medication is about normal range, no adjustments at this time. Nurse(s) Present: GATO Gibson Nurse Input: 02/25/2018; patient requires coaching and redirect with thought process, she continues to verbalize nonsensical thoughts with limited clarity. 02/23/2018; patient is compliant with treatment, still confused with disorganized behavior/thoughts, patient require assistance with basic needs including feeding and ADL's. Patient is loud, requirs 1:1, and rediction with behavior; assist with ADL's, and meals Psychiatric Counselors Present: Taryn Wiggins [facility] Psychiatric Therapist Input: 02/25/2018; Gadiel with [facility] to reassess patient; states he will call this counselor today to confirm when the facility can accept patient. 02/23/2018; according to Gadiel with [facility], they will have to table accepting patient until she is off restriction with chair with tray. 02/16/2018; counselor have faxed level 1 and [phone] to [facility], will follow-up with facility for placement Group Spec/RT/OT/LOCKE Present: Atul Justin OT Group Spec/RT/OT/LOCKE Input: 02/25/2018; per OT patient is unable to participate with activities. 02/23/2018; per OT patient is unable to participate with activities. 02/16/2018; per OT patient is unable to participate with activities at this time - Documentation Teaching Recipient: Patient
--- NOTE | 2018-02-25 14:10 | P.PNPSY ---
Subjective Remarks: Patient seen for follow-up, chart reviewed. Discussion with nursing staff reported that patient continues to have episodes of rambling but noted to be quieter now and allowing staff to help assist with nutritional intake and hygiene. Patient refused p.o. meds this morning and [facility] regional sales representative came to visit patient today. Patient was found lying hospital bed asleep was able to wake up superficially to engage in interview although patient was nonverbal with bond writer today was noted to recognize bond writer's presence but refused to respond to any questioning. Discussion with sitter stated the patient was able to allow for a bath today and drank nutritional supplements. Patient also noted on occasion heard to be rambling prior to interview earlier in the morning but no episodes of agitation or yelling. Review of Systems All other systems reviewed negative except as stated in HPI Mental Status Examination Appearance: Appropriate Consciousness: Alert Motor Activity: Other (No motoric abnormalities noted) Speech: Incoherent, Speech impediment, Other (rambling at times) Language: Other (Echolalia at times) Fund of Knowledge: Poor Attention and Concentration: Inadequate (Slightly improved) Memory: Impaired Mood: Anxious Affect: Anxious (at times) Thought Process & Associations: Disorganized Thought Content: Other (Difficult to assess due to thought disorganization) Hallucination Type: None Delusion Type: Other (unable to assess) Suicidal Ideation: No (No SI voiced) Suicidal Plan: No Suicidal Intention: No Homicidal Ideation: No (No HI voiced) Homicidal Plan: No Homicidal Intention: No Insight: Poor Judgment: Poor Assessment and Plan - Assessment (1) Unspecified psychosis Code(s): F29 - Unspecified psychosis not due to a substance or known physiological condition Status: Acute - Plan Plan: Patient this time continues with episodes of rambling but no episodes of agitation or yelling. Patient continues with noncompliance with medications p.o. but will at times take with food. Patient allowing for care by staff and noted to be improving and nutritional intake with encouragement. Patient continues require physical therapy to assist with mobility. We will continue current treatment. Continue to monitor mood and behavior. Patient to continue one-to-one observation for safety. Discharge planning in progress. Justification for Continued Inpatient Stay: At risk of further decompensation at lower level care.
[2018-02-26] MEDS: Sodium Chloride 0.9% 2 ML Flush BID IV.FLUSH SCH (09:05)
[2018-02-26] MEDS: Megestrol Acetate Liq 400 MG/10 ML UDC PO SCH (09:05)
[2018-02-26] MEDS: Heparin - SQ 10,000 UNITS/ML Vial SQ SCH (09:05)
--- NOTE | 2018-02-26 15:52 | P.PNPSY ---
Subjective Remarks: Patient seen for follow-up, chart reviewed. Discussion with nursing staff reported that patient patient now more amenable to eating and taking medications by mouth with food and with encouragement. Patient was found lying hospital bed was able to recognize that patient was alert to scientific technical writer's presence but refused to engage in interview today. Nursing staff reported that physical therapy came by to see patient and was able to get patient into hospital chair for 20 minutes but also noted significant rigidity during session. Collateral information obtained by nursing staff with patient stated that patient mentioned that patient had hip surgery previously along with having calluses on left foot prior to admission to the hospital. Patient currently on diphenhydramine along with antipsychotic treatment which help mitigate any possibility of acute dystonia related to side effects from antipsychotic medications. Review of Systems All other systems reviewed negative except as stated in HPI Mental Status Examination Appearance: Appropriate Consciousness: Alert Motor Activity: Other (No motoric abnormalities noted) Speech: Incoherent, Speech impediment, Other (rambling at times) Language: Other (Echolalia at times) Fund of Knowledge: Poor Attention and Concentration: Inadequate Memory: Impaired Mood: Other (Unable to assess due to patient's not engaging interview today.) Affect: Flat Thought Process & Associations: Disorganized Thought Content: Other (Difficult to assess due to thought disorganization) Hallucination Type: Other (Unable to assess due to patient's not engaging interview today.) Delusion Type: Other (unable to assess) Insight: Poor Judgment: Poor Assessment and Plan - Assessment (1) Unspecified psychosis Code(s): F29 - Unspecified psychosis not due to a substance or known physiological condition Status: Acute - Plan Plan: Patient continues with disorganization, continues with rambling, refusing to engage in interview today with scientific technical writer. Physical therapy worked with patient today was noted to have generalized stiffness which was noted to have been present prior to her admission as per collateral formation from patient's with nurse. We will continue current treatment. We will continue to monitor mood and behavior. We will continue to search for facility that is accepting patient for transfer as patient's is unable to care for patient at home at this time. Continue one-to-one observation continue to encourage patient to continue p.o. and nutritional intake. Discharge planning in progress. Justification for Continued Inpatient Stay: At risk of further decompensation at lower level care.
[2018-02-26] MEDS: Acetaminophen 500 MG Tablet PO PRN (17:04)
--- NOTE | 2018-02-26 18:06 | P.PNIM ---
Subjective Interval history: Reconsulted for bilateral lower extremity pain. As per nursing, patient had physical therapy today and appears to be grimacing in pain, becoming agitated. Consulted if we can provide some pain management for the patient. Patient was seen and examined today. Patient was laying in bed with one-to-one sitter at the bedside. This patient was approach and touch patient started to open her eyes and starts to become agitated. When her legs was touch patient started to stiffen up and started yelling, echolalia. Appears to have some catatonia. Incomprehensible, nonconversant. Physical Exam Vital signs: Vital Signs 02/25/18 18:31 Temperature 97.9 F Pulse Rate 74 Respiratory Rate 16 Blood Pressure 111/52 L Pulse Oximetry 96 Intake & Output 02/25/18 02/26/18 02/26/18 18:59 06:59 18:59 Intake Total 240 / 240 480 / 480 240 / 240 Balance 240 / 240 480 / 480 240 / 240 Intake: Oral 240 / 240 480 / 480 240 / 240 Other: Date of Last Bowel Movement 02/15/18 Narrative: GENERAL: This is a thin female patient, appears to be older than stated age, In no apparent distress. SKIN: Warm and dry. HEENT: Normocephalic. Nose without bleeding. Airway patent. NECK: Trachea midline. CARDIOVASCULAR: Regular rate and rhythm without murmurs, gallops, or rubs. RESPIRATORY: Clear to auscultation. Breath sounds equal bilaterally. No wheezes , rales, or rhonchi. GASTROINTESTINAL: Abdomen soft, non-tender, nondistended. Bowel Sounds hypoactive MUSCULOSKELETAL: Extremities without clubbing, cyanosis, or edema. NEUROLOGICAL: Appears to have mild catatonia. Not responding to questions and commands. Incomprehensible speech. Results - Labs CBC & Chem 7: 02/21/18 09:51 02/21/18 09:57 Assessment and Plan - Assessment (1) Severe protein-calorie malnutrition Code(s): E43 - Unspecified severe protein-calorie malnutrition Status: Acute (2) HTN (hypertension) Code(s): I10 - Essential (primary) hypertension Status: Acute (3) JOSE CRUZ (acute kidney injury) Code(s): N17.9 - Acute kidney failure, unspecified Status: Acute (4) Psychoses Code(s): F29 - Unspecified psychosis not due to a substance or known physiological condition Status: Acute - Plan This is a 62-year-old female with a history of psychosis and admitted under Wagner act transfer from [facility] for psychiatric evaluation. Currently admitted an inpatient medical psych unit for further evaluation. Agitation Pain vs Catatonia/Psychosis -Does not want to be touched or moved. Stiffens/rigor when touched. Started screaming -Baclofen 5mg q8 hrs -Ativan 1mg x1 dose -Tylenol PRN -Benefit with possibly Cogentin or Ativan in between as patient has some catatonic features. Schizophrenia Acute Psychosis Altered mental Status -Workup to rule out organic cause of patient's acute psychosis, UA negative, TSH mildly elevated, free T4 WNL, B12 WNL, RPR WNL, CXR negative, -Management per psychiatric team -Appears to have some catatonia as patient does not follow any commands or moving in bed. Severe Protein calorie malnutrition Failure to Thrive Weight loss -Oracle Architect following, continue supplementation shakes. -continue Megace for appetite. -OT/PT eval/tx, speech therapy. -MVI, and encourage PO intake with ensure. -If unable to take diet and fluids, may consider NGT vs PEG -Patient tolerating PO diet and fluid with assistance. Continue with encouragement JOSE CRUZ Likely secondary to poor oral intake/dehydration. -UA negative -Patient with minimal p.o. intake, s/p IVF for hydration -Avoid nephrotoxic agents -encourage increase fluid intake History of hypertension Hx of Dyslipidemia with hypotension, suspect secondary to hypovolemia secondary to poor oral intake -BP stable, intermittently elevated likely due to agitation. -encourage increase fluid intake -monitor BP, improving -ASCVD risk 4.9%, no statin recommended at this moment DVT prophylaxis heparin Full code Discussed with nursing Discharge Planning: DC disposition by primary team
[2018-02-27] MEDS: Heparin - SQ 10,000 UNITS/ML Vial SQ SCH ×2 (08:11→20:57)
[2018-02-27] MEDS: Sodium Chloride 0.9% 2 ML Flush BID IV.FLUSH SCH ×2 (08:12→20:57)
[2018-02-27] MEDS: Megestrol Acetate Liq 400 MG/10 ML UDC PO SCH (08:12)
--- NOTE | 2018-02-27 09:56 | P.PNIM ---
Subjective Interval history: Follow-up visit HTN, HLD, rigidity vs pain. She is seen and examined. Patient started to be agitated and yells incomprehensible words when being touched. Rigidity noted upon touching patient either bilateral uppers or lower extremities. Patient shows stiffens up and started mumbling words. Physical Exam Vital signs: Vital Signs 02/27/18 06:00 Temperature 97.8 F Pulse Rate 69 Respiratory Rate 20 Blood Pressure 110/67 Pulse Oximetry 93 L Intake & Output 02/26/18 02/27/18 02/27/18 18:59 06:59 18:59 Intake Total 240 / 240 240 / 240 Balance 240 / 240 240 / 240 Intake: Oral 240 / 240 240 / 240 Other: # Voids 2 Date of Last Bowel Movement 02/15/18 Narrative: GENERAL: This is a thin female patient, appears to be older than stated age, In no apparent distress. SKIN: Warm and dry. HEENT: Normocephalic. Nose without bleeding. Airway patent. NECK: Trachea midline. CARDIOVASCULAR: Regular rate and rhythm without murmurs, gallops, or rubs. RESPIRATORY: Clear to auscultation. Breath sounds equal bilaterally. No wheezes , rales, or rhonchi. GASTROINTESTINAL: Abdomen soft, non-tender, nondistended. Bowel Sounds hypoactive MUSCULOSKELETAL: Extremities without clubbing, cyanosis, or edema. NEUROLOGICAL: Not responding to questions and commands. Incomprehensible speech. Agitated. Results - Labs CBC & Chem 7: 02/21/18 09:51 02/21/18 09:57 Assessment and Plan - Assessment (1) Severe protein-calorie malnutrition Code(s): E43 - Unspecified severe protein-calorie malnutrition Status: Acute (2) HTN (hypertension) Code(s): I10 - Essential (primary) hypertension Status: Acute (3) JOSE CRUZ (acute kidney injury) Code(s): N17.9 - Acute kidney failure, unspecified Status: Acute (4) Psychoses Code(s): F29 - Unspecified psychosis not due to a substance or known physiological condition Status: Acute - Plan This is a 62-year-old female with a history of psychosis and admitted under Wagner act transfer from [facility] for psychiatric evaluation. Currently admitted an inpatient medical psych unit for further evaluation. Agitation Pain vs Catatonia/Psychosis -Does not want to be touched or moved. Stiffens/rigor when touched. Started screaming -Baclofen 5mg q8 hrs -Ativan 1mg x1 dose, last night -Tylenol PRN -Benefit with possibly Cogentin or Ativan in between as patient has some catatonic features 02/27/19-Continues to be agitated and rigidity was noted with just touching, unsure if this patient is going to benefit with narcotic medication as most of her reaction to touch is possibly related to psychosis versus schizophrenia. Does not seem to appear in pain, mostly appearing to be really scared/ anxious. Schizophrenia Acute Psychosis Altered mental Status -Workup to rule out organic cause of patient's acute psychosis, UA negative, TSH mildly elevated, free T4 WNL, B12 WNL, RPR WNL, CXR negative, -Management per psychiatric team -Appears to have some catatonia as patient does not follow any commands or moving in bed. Severe Protein calorie malnutrition Failure to Thrive Weight loss -Butt Sawyer following, continue supplementation shakes. -continue Megace for appetite. -OT/PT eval/tx, speech therapy. -MVI, and encourage PO intake with ensure. -If unable to take diet and fluids, may consider NGT vs PEG -Patient tolerating PO diet and fluid with assistance. Continue with encouragement JOSE CRUZ Likely secondary to poor oral intake/dehydration. -UA negative -Patient with minimal p.o. intake, s/p IVF for hydration -Avoid nephrotoxic agents -encourage increase fluid intake History of hypertension Hx of Dyslipidemia with hypotension, suspect secondary to hypovolemia secondary to poor oral intake -BP stable, intermittently elevated likely due to agitation. -encourage increase fluid intake -monitor BP, improving -ASCVD risk 4.9%, no statin recommended at this moment DVT prophylaxis heparin Full code Discussed with nursing Please consider possible regimen changes that could help with anxiety/ agitation. Please reconsult as needed. We will sign off for now. Discharge Planning: DC disposition by primary team
--- NOTE | 2018-02-27 13:51 | P.DIET ---
Nutritional Evaluation Type of nutrition evaluation: follow-up Nutrition consult regarding: Diet Evaluation Nutrition screening: [facility] Screening comments: 02/12/18 [facility] Poor PO Intake 02/22/18 [facility] for calorie counting Subjective Oral Diet Tolerance Assessment Indicates: Edentulous Subjective Comments: Brought forward from 02/18: Pt feeding herself lunch when visited. Nursing staff reports pt drinks all of the Enlive supplement. Request for the Enlive supplement to be removed from meal trays, when pt refuses meals, and to be given to pt at a later time. Objective - Diagnosis Psychosis NOS - Objective % IBW: 117 Body Weight Used for Calculations: Actual (63.5 kg) Energy Needs - Lower Range (kCal/kg): 25 Energy Needs - Upper Range (kCal/kg): 30 Lower Limit kCal/kg (kCals): 1,588 Upper Limit kCal/kg (kCals): 1,905 Lower Limit Protein Factor (Grams per Kg): 1.1 Upper Limit Protein Factor (Grams per Kg): 1.3 Lower Protein Needs (Protein): 70 Upper Protein Needs (Protein): 83 Dietitian Reviewed in Medical Record: Current diet, Curent medications, Intake & Output, Labs, Medical history Diet Order: Regular Oral Diet Intake Amount: Poor <50% Speech Therapy Recommendations: Yes (02/16/18 Pureed w/full feeding assist) Objective Comments: PMH: anxiety, C-Diff, GERD, HTN, AFib, Psychosis, Schizophrenia, Gallstones A1C 5.1, BUN 21, Cr 1.03, GFR 54 Meds include: Zyprexa, MVI, Megace started today 02/18/18-pt refused Feeding - Current PO Supplement Current Supplement: Ensure Enlive Current Frequency of Supplement: Three times a day Current kCals Provided by Supplement: 350 Current Protein Provided by Supplement: 20 Assessment Assessment: Pt continues at nutritional risk r/t poor po intake. Pt is edentulous, pureed diet per ST Recs. Pt consuming around 75-100% for most meals lately and reported to be drinking her ensure. Rec save Ensure Enlive from meal trays for pt to have at a later time. No records of pts PO intake found in calorie count folder, not enough information to correctly assess pts intake. Labs reviewed. Wt noted. Dietitian following. Recommendations: 1. Continue pureed diet per ST and Ensure Enlive TID, Ensure Pudding 2. Save Ensure Enlive from meal trays for pt to have at a later time 3. Megace started 02/18/18 4. Dietitian following Dietitian to Monitor: Lab values, Supplement acceptance, Intake & Output, Diet tolerance, Weight change, PO Intake, Medical course
--- NOTE | 2018-02-27 15:35 | P.PNPSY ---
Subjective Remarks: Patient seen for follow-up, chart reviewed. Discussion with nursing staff reported that patient continues with rambling at times, very concrete responses , poor eye contact but eating and drinking much better with encouragement. Patient working with physical therapy and noted to have stiffness and difficulty with standing and walking at this time. Patient was found lying hospital bed earlier noted to be rambling prior to interview but when entering the room patient ceased and was able to have some eye contact although noted to be attentive and alert to public relations writer's presence. Patient at times would repeat "I want to get out of here" and when asked direct questioning was able to answer concretely appropriately at times. Patient agreed to participate in some activities such as coloring which will be encouraged. Nursing facility at this time continues to isolate and consider patient to be accepted to their residential facility and awaiting confirmation from this facility prior to transfer. Review of Systems All other systems reviewed negative except as stated in HPI Mental Status Examination Appearance: Appropriate Consciousness: Alert Motor Activity: Other (No motoric abnormalities noted) Speech: Incoherent, Speech impediment, Other (rambling at times) Language: Other (Echolalia at times) Fund of Knowledge: Poor Attention and Concentration: Inadequate Memory: Impaired Mood: Other (Unable to assess due to patient's not engaging interview today.) Affect: Flat Thought Process & Associations: Disorganized Thought Content: Other (Difficult to assess due to thought disorganization) Hallucination Type: Other (Unable to assess due to patient's not engaging interview today.) Delusion Type: Other (unable to assess) Suicidal Ideation: No (No SI voiced) Suicidal Plan: No Suicidal Intention: No Homicidal Ideation: No (No HI voiced) Homicidal Plan: No Homicidal Intention: No Insight: Poor Judgment: Poor Assessment and Plan - Assessment (1) Unspecified psychosis Code(s): F29 - Unspecified psychosis not due to a substance or known physiological condition Status: Acute - Plan Plan: Patient this time continues with occasional rambling but noted to have less episodes episodes of yelling and constant echolalia which has significantly decreased. Patient also has improved p.o. intake of food and liquids but continues to require assistance with this. Patient noted to continue to have limited mobility which physical therapy is currently working with patient. Continue to encourage patient to continue exercises as per physical therapy recommendations. Continue current treatment. Continue to monitor mood and behavior. Awaiting confirmation from nursing facility if patient is accepted. Discharge planning a progress. Justification for Continued Inpatient Stay: At risk of further decompensation at lower level care.
[2018-02-27] MEDS: Baclofen 10 MG Tablet PO SCH ×2 (16:48→22:48)
[2018-02-28] MEDS: Heparin - SQ 10,000 UNITS/ML Vial SQ SCH ×2 (08:03→21:13)
[2018-02-28] MEDS: Megestrol Acetate Liq 400 MG/10 ML UDC PO SCH (08:03)
[2018-02-28] MEDS: Sodium Chloride 0.9% 2 ML Flush BID IV.FLUSH SCH ×2 (08:03→21:15)
--- NOTE | 2018-02-28 14:07 | P.PNPSY ---
Subjective Remarks: Patient was seen and case discussed with nursing. Patient is alert and oriented x1. She is internally stimulated and has severe auto Donna throughout the day. No outbursts. Did not participate well with interview Mental Status Examination Appearance: Appropriate Consciousness: Alert Motor Activity: Other (No motoric abnormalities noted) Speech: Incoherent, Speech impediment, Other (rambling at times) Language: Other ([place]) Fund of Knowledge: Poor Attention and Concentration: Inadequate Memory: Impaired Mood: Other (Unable to assess due to patient's not engaging interview today.) Affect: Flat Thought Process & Associations: Disorganized Thought Content: Other (Difficult to assess due to thought disorganization) Hallucination Type: Other (Unable to assess due to patient's not engaging interview today.) Delusion Type: Other (unable to assess) Suicidal Ideation: No (No SI voiced) Suicidal Plan: No Suicidal Intention: No Homicidal Ideation: No (No HI voiced) Homicidal Plan: No Homicidal Intention: No Insight: Poor Judgment: Poor Assessment and Plan - Assessment (1) Unspecified psychosis Code(s): F29 - Unspecified psychosis not due to a substance or known physiological condition Status: Acute - Plan Plan: Continue current treatment plan Justification for Continued Inpatient Stay: Patient would decompensate in a less restrictive setting
[2018-02-28] MEDS: Baclofen 10 MG Tablet PO SCH ×4 (14:59→21:26)
[2018-03-01] MEDS: Baclofen 10 MG Tablet PO SCH ×2 (05:39→16:54)
[2018-03-01] MEDS: Acetaminophen 500 MG Tablet PO PRN ×2 (09:28→16:54)
[2018-03-01] MEDS: Megestrol Acetate Liq 400 MG/10 ML UDC PO SCH (09:28)
[2018-03-01] MEDS: Sodium Chloride 0.9% 2 ML Flush BID IV.FLUSH SCH (09:29)
[2018-03-01] MEDS: Heparin - SQ 10,000 UNITS/ML Vial SQ SCH ×3 (09:30→20:26)
--- NOTE | 2018-03-01 14:23 | P.PNPSY ---
Subjective Remarks: Patient was seen and case discussed with nursing. Patient remains confused and internally preoccupied. She is spending the day with auto Donna. Yells out at random times. No ETO's needed Mental Status Examination Appearance: Appropriate Consciousness: Alert Motor Activity: Other (No motoric abnormalities noted) Speech: Incoherent, Speech impediment, Other (rambling at times) Language: Other ([place]) Fund of Knowledge: Poor Attention and Concentration: Inadequate Memory: Impaired Mood: Other (Unable to assess due to patient's not engaging interview today.) Affect: Flat Thought Process & Associations: Disorganized Thought Content: Other (Difficult to assess due to thought disorganization) Hallucination Type: Other (Unable to assess due to patient's not engaging interview today.) Delusion Type: Other (unable to assess) Suicidal Ideation: No (No SI voiced) Suicidal Plan: No Suicidal Intention: No Homicidal Ideation: No (No HI voiced) Homicidal Plan: No Homicidal Intention: No Insight: Poor Judgment: Poor Assessment and Plan - Assessment (1) Unspecified psychosis Code(s): F29 - Unspecified psychosis not due to a substance or known physiological condition Status: Acute - Plan Plan: Continue current treatment plan Justification for Continued Inpatient Stay: Patient would decompensate in a less restrictive setting
[2018-03-01] MEDS: Aluminum/Magnesium/Simethacone Susp 30 ML UDC PO PRN (17:15)
[2018-03-02] MEDS: Baclofen 10 MG Tablet PO SCH ×3 (05:43→22:36)
[2018-03-02] MEDS: Sodium Chloride 0.9% 2 ML Flush BID IV.FLUSH SCH ×3 (05:43→20:50)
[2018-03-02] MEDS: Megestrol Acetate Liq 400 MG/10 ML UDC PO SCH (08:03)
[2018-03-02] MEDS: Heparin - SQ 10,000 UNITS/ML Vial SQ SCH ×2 (08:03→20:50)
--- NOTE | 2018-03-02 15:04 | P.PNPSY ---
Subjective Remarks: Patient seen for follow-up, chart reviewed. Discussion with nursing staff reported that patient fed herself Friday with ice cream, but continues to require encouragement and assistance for meals in general. Patient was able to sit in chair for 4 hours over the weekend and had poor sleep less evening. Patient was found lying hospital bed noted be somnolent likely due to poor sleep less evening. Patient was able to engage in interview but as per nursing report later was able to eat and to eat her breakfast 100%, and continues with occasional rambling. Patient not having any episodes of irritability has been cooperative with assistance and care with staff. Review of Systems All other systems reviewed negative except as stated in HPI Mental Status Examination Appearance: Appropriate Consciousness: Alert Motor Activity: Other (No motoric abnormalities noted) Speech: Incoherent, Speech impediment, Other (rambling at times) Language: Other (No longer with echolalia but rambling) Fund of Knowledge: Poor Attention and Concentration: Inadequate Memory: Impaired Mood: Other (Unable to assess due to patient's not engaging interview today.) Affect: Flat Thought Process & Associations: Disorganized Thought Content: Other (Difficult to assess due to thought disorganization) Hallucination Type: Other (Unable to assess due to patient's not engaging interview today.) Delusion Type: Other (unable to assess) Suicidal Ideation: No Suicidal Plan: No Suicidal Intention: No Homicidal Ideation: No Homicidal Plan: No Homicidal Intention: No Insight: Poor Judgment: Poor Assessment and Plan - Assessment (1) Unspecified psychosis Code(s): F29 - Unspecified psychosis not due to a substance or known physiological condition Status: Acute - Plan Plan: Patient continues with rambling at times unable to engage adequately in interview but is alert of staff presence and allowing for care. Patient improving and nutritional intake, improving with compliance of medications. Patient also continues to work with physical therapy. We will continue current treatment. We will continue to wait for residential facility to accept patient for long-term placement. Discharge planning in progress. Justification for Continued Inpatient Stay: At risk of further decompensation at lower level care.
--- NOTE | 2018-03-02 15:26 | P.DIET ---
Nutritional Evaluation Type of nutrition evaluation: follow-up Nutrition consult regarding: Diet Evaluation Nutrition screening: [facility] [place] Screening comments: 02/12/18 [facility] [place] Poor PO Intake 02/22/18 [facility] [place] for calorie counting Subjective Oral Diet Tolerance Assessment Indicates: Edentulous Subjective Comments: Pt sleeping during this visit, opening her eyes and then back to sleep. Sitter at bedside and reports pt needed to be fed for both breakfast and lunch today w/ 100% po for these meals; however, did not drink her Ensure for the breakfast meal. GATO Pritchett informed Calorie Count has been started. Brought forward from 02/18: Pt feeding herself lunch when visited. Nursing staff reports pt drinks all of the Enlive supplement. Request for the Enlive supplement to be removed from meal trays, when pt refuses meals, and to be given to pt at a later time. Objective - Diagnosis Psychosis NOS - Objective % IBW: 117 Body Weight Used for Calculations: Actual (63.5 kg) Energy Needs - Lower Range (kCal/kg): 25 Energy Needs - Upper Range (kCal/kg): 30 Lower Limit kCal/kg (kCals): 1,588 Upper Limit kCal/kg (kCals): 1,905 Lower Limit Protein Factor (Grams per Kg): 1.1 Upper Limit Protein Factor (Grams per Kg): 1.3 Lower Protein Needs (Protein): 70 Upper Protein Needs (Protein): 83 Dietitian Reviewed in Medical Record: Current diet, Curent medications, Intake & Output, Labs, Medical history Diet Order: Regular Oral Diet Intake Amount: Fair 50-75% Speech Therapy Recommendations: Yes (02/16/18 Pureed w/full feeding assist) Objective Comments: PMH: anxiety, C-Diff, GERD, HTN, AFib, Psychosis, Schizophrenia, Gallstones A1C 5.1 Meds include: Zyprexa, MV, Megace started 02/18/18 Feeding - Current PO Supplement Current Supplement: Ensure Enlive Current Frequency of Supplement: Three times a day Current kCals Provided by Supplement: 350 Current Protein Provided by Supplement: 20 Supplement Comments: Ensure Pudding BID(= 170 kcal and 4g protein per serving) Assessment Assessment: Pt continues at nutritional risk r/t poor po intake. Pt is edentulous, pureed diet per ST Recs. Pt consuming around 75-100% po for meals lately and reported to be drinking her Ensure w/most meals. Rec save Ensure Enlive from meal trays for pt to have at a later time. Continue Ensure Pudding BID. Calorie Count restarted today 03/02/18 through 03/04/18 w/Nutrition Recs to follow 03/05. Wt changes noted. Recommendations: 1. Rec save Ensure Enlive from meal trays for pt to have at a later time 2. Continue Ensure Pudding BID 3. Calorie Count restarted today 03/02/18 through 03/04/18 w/Nutrition Recs to follow 03/05 Dietitian to Monitor: Lab values, Supplement acceptance, Intake & Output, Diet tolerance, Weight change, PO Intake, Medical course
[2018-03-03] MEDS: Heparin - SQ 10,000 UNITS/ML Vial SQ SCH ×2 (08:29→21:29)
[2018-03-03] MEDS: Megestrol Acetate Liq 400 MG/10 ML UDC PO SCH (08:29)
[2018-03-03] MEDS: Sodium Chloride 0.9% 2 ML Flush BID IV.FLUSH SCH ×2 (08:30→21:37)
--- NOTE | 2018-03-03 08:46 | P.PNPSY ---
Subjective Remarks: Patient seen for follow-up, chart reviewed. Discussion with nursing staff reported that patient worked with physical therapy yesterday, had received ETO last evening as patient was disruptive on the unit and unable to sleep. Patient slept about 2 hours. Patient was found sitting in hospital chair alert and able to engage more in interview today. Patient was able to have some eye contact and answer concrete questions such as if she has spoken to her , she had difficulty sleeping which she stated no contrary to nursing report and agreed to engage in some activities such as coloring and agreed to allow assistance for patient to get into the shower today. Patient states she is eating and drinking well. One-to-one staff reported the patient ate her breakfast on her own today. Patient continues to have some echolalia. Review of Systems All other systems reviewed negative except as stated in HPI Mental Status Examination Appearance: Appropriate Consciousness: Alert Motor Activity: Other (No motoric abnormalities noted) Speech: Incoherent, Speech impediment, Other (rambling at times) Language: Other (No longer with echolalia but rambling) Fund of Knowledge: Poor Attention and Concentration: Inadequate Memory: Impaired Mood: Other (Unable to assess due to patient's not engaging interview today.) Affect: Flat Thought Process & Associations: Disorganized (Lessening), Other ([place]) Thought Content: Other (Difficult to assess due to thought disorganization) Hallucination Type: Other (Unable to assess due to patient's not engaging interview today.) Delusion Type: Other (unable to assess) Suicidal Ideation: No Suicidal Plan: No Suicidal Intention: No Homicidal Ideation: No Homicidal Plan: No Homicidal Intention: No Insight: Poor Judgment: Poor Assessment and Plan - Assessment (1) Unspecified psychosis Code(s): F29 - Unspecified psychosis not due to a substance or known physiological condition Status: Acute - Plan Plan: Patient continues with very concrete responses mostly able to answer yes or no but unable to elaborate with occasional echolalia. Patient had poor sleep last evening, has been improving and p.o. intake has patient ate breakfast on her own today. Patient continues to require physical therapy and assistance for ADLs. Continue current treatment. Treatment team continues to search for facility that is willing to accept her for long-term care. Continue one-to-one observation. Discharge planning in progress. Justification for Continued Inpatient Stay: At risk of further decompensation at lower level care.
--- NOTE | 2018-03-03 09:56 | P.TTN ---
- Patient Problems Problems: 1. Discharge planning 2. Medication compliance 3. Knowledge deficit 4. Lack of coping skills - Progress Toward Goals Provider Present: Dr. Erwin Cedillo Provider Input: 03/02/2018; per psychiatrist patient's mood is stable with some unpredicatable behavior, patient remain on 1:1 due to fall risk. 02/25/2018; No medication change, can be dc to placement when established. 02/23/2018; per doctor patient remain 1:1, medication compliant, no behavioral at this time. ; per doctor patient has unpredictable moods, medication is about normal range, no adjustments at this time. Nurse(s) Present: RN Nurse Input: 03/02/2018; patient mood is unpredictable, she is able to give appropriate responsive at select times, easily agitated, continues to require coaching and redirection. 02/25/2018; patient requires coaching and redirect with thought process, she continues to verbalize nonsensical thoughts with limited clarity. 02/23/2018; patient is compliant with treatment, still confused with disorganized behavior/thoughts, patient require assistance with basic needs including feeding and ADL's. Patient is loud, requirs 1:1, and rediction with behavior; assist with ADL's, and meals Psychiatric Counselors Present: Taryn Wiggins [facility] Psychiatric Therapist Input: 03/02/2018; counselor spoke with Gadiel from [facility], reports he is waiting feed back from his medical assistant instructor due to standing order for Benadryl. According to Gadiel they do not give this medication, but he is trying to get it cleared since patient's behavior is improved with appropriate response. Group Spec/RT/OT/LOCKE Present: Atul Justin OT Group Spec/RT/OT/LOCKE Input: 03/02/2018; per OT patient is unable to participate with any activities at this time. 02/25/2018; per OT patient is unable to participate with activities. 02/23/2018; per OT patient is unable to participate with activities. 02/16/2018; per OT patient is unable to participate with activities at this time - Documentation Teaching Recipient: Patient
[2018-03-03] MEDS: Acetaminophen 500 MG Tablet PO PRN (21:30)
[2018-03-03] MEDS: Baclofen 10 MG Tablet PO SCH ×2 (21:37→22:40)
[2018-03-04] MEDS: Heparin - SQ 10,000 UNITS/ML Vial SQ SCH ×2 (08:02→20:53)
[2018-03-04] MEDS: Baclofen 10 MG Tablet PO SCH ×3 (08:02→21:06)
[2018-03-04] MEDS: Megestrol Acetate Liq 400 MG/10 ML UDC PO SCH (08:02)
[2018-03-04] MEDS: Sodium Chloride 0.9% 2 ML Flush BID IV.FLUSH SCH ×2 (08:03→20:54)
--- NOTE | 2018-03-04 13:33 | P.PNPSY ---
Subjective Remarks: Patient seen for follow up; chart reviewed. Discussion with nursing staff reported patient was able to tolerate sitting in chair this morning, ate breakfast. Patient was found sitting in hospital chair with sitter at bedside. Patient noted to be rambling but looking at the window. Patient was able to recognize brief writer's presence with occasional darting eye side to see who I was. Patient appeared to comprehend questioning but would not answer only at times make gradual sounds or say yes or no. Staff who has been one-to-one with patient stated that at times she would ask for certain foods, or makes clear statements to communicate with staff at times. Review of Systems All other systems reviewed negative except as stated in HPI Mental Status Examination Appearance: Appropriate Consciousness: Alert Motor Activity: Other (No motoric abnormalities noted) Speech: Incoherent, Speech impediment, Other (rambling at times) Language: Other (No longer with echolalia but rambling) Fund of Knowledge: Poor Attention and Concentration: Inadequate Memory: Impaired Mood: Other (Unable to assess due to patient's not engaging interview today.) Affect: Flat Thought Process & Associations: Disorganized (Lessening), Other ([place]) Thought Content: Other (Difficult to assess due to thought disorganization) Hallucination Type: Other (Unable to assess due to patient's not engaging interview today.) Delusion Type: Other (unable to assess) Suicidal Ideation: No Suicidal Plan: No Suicidal Intention: No Homicidal Ideation: No Homicidal Plan: No Homicidal Intention: No Insight: Poor Judgment: Poor Assessment and Plan - Assessment (1) Unspecified psychosis Code(s): F29 - Unspecified psychosis not due to a substance or known physiological condition Status: Acute - Plan Plan: Patient continued with very concrete thought process, answering concretely to questioning and not able to elaborate. Patient continues be noted to be rambling at times but lessening and able to make coherent statements to staff as per nursing report. Patient now tolerating being out of bed more continues to require physical therapy and assistance with ADLs but noticing to be eating more on her own now. We will continue current treatment. Continue to monitor mood and behavior. Discharge planning in progress. Justification for Continued Inpatient Stay: At risk of further decompensation at lower level care.
[2018-03-05] MEDS: Megestrol Acetate Liq 400 MG/10 ML UDC PO SCH (08:41)
[2018-03-05] MEDS: Heparin - SQ 10,000 UNITS/ML Vial SQ SCH ×2 (08:46→21:30)
[2018-03-05] MEDS: Sodium Chloride 0.9% 2 ML Flush BID IV.FLUSH SCH ×2 (08:47→21:31)
--- NOTE | 2018-03-05 12:54 | P.PNPSY ---
Subjective Remarks: Patient seen for follow-up, chart reviewed. Discussion with nursing staff reported that patient no behavioral disturbances, eating much better, slept well last night. Patient was found lying in hospital bed asleep but was able to wake up to acknowledged fiction and nonfiction writer prose's presence but did not engage in interview today. Patient was able to have occasional eye contact was brighter but did not want to cooperate with answering any questions. Nursing staff reported the patient has been in good behavioral control, ran out continues to ramble at times but was compliant with care. Review of Systems All other systems reviewed negative except as stated in HPI Mental Status Examination Appearance: Appropriate Consciousness: Alert Motor Activity: Other (No motoric abnormalities noted) Speech: Incoherent, Speech impediment, Other (rambling at times) Language: Other (No longer with echolalia but rambling) Fund of Knowledge: Poor Attention and Concentration: Inadequate Memory: Impaired Mood: Other (Unable to assess due to patient's not engaging interview today.) Affect: Flat Thought Process & Associations: Other ([place]) Thought Content: Other (Difficult to assess due to thought disorganization) Hallucination Type: Other (Unable to assess due to patient's not engaging interview today.) Delusion Type: Other (unable to assess) Suicidal Ideation: No Suicidal Plan: No Suicidal Intention: No Homicidal Ideation: No Homicidal Plan: No Homicidal Intention: No Insight: Poor Judgment: Poor Assessment and Plan - Assessment (1) Unspecified psychosis Code(s): F29 - Unspecified psychosis not due to a substance or known physiological condition Status: Acute - Plan Plan: Patient continues with very concrete thought process that responses but noted with minimal echolalia and at times would make coherent statements to nursing staff. We will continue current treatment. Continue to monitor mood and behavior. Patient is compliant with medications. Discharge planning in progress. Justification for Continued Inpatient Stay: At risk of further decompensation at lower level care.
--- NOTE | 2018-03-05 13:06 | P.DIET ---
Nutritional Evaluation Type of nutrition evaluation: follow-up Nutrition consult regarding: Diet Evaluation Nutrition screening: [facility] [place] Screening comments: 02/12/18 [facility] Poor PO Intake 02/22/18 [facility] for calorie counting Subjective Oral Diet Tolerance Assessment Indicates: Edentulous Subjective Comments: Pt w/100% po for breakfast today. Objective - Diagnosis Psychosis NOS - Objective % IBW: 117 Body Weight Used for Calculations: Actual (63.5 kg) Energy Needs - Lower Range (kCal/kg): 25 Energy Needs - Upper Range (kCal/kg): 30 Lower Limit kCal/kg (kCals): 1,588 Upper Limit kCal/kg (kCals): 1,905 Lower Limit Protein Factor (Grams per Kg): 1.1 Upper Limit Protein Factor (Grams per Kg): 1.3 Lower Protein Needs (Protein): 70 Upper Protein Needs (Protein): 83 Dietitian Reviewed in Medical Record: Current diet, Curent medications, Intake & Output, Labs, Medical history Diet Order: Regular Oral Diet Intake Amount: Good 75-90% Speech Therapy Recommendations: Yes (02/16/18 Pureed w/full feeding assist) Objective Comments: PMH: anxiety, C-Diff, GERD, HTN, AFib, Psychosis, Schizophrenia, Gallstones A1C 5.1 Meds include: Zyprexa, MV, Megace started 02/18/18 Feeding - Current PO Supplement Current Supplement: Ensure Enlive Current Frequency of Supplement: Three times a day Current kCals Provided by Supplement: 350 Current Protein Provided by Supplement: 20 Supplement Comments: Ensure Pudding BID(= 170 kcal and 4g protein per serving) - kCal Count Day 1 kCal Intake: 2,220 Day 1 Protein Intake: 135 Day 2 kCal Intake: 2,360 Day 2 Protein Intake: 129 Day 3 kCal Intake: 1,240 Day 3 Protein Intake: 90 kCal Comments: Day#3 w/2-meal slips collected and documented Assessment Assessment: Pt. follow-up for [facility] Calorie Count. Pt is edentulous, pureed diet per ST Recs. Calorie Count w/ADEQUATE po intake 100% for assessed needs, averaging 1940 kcal and 118g protein over 3-days. Continue Ensure Enlive TID. Continue Ensure Pudding BID. Wt noted to be stable. Dietitian to follow as needed. Recommendations: 1. Calorie Count w/ADEQUATE po intake 2. Continue Ensure Enlive TID 3. Continue Ensure Pudding BID 4. Dietitian to follow as needed
[2018-03-05] MEDS: Baclofen 10 MG Tablet PO SCH ×2 (13:22→21:26)
[2018-03-06] MEDS: Baclofen 10 MG Tablet PO SCH ×3 (06:00→21:00)
[2018-03-06] MEDS: Megestrol Acetate Liq 400 MG/10 ML UDC PO SCH (08:33)
[2018-03-06] MEDS: Heparin - SQ 10,000 UNITS/ML Vial SQ SCH ×2 (08:34→21:01)
[2018-03-06] MEDS: Sodium Chloride 0.9% 2 ML Flush BID IV.FLUSH SCH ×2 (08:35→21:01)
--- NOTE | 2018-03-06 09:58 | P.PNPSY ---
Subjective Remarks: Patient seen for follow-up, chart reviewed. Discussion with nursing staff reported that patient slept about 3 hours last evening but also noted to have slept mostly during the day yesterday but was able to be in hospital chair with assistance. Patient was found lying in hospital bed was able to be alert and acknowledged copywriter's presence but had some echolalia this morning was unable to answer any questions concretely. No behavioral disturbances irritability or agitation. Review of Systems All other systems reviewed negative except as stated in HPI Mental Status Examination Appearance: Appropriate Consciousness: Alert Motor Activity: Other (No motoric abnormalities noted) Speech: Incoherent, Speech impediment, Other (rambling at times) Language: Other (No longer with echolalia but rambling) Fund of Knowledge: Poor Attention and Concentration: Inadequate Memory: Impaired Mood: Other (Unable to assess due to patient's not engaging interview today.) Affect: Flat Thought Process & Associations: Other ([place]) Thought Content: Other (Difficult to assess due to thought disorganization) Hallucination Type: Other (Unable to assess due to patient's not engaging interview today.) Delusion Type: Other (unable to assess) Suicidal Ideation: No Suicidal Plan: No Suicidal Intention: No Homicidal Ideation: No Homicidal Plan: No Homicidal Intention: No Insight: Poor Judgment: Poor Assessment and Plan - Assessment (1) Unspecified psychosis Code(s): F29 - Unspecified psychosis not due to a substance or known physiological condition Status: Acute - Plan Plan: Patient continues with rambling but as per nursing report patient was more coherent speech and adequate conversation when patient speak to the over the phone. We will continue current treatment. Continue monitor mood and behavior. Treatment team continues to search for adequate residential facility which patient can be discharged to one-to-one as required. Patient continues to require assistance with ADLs.. Discharge planning in progress. Justification for Continued Inpatient Stay: At risk of further decompensation at lower level care.
[2018-03-07] MEDS: Baclofen 10 MG Tablet PO SCH ×4 (06:02→21:00)
--- NOTE | 2018-03-07 09:48 | P.PNPSY ---
Subjective Remarks: Patient seen in her room with nurse and with sitter. Chart reviewed, patient compliant medication. Patient lying quite still in bed she appears alert with eyes open though making very little eye contact with me and appears patient is selectively mute not speaking to me though the sitter states he is able to talk somewhat with her. With encouragement of the nurse patient made unintelligible grunting noises. For now continue treatment Review of Systems All other systems reviewed negative except as stated in HPI Mental Status Examination Appearance: Appropriate Consciousness: Alert Motor Activity: Other (No motoric abnormalities noted) Speech: Incoherent, Speech impediment, Other (rambling at times) Language: Other (No longer with echolalia but rambling) Fund of Knowledge: Poor Attention and Concentration: Inadequate Memory: Impaired Mood: Other (Unable to assess due to patient's not engaging interview today.) Affect: Flat Thought Process & Associations: Other ([place]) Thought Content: Other (Difficult to assess due to thought disorganization) Hallucination Type: Other (Unable to assess due to patient's not engaging interview today.) Delusion Type: Other (unable to assess) Suicidal Ideation: No Suicidal Plan: No Suicidal Intention: No Homicidal Ideation: No Homicidal Plan: No Homicidal Intention: No Insight: Poor Judgment: Poor Assessment and Plan - Assessment (1) Unspecified psychosis Code(s): F29 - Unspecified psychosis not due to a substance or known physiological condition Status: Acute - Plan Plan: Patient remained psychotic and appears confused and disorganized selectively mute with me Justification for Continued Inpatient Stay: At this time patient with decompensated placed in a lower level of care Discharge Planning: To be determined
[2018-03-07] MEDS: Heparin - SQ 10,000 UNITS/ML Vial SQ SCH ×2 (10:07→21:00)
[2018-03-07] MEDS: Megestrol Acetate Liq 400 MG/10 ML UDC PO SCH (10:10)
[2018-03-07] MEDS: Sodium Chloride 0.9% 2 ML Flush BID IV.FLUSH SCH ×2 (10:10→21:18)
[2018-03-08] MEDS: Baclofen 10 MG Tablet PO SCH ×3 (06:17→21:35)
[2018-03-08] MEDS: Heparin - SQ 10,000 UNITS/ML Vial SQ SCH ×2 (08:09→21:34)
[2018-03-08] MEDS: Megestrol Acetate Liq 400 MG/10 ML UDC PO SCH (10:20)
--- NOTE | 2018-03-08 16:14 | P.PNPSY ---
Subjective Remarks: Pt seen and discussed with staff. She remains psychotic with disorganized behavior. She has been more cooperative with medications and care, and has been resting better. No aggression/agitation Mental Status Examination Appearance: Appropriate (hospital gown) Consciousness: Alert Motor Activity: Other (no abnormalities noted) Speech: Incoherent, Speech impediment, Other (rambling at times) Language: Other (selectively mute at times, observed prior to interview loudly and bizarrely growling in a non aggressive manner) Fund of Knowledge: Poor Attention and Concentration: Inadequate Memory: Impaired Mood: Other ("fine" ) Affect: Flat Thought Process & Associations: Other ([place]) Thought Content: Bizarre thinking Hallucination Type: Other (appears internally stimulated) Delusion Type: Bizarre Suicidal Ideation: No Suicidal Plan: No Suicidal Intention: No Homicidal Ideation: No Homicidal Plan: No Homicidal Intention: No Insight: Poor Judgment: Poor Assessment and Plan - Assessment (1) Unspecified psychosis Code(s): F29 - Unspecified psychosis not due to a substance or known physiological condition Status: Acute - Plan Plan: Continue current tx plan Justification for Continued Inpatient Stay: psychosis
[2018-03-08] MEDS: Sodium Chloride 0.9% 2 ML Flush BID IV.FLUSH SCH ×2 (16:35→16:37)
[2018-03-09] MEDS: Sodium Chloride 0.9% 2 ML Flush BID IV.FLUSH SCH ×3 (00:17→20:35)
[2018-03-09] MEDS: Baclofen 10 MG Tablet PO SCH ×3 (00:18→22:58)
[2018-03-09] MEDS: Megestrol Acetate Liq 400 MG/10 ML UDC PO SCH (08:37)
[2018-03-09] MEDS: Heparin - SQ 10,000 UNITS/ML Vial SQ SCH ×2 (08:38→20:25)
--- NOTE | 2018-03-09 12:38 | P.TTN ---
- Patient Problems Problems: 1. Discharge planning 2. Medication compliance 3. Knowledge deficit 4. Lack of coping skills - Progress Toward Goals Provider Present: Dr. Erwin Cedillo Provider Input: 03/02/2018; per psychiatrist patient's mood is stable with some unpredicatable behavior, patient remain on 1:1 due to fall risk. 02/25/2018; No medication change, can be dc to placement when established. 02/23/2018; per doctor patient remain 1:1, medication compliant, no behavioral at this time. ; per doctor patient has unpredictable moods, medication is about normal range, no adjustments at this time. Nurse(s) Present: RN Nurse Input: 03/02/2018; patient mood is unpredictable, she is able to give appropriate responsive at select times, easily agitated, continues to require coaching and redirection. 02/25/2018; patient requires coaching and redirect with thought process, she continues to verbalize nonsensical thoughts with limited clarity. 02/23/2018; patient is compliant with treatment, still confused with disorganized behavior/thoughts, patient require assistance with basic needs including feeding and ADL's. Patient is loud, requirs 1:1, and rediction with behavior; assist with ADL's, and meals Psychiatric Counselors Present: Taryn Wiggins [facility] (03/09- Looking for placement. [facility] denied this patient. Will attempt to send patient back to previous [facility].) Psychiatric Therapist Input: 03/02/2018; counselor spoke with Gadiel from [facility], reports he is waiting feed back from his medical education manager due to standing order for Benadryl. According to Gadiel they do not give this medication, but he is trying to get it cleared since patient's behavior is improved with appropriate response. Group Spec/RT/OT/LOCKE Present: Atul Justin OT (03/09- Unable to tolerate groups) Group Spec/RT/OT/LOCKE Input: 03/02/2018; per OT patient is unable to participate with any activities at this time. 02/25/2018; per OT patient is unable to participate with activities. 02/23/2018; per OT patient is unable to participate with activities. 02/16/2018; per OT patient is unable to participate with activities at this time - Documentation Teaching Recipient: Patient
--- NOTE | 2018-03-09 14:16 | P.PNPSY ---
Subjective Remarks: Patient seen for follow-up, chart reviewed. Discussion with nursing staff reported that patient took her medications this morning no episodes of agitation or irritability like to for care by staff. Patient was found lying in hospital chair noted to have some more echolalia today although noted past per chart patient did not receive her medications last night. There is also reported the patient had poor sleep last evening as well. Patient was not able to engage in interview today noted to have repetition of on physical statements but also noted to have alertness of business writer's presence. Review of Systems All other systems reviewed negative except as stated in HPI Mental Status Examination Appearance: Appropriate Consciousness: Alert Motor Activity: Other (no abnormalities noted) Speech: Incoherent, Speech impediment, Other (rambling at times) Language: Other (selectively mute at times, at times loudly and bizarrely growling in a non aggressive manner) Fund of Knowledge: Poor Attention and Concentration: Inadequate Memory: Impaired Mood: Other ("fine" ) Affect: Flat Thought Process & Associations: Disorganized, Other ([place]) Thought Content: Bizarre thinking Hallucination Type: Other (appears internally stimulated) Delusion Type: Bizarre Suicidal Ideation: No Suicidal Plan: No Suicidal Intention: No Homicidal Ideation: No Homicidal Plan: No Homicidal Intention: No Insight: Poor Judgment: Poor Assessment and Plan - Assessment (1) Unspecified psychosis Code(s): F29 - Unspecified psychosis not due to a substance or known physiological condition Status: Acute - Plan Plan: Patient continues with echolalia and disorganization very concrete. Patient did not receive medication this evening noted with more disorganization echolalia today. Continue current treatment. Continue to monitor with behavior. Discharge planning in progress. Justification for Continued Inpatient Stay: At risk of further decompensation at lower level care.
[2018-03-10] MEDS: Heparin - SQ 10,000 UNITS/ML Vial SQ SCH ×2 (08:00→20:00)
[2018-03-10] MEDS: Sodium Chloride 0.9% 2 ML Flush BID IV.FLUSH SCH ×2 (11:48→20:10)
[2018-03-10] MEDS: Megestrol Acetate Liq 400 MG/10 ML UDC PO SCH (11:48)
[2018-03-10] MEDS: Baclofen 10 MG Tablet PO SCH ×3 (11:49→22:35)
--- NOTE | 2018-03-10 16:11 | P.PNPSY ---
Subjective Remarks: Patient has very limited interaction. She did speak to me a bit more than she has the one time in the past that I observed her with Dr. Cedillo. Patient was reviewed for necessity for continued care and found certainly in need. Continues with her perseveration: "It is just not right). Patient has been taking her medication without requirement of injection. There may be some slight improvement in her willingness to participate in her care. Mental Status Examination Appearance: Appropriate Consciousness: Alert Motor Activity: Other (no abnormalities noted) Speech: Incoherent, Speech impediment, Other (rambling at times; very limited most of the time) Language: Other (selectively mute at times, at times loudly and bizarrely growling in a non aggressive manner) Fund of Knowledge: Poor Attention and Concentration: Inadequate Memory: Impaired Mood: Other ("fine" ) Affect: Flat Thought Process & Associations: Disorganized, Other ([place]) Thought Content: Bizarre thinking Hallucination Type: Other (appears internally stimulated) Delusion Type: Bizarre Suicidal Ideation: No Suicidal Plan: No Suicidal Intention: No Homicidal Ideation: No Homicidal Plan: No Homicidal Intention: No Insight: Poor Judgment: Poor Assessment and Plan - Plan Plan: Current treatment plan is to be continued. Patient no longer appears to require one-to-one sitter so this will be discontinued. Justification for Continued Inpatient Stay: Inpatient treatment continues to be required, but there is some slight improvement with medication. - Attending Attestation Inpatient services and treatment continued to be necessary
[2018-03-10] MEDS: Acetaminophen 500 MG Tablet PO PRN (20:00)
[2018-03-11] MEDS: Baclofen 10 MG Tablet PO SCH ×3 (06:32→22:01)
[2018-03-11] MEDS: Heparin - SQ 10,000 UNITS/ML Vial SQ SCH ×2 (08:04→20:34)
[2018-03-11] MEDS: Megestrol Acetate Liq 400 MG/10 ML UDC PO SCH (08:04)
[2018-03-11] MEDS: Acetaminophen 500 MG Tablet PO PRN ×2 (08:05→20:32)
[2018-03-11] MEDS: Sodium Chloride 0.9% 2 ML Flush BID IV.FLUSH SCH ×2 (09:11→20:34)
--- NOTE | 2018-03-11 11:36 | P.PNPSY ---
Subjective Remarks: Patient seen for follow-up, chart reviewed. Discussion with nursing staff reported that patient continues with echolalia. Patient was found lying in hospital bed noted to have echolalia stating "can I get out of here" but whereupon interview was able to pause throughout questioning to ask concretely at times to some questions but continued with echolalia throughout interview as well. Patient also noted to have episodes of lucidity in the evening yesterday with more spontaneous speech and noted to be able to feed herself more independently. Review of Systems All other systems reviewed negative except as stated in HPI Mental Status Examination Appearance: Appropriate Consciousness: Alert Motor Activity: Other (no abnormalities noted) Speech: Incoherent, Speech impediment, Other (rambling at times; very limited most of the time) Language: Other (selectively mute at times, at times loudly and bizarrely growling in a non aggressive manner) Fund of Knowledge: Poor Attention and Concentration: Inadequate Memory: Impaired Mood: Other (Patient unable to express her mood) Affect: Flat Thought Process & Associations: Disorganized, Other ([place]) Thought Content: Bizarre thinking Hallucination Type: Other (appears internally stimulated) Delusion Type: Bizarre Suicidal Ideation: No Suicidal Plan: No Suicidal Intention: No Homicidal Ideation: No Homicidal Plan: No Homicidal Intention: No Insight: Poor Judgment: Poor Assessment and Plan - Assessment (1) Unspecified psychosis Code(s): F29 - Unspecified psychosis not due to a substance or known physiological condition Status: Acute - Plan Plan: Patient continues echolalia, noted to have improvement in nutritional intake as well as more independently activity such as feeding will continue to require assist for rest of ADLs. We will continue current treatment. Continue to monitor with behavior. Treatment team continues to search facility is willing to accept patient to discharge to residential facility discharge planning in progress. Justification for Continued Inpatient Stay: At risk of further decompensation at lower level care.
[2018-03-12] MEDS: Baclofen 10 MG Tablet PO SCH ×2 (06:08→23:04)
[2018-03-12] MEDS: Acetaminophen 500 MG Tablet PO PRN (08:45)
[2018-03-12] MEDS: Megestrol Acetate Liq 400 MG/10 ML UDC PO SCH (08:45)
--- NOTE | 2018-03-12 10:45 | P.PNPSY ---
Subjective Remarks: Patient seen for follow-up, chart reviewed. Discussion with nursing staff reported that patient took medications this morning, less rambling less echolalia today, slept well last night. Patient was found lying in hospital bed initially refusing to engage in interview although noted to be alert in my presence and reluctant to respond to any questioning. Patient was later seen and was more engaging in interview stating "I feel the same" but did not elaborate. Patient denies any physical complaints at this time. Patient was encouraged to participate more in some activities. Discussion of having patient be out of bed more to avoid pressure ulcers was reviewed with patient. Review of Systems All other systems reviewed negative except as stated in HPI Mental Status Examination Appearance: Appropriate Consciousness: Alert Motor Activity: Other (no abnormalities noted) Speech: Incoherent, Speech impediment, Other (rambling at times; very limited most of the time) Language: Other (selectively mute at times, at times loudly and bizarrely growling in a non aggressive manner) Fund of Knowledge: Poor Attention and Concentration: Inadequate Memory: Impaired Mood: Other (Patient unable to express her mood) Affect: Flat Thought Process & Associations: Disorganized (Less today), Other ([place]) Thought Content: Bizarre thinking Hallucination Type: Other (appears internally stimulated) Delusion Type: Bizarre Suicidal Ideation: No Suicidal Plan: No Suicidal Intention: No Homicidal Ideation: No Homicidal Plan: No Homicidal Intention: No Insight: Poor Judgment: Poor Assessment and Plan - Assessment (1) Unspecified psychosis Code(s): F29 - Unspecified psychosis not due to a substance or known physiological condition Status: Acute - Plan Plan: Patient will have occasional moments of appropriate engagement in conversation, no echolalia today. Patient was noted to be more alert with improved attention and concentration during interview despite minimal responses. We will continue current treatment. Continue to monitor mood and behavior. Continue to have patient out of bed as well as to continue physical therapy, continue to monitor for pressure ulcers. Discharge planning in progress. Justification for Continued Inpatient Stay: At risk of further decompensation at lower level care.
[2018-03-12] MEDS: Heparin - SQ 10,000 UNITS/ML Vial SQ SCH ×2 (12:13→20:37)
[2018-03-12] MEDS: Sodium Chloride 0.9% 2 ML Flush BID IV.FLUSH SCH ×2 (12:14→23:04)
[2018-03-13] MEDS: Megestrol Acetate Liq 400 MG/10 ML UDC PO SCH (08:38)
[2018-03-13] MEDS: Baclofen 10 MG Tablet PO SCH ×3 (08:40→22:10)
[2018-03-13] MEDS: Heparin - SQ 10,000 UNITS/ML Vial SQ SCH ×2 (08:40→20:38)
[2018-03-13] MEDS: Sodium Chloride 0.9% 2 ML Flush BID IV.FLUSH SCH (08:42)
--- NOTE | 2018-03-13 11:46 | P.PNPSY ---
Subjective Remarks: Patient was seen with nursing staff and records reviewed with staff. Patient was lying in the bed, refusing to speak. Patient has improved and that she is not taking her medications by mouth.. She ate all of her breakfast. Patient remains incontinent. As noted in Dr. Cedillo note patient is at risk for bed ulcers and specialty bed has been ordered. Staff reports that the echolalia has diminished. Patient does require physical therapy. She is awaiting placement. Mental Status Examination Appearance: Appropriate Consciousness: Alert Motor Activity: Other (no abnormalities noted) Speech: Incoherent, Speech impediment, Other (rambling at times; very limited most of the time) Language: Other (selectively mute at times, at times loudly and bizarrely growling in a non aggressive manner) Fund of Knowledge: Poor Attention and Concentration: Inadequate Memory: Impaired Mood: Other (Patient unable to express her mood) Affect: Flat Thought Process & Associations: Disorganized (Less today), Other ([place]) Thought Content: Bizarre thinking Hallucination Type: Other (appears internally stimulated) Delusion Type: Bizarre Suicidal Ideation: No Suicidal Plan: No Suicidal Intention: No Homicidal Ideation: No Homicidal Plan: No Homicidal Intention: No Insight: Poor Judgment: Poor Assessment and Plan - Assessment (1) Unspecified psychosis Code(s): F29 - Unspecified psychosis not due to a substance or known physiological condition Status: Acute - Plan Plan: Patient will have occasional moments of appropriate engagement in conversation, no echolalia today. Patient was noted to be more alert with improved attention and concentration during interview despite minimal responses. We will continue current treatment. Continue to monitor mood and behavior. Continue to have patient out of bed as well as to continue physical therapy, continue to monitor for pressure ulcers. Discharge planning in progress. March 13, 2018 Continue current treatment patient appears to be improving but still has periods of little or no response. Patient will continue to be encouraged to get out of bed. Physical therapy is to continue and monitoring for pressure ulcers. Justification for Continued Inpatient Stay: Patient remains psychotic requiring detention care as well as physical therapy. Discharge planning in place.
[2018-03-13] MEDS: Acetaminophen 500 MG Tablet PO PRN (17:01)
[2018-03-13] MEDS: Aluminum/Magnesium/Simethacone Susp 30 ML UDC PO PRN (17:01)
[2018-03-14] MEDS: Sodium Chloride 0.9% 2 ML Flush BID IV.FLUSH SCH ×3 (05:25→20:56)
[2018-03-14] MEDS: Baclofen 10 MG Tablet PO SCH ×3 (05:25→21:15)
[2018-03-14] MEDS: Heparin - SQ 10,000 UNITS/ML Vial SQ SCH ×2 (08:11→20:55)
[2018-03-14] MEDS: Megestrol Acetate Liq 400 MG/10 ML UDC PO SCH (08:13)
--- NOTE | 2018-03-14 12:54 | P.PNPSY ---
Subjective Remarks: Patient was seen and case discussed with nursing. Patient is alert and oriented x1. She is able to tell me she is feeling "okay." She is spending the day loudly yelling to herself. There is autolalia and echolalia. Review of Systems All other systems reviewed negative except as stated in HPI Mental Status Examination Appearance: Appropriate Consciousness: Alert Motor Activity: Other (no abnormalities noted) Speech: Incoherent, Speech impediment, Other (rambling at times; very limited most of the time) Language: Neologism, Other (selectively mute at times, at times loudly and bizarrely growling in a non aggressive manner) Fund of Knowledge: Poor Attention and Concentration: Inadequate Memory: Impaired Mood: Other (Patient unable to express her mood) Affect: Flat Thought Process & Associations: Disorganized (Less today), Other ([place]) Thought Content: Bizarre thinking Hallucination Type: Other (appears internally stimulated) Delusion Type: Bizarre Suicidal Ideation: No Suicidal Plan: No Suicidal Intention: No Homicidal Ideation: No Homicidal Plan: No Homicidal Intention: No Insight: Poor Judgment: Poor Assessment and Plan - Assessment (1) Unspecified psychosis Code(s): F29 - Unspecified psychosis not due to a substance or known physiological condition Status: Acute - Plan Plan: Continue current treatment plan Justification for Continued Inpatient Stay: Patient would decompensate in a less restrictive setting
[2018-03-15] MEDS: Baclofen 10 MG Tablet PO SCH ×3 (05:37→21:08)
[2018-03-15] MEDS: Megestrol Acetate Liq 400 MG/10 ML UDC PO SCH (08:59)
[2018-03-15] MEDS: Heparin - SQ 10,000 UNITS/ML Vial SQ SCH ×2 (08:59→21:07)
[2018-03-15] MEDS: Sodium Chloride 0.9% 2 ML Flush BID IV.FLUSH SCH ×2 (09:00→21:49)
--- NOTE | 2018-03-15 16:47 | P.PNPSY ---
Subjective Remarks: Patient was seen and case discussed with nursing. Patient remains internally preoccupied spending her day repeating gibberish. She is oriented x1 and is able to tells me she feels good. Is able to name some objects shown to her in a magazine. She says goodbye on my way out. No EtOs was needed and behaving well in the unit Mental Status Examination Appearance: Appropriate Consciousness: Alert Motor Activity: Other (no abnormalities noted) Speech: Incoherent, Speech impediment, Other (rambling at times; very limited most of the time) Language: Neologism, Other (selectively mute at times, at times loudly and bizarrely growling in a non aggressive manner) Fund of Knowledge: Poor Attention and Concentration: Inadequate Memory: Impaired Mood: Other (Patient unable to express her mood) Affect: Flat Thought Process & Associations: Disorganized (Less today), Other ([place]) Thought Content: Bizarre thinking Hallucination Type: Other (appears internally stimulated) Delusion Type: Bizarre Suicidal Ideation: No Suicidal Plan: No Suicidal Intention: No Homicidal Ideation: No Homicidal Plan: No Homicidal Intention: No Insight: Poor Judgment: Poor Assessment and Plan - Assessment (1) Unspecified psychosis Code(s): F29 - Unspecified psychosis not due to a substance or known physiological condition Status: Acute - Plan Plan: Continue current treatment plan Justification for Continued Inpatient Stay: Patient would decompensate in a less restrictive setting
[2018-03-16] MEDS: Heparin - SQ 10,000 UNITS/ML Vial SQ SCH ×2 (08:38→21:00)
[2018-03-16] MEDS: Megestrol Acetate Liq 400 MG/10 ML UDC PO SCH (08:39)
[2018-03-16] MEDS: Sodium Chloride 0.9% 2 ML Flush BID IV.FLUSH SCH ×2 (08:39→21:00)
--- NOTE | 2018-03-16 11:52 | P.PNPSY ---
Subjective Chief Complaint: Psychosis Remarks: March 16, 2018 patient seen with the nursing staff chart reviewed and discussion of current treatment plan. According to nursing the patient is not screaming as much she takes her medication as directed without difficulty. She continues echolalia and is disorganized and disoriented to the point of not knowing her name. When asked if her name was Jelly she replied no. Patient is eating and others to complete her ADLs. If patient continues without change, consideration must be given to transfer to a retirement facility. Mental Status Examination Appearance: Appropriate Consciousness: Alert Motor Activity: Other (no abnormalities noted) Speech: Incoherent, Speech impediment, Other (rambling at times; very limited most of the time) Language: Other (selectively mute at times, at times loudly and bizarrely growling in an aggressive manner) Fund of Knowledge: Poor Attention and Concentration: Inadequate Memory: Impaired Mood: Other (Patient unable to express her mood) Affect: Flat Thought Process & Associations: Disorganized (Less today), Other ([place]) Thought Content: Bizarre thinking Hallucination Type: Other (appears internally stimulated) Delusion Type: Bizarre Suicidal Ideation: No Suicidal Plan: No Suicidal Intention: No Homicidal Ideation: No Homicidal Plan: No Homicidal Intention: No Insight: Poor Judgment: Poor Assessment and Plan - Assessment (1) Unspecified psychosis Code(s): F29 - Unspecified psychosis not due to a substance or known physiological condition Status: Acute - Plan Plan: Continue current treatment plan March 16, 2018: Continue current treatment plan Justification for Continued Inpatient Stay: March 16, 2018 patient continues unchanged but showing some decrease in her yelling and screaming. Patient cannot be managed in a less restrictive environment at this time.
[2018-03-16] MEDS: Baclofen 10 MG Tablet PO SCH ×2 (14:42→22:00)
[2018-03-17] MEDS: Baclofen 10 MG Tablet PO SCH ×2 (06:23→22:00)
[2018-03-17] MEDS: Megestrol Acetate Liq 400 MG/10 ML UDC PO SCH (08:09)
[2018-03-17] MEDS: Heparin - SQ 10,000 UNITS/ML Vial SQ SCH ×2 (08:09→21:00)
[2018-03-17] MEDS: Sodium Chloride 0.9% 2 ML Flush BID IV.FLUSH SCH (08:10)
--- NOTE | 2018-03-17 12:25 | P.PNPSY ---
Subjective Chief Complaint: Psychosis Remarks: March 17, 2018 Patient has been particularly vocal today with loud screaming repetitious unintelligible gruff deep guttural animal-like utterances. Chart reviewed and patient discussed with the nursing staff. There is no significant change. Discharge planning was discussed with oncology social worker. Remarkably, it is anticipated the patient will return home when her is capable of managing her care. At present he is suffering from need to adjust to the pain and limitation of motion associated with a knee replacement. Mental Status Examination Appearance: Appropriate Consciousness: Alert Motor Activity: Other (no abnormalities noted) Speech: Incoherent, Speech impediment, Other (rambling at times; very limited most of the time) Language: Other (selectively mute at times, at times loudly and bizarrely growling in an aggressive manner) Fund of Knowledge: Poor Attention and Concentration: Inadequate Memory: Impaired Mood: Other (Patient unable to express her mood) Affect: Flat Thought Process & Associations: Disorganized (Less today), Other ([place]) Thought Content: Bizarre thinking Hallucination Type: Other (appears internally stimulated) Delusion Type: Bizarre Suicidal Ideation: No Suicidal Plan: No Suicidal Intention: No Homicidal Ideation: No Homicidal Plan: No Homicidal Intention: No Insight: Poor Judgment: Poor Assessment and Plan - Assessment (1) Unspecified psychosis Code(s): F29 - Unspecified psychosis not due to a substance or known physiological condition Status: Acute - Plan Plan: Continue current treatment plan March 16, 2018: Continue current treatment plan Justification for Continued Inpatient Stay: Patient is at risk for serious decompensation in a less restrictive environment Discharge Planning: Discharge planning on hold awaiting the availability of placement possibly at home. Request Healthcare Surrogate/Guardian Advocate?: Yes
[2018-03-18] MEDS: Sodium Chloride 0.9% 2 ML Flush BID IV.FLUSH SCH ×3 (00:11→20:16)
[2018-03-18] MEDS: Baclofen 10 MG Tablet PO SCH ×3 (06:10→21:02)
[2018-03-18] MEDS: Megestrol Acetate Liq 400 MG/10 ML UDC PO SCH (09:10)
[2018-03-18] MEDS: Heparin - SQ 10,000 UNITS/ML Vial SQ SCH ×2 (09:10→20:17)
--- NOTE | 2018-03-18 14:41 | P.PNPSY ---
Subjective Chief Complaint: Psychosis Remarks: March 18, 2018 Subjective: Patient seen and chart reviewed patient was interviewed with the primary nurse. She was reading a magazine and calm. He has been screaming earlier but at this time she was calm more than his usual. Nurses report that the is recovering from cardiovascular surgery stent procedure and does not feel that he will be able in the near future to take care of the patient. The patient is unable to walk so she would require considerable lifting and moving about. Whether or not this could be accomplished with a visiting health care services something that can be explored with social work faculty member. Mental Status Examination Appearance: Appropriate Consciousness: Alert Motor Activity: Other (no abnormalities noted) Speech: Incoherent, Speech impediment, Other (rambling at times; very limited most of the time) Language: Other (selectively mute at times, at times loudly and bizarrely growling in an aggressive manner) Fund of Knowledge: Poor Attention and Concentration: Inadequate Memory: Impaired Mood: Other (Patient unable to express her mood) Affect: Flat Thought Process & Associations: Disorganized (Less today), Other ([place]) Thought Content: Bizarre thinking Hallucination Type: Other (appears internally stimulated) Delusion Type: Bizarre Suicidal Ideation: No Suicidal Plan: No Suicidal Intention: No Homicidal Ideation: No Homicidal Plan: No Homicidal Intention: No Insight: Poor Judgment: Poor Assessment and Plan - Assessment (1) Unspecified psychosis Code(s): F29 - Unspecified psychosis not due to a substance or known physiological condition Status: Acute - Plan Plan: Continue current treatment plan March 16, 2018: Continue current treatment plan Justification for Continued Inpatient Stay: Patient cannot be adequately cared for at home and discharge placement is not available currently. Request Healthcare Surrogate/Guardian Advocate?: Yes
--- NOTE | 2018-03-18 15:00 | P.TTN ---
- Patient Problems Problems: 1. Discharge planning 2. Medication compliance 3. Knowledge deficit 4. Lack of coping skills - Progress Toward Goals Provider Present: Dr. Erwin Cedillo, Other Provider Input: 03/17/2018; patient continues to show minimum mood improvement with toleration. 03/11/18 She has lucid moments such as last night. At times she can understand. 03/02/2018; per psychiatrist patient's mood is stable with some unpredicatable behavior, patient remain on 1:1 due to fall risk. 2017; No medication change, can be dc to placement when established. 02/23/2018 ; per doctor patient remain 1:1, medication compliant, no behavioral at this time. 02/16/2018; per doctor patient has unpredictable moods, medication is about normal range, no adjustments at this time. Nurse(s) Present: RN Nurse Input: 03/17/2018; Per RN patient's mood and behavior is unpredictable, require redirection and assistance with basic needs. 03/11/18 Still remains unpredictable, easily agitated. Lucid moments which she appears to understand. Constant talking. 03/02/2018; patient mood is unpredictable, she is able to give appropriate responsive at select times, easily agitated, continues to require coaching and redirection. 02/25/2018; patient requires coaching and redirect with thought process, she continues to verbalize nonsensical thoughts with limited clarity. 02/23/2018; patient is compliant with treatment, still confused with disorganized behavior/thoughts, patient require assistance with basic needs including feeding and ADL's. Patient is loud, requirs 1:1, and rediction with behavior; assist with ADL's, and meals Psychiatric Counselors Present: Taryn Wiggins [facility] (03/09- Looking for placement. [facility] denied this patient. Will attempt to send patient back to previous [facility].) Psychiatric Therapist Input: 03/17/2018; patient is a placement issue, counselor alone with the DC meeting planner will continue searching for skill prison. 03/11/18 [place] may be a possibility for her. Her says he wants her back home but is going in for surgery himself. It is not a possibility as this has already been tried. Placement is difficult. 03/02/2018 ; counselor spoke with Gadiel from [facility], reports he is waiting feed back from his medical coding instructor due to standing order for Benadryl. According to Gadiel they do not give this medication, but he is trying to get it cleared since patient's behavior is improved with appropriate response. Group Spec/RT/OT/LOCKE Present: Atul Justin OT (03/09- Unable to tolerate groups) Group Spec/RT/OT/LOCKE Input: 03/17/2018; patient is unable to participate with activities she lacks insight and or ability to do so. 03/11/18 Unable to participate in any activities. 03/02/2018; per OT patient is unable to participate with any activities at this time. 02/25/2018; per OT patient is unable to participate with activities. 02/23/2018; per OT patient is unable to participate with activities. 02/16/2018; per OT patient is unable to participate with activities at this time - Documentation Teaching Recipient: Patient
[2018-03-19] MEDS: Baclofen 10 MG Tablet PO SCH ×3 (05:22→21:21)
[2018-03-19] MEDS: Heparin - SQ 10,000 UNITS/ML Vial SQ SCH ×2 (08:07→21:23)
[2018-03-19] MEDS: Sodium Chloride 0.9% 2 ML Flush BID IV.FLUSH SCH ×2 (08:07→21:23)
[2018-03-19] MEDS: Megestrol Acetate Liq 400 MG/10 ML UDC PO SCH (08:07)
--- NOTE | 2018-03-19 13:23 | P.PNPSY ---
Subjective Chief Complaint: Psychosis Remarks: March 19, 2018 Subjective: The patient was screaming her loud guttural scream this morning when in the [place] awaiting her hearing. Remarkably, the patient did respond when addressed by the federal judge, but answers only one question. He was taken back to the floor after the hearing but seemed to have understood the process. Mental Status Examination Appearance: Appropriate Consciousness: Alert Orientation: Person Motor Activity: Other (no abnormalities noted) Speech: Incoherent, Speech impediment, Other (rambling at times; very limited most of the time) Language: Other (selectively mute at times, at times loudly and bizarrely growling in an aggressive manner) Fund of Knowledge: Poor Attention and Concentration: Inadequate Memory: Impaired Mood: Other (Patient unable to express her mood) Affect: Flat Thought Process & Associations: Disorganized (Less today), Other ([place]) Thought Content: Bizarre thinking Hallucination Type: Other (appears internally stimulated) Delusion Type: Bizarre Suicidal Ideation: No Suicidal Plan: No Suicidal Intention: No Homicidal Ideation: No Homicidal Plan: No Homicidal Intention: No Insight: Poor Judgment: Poor Assessment and Plan - Assessment (1) Unspecified psychosis Code(s): F29 - Unspecified psychosis not due to a substance or known physiological condition Status: Acute - Plan Plan: Continue current treatment plan March 16, 2018: Continue current treatment plan. March 19, 2018 no changes in the current condition Justification for Continued Inpatient Stay: Patient is at risk for decompensation in a less intense treatment environment Request Healthcare Surrogate/Guardian Advocate?: Yes
[2018-03-19] MEDS: Acetaminophen 500 MG Tablet PO PRN (21:33)
[2018-03-20] MEDS: Baclofen 10 MG Tablet PO SCH ×4 (09:36→21:52)
[2018-03-20] MEDS: Megestrol Acetate Liq 400 MG/10 ML UDC PO SCH (09:38)
[2018-03-20] MEDS: Heparin - SQ 10,000 UNITS/ML Vial SQ SCH ×2 (09:39→21:52)
[2018-03-20] MEDS: Sodium Chloride 0.9% 2 ML Flush BID IV.FLUSH SCH ×2 (09:42→22:54)
--- NOTE | 2018-03-20 10:13 | P.PNPSY ---
Subjective Chief Complaint: Psychosis Remarks: March 20, 2018 Subjective: Patient is not responding to questions today she was interviewed [id number] and with her RN present who feels patient might need to be transferred to [facility], since there does not appear to be any real change since her admission. Mental Status Examination Appearance: Appropriate Consciousness: Alert Orientation: Person Motor Activity: Other (no abnormalities noted) Speech: Incoherent, Speech impediment, Other (rambling at times; very limited most of the time) Language: Other (selectively mute at times, at times loudly and bizarrely growling in an aggressive manner) Fund of Knowledge: Poor Attention and Concentration: Inadequate Memory: Impaired Mood: Other (Patient unable to express her mood) Affect: Flat Thought Process & Associations: Disorganized (Less today), Other ([place]) Thought Content: Bizarre thinking Hallucination Type: Other (appears internally stimulated) Delusion Type: Bizarre Suicidal Ideation: No Suicidal Plan: No Suicidal Intention: No Homicidal Ideation: No Homicidal Plan: No Homicidal Intention: No Insight: Poor Judgment: Poor Assessment and Plan - Assessment (1) Unspecified psychosis Code(s): F29 - Unspecified psychosis not due to a substance or known physiological condition Status: Acute - Plan Plan: Continue current treatment plan March 16, 2018: Continue current treatment plan. March 19, 2018 no changes in the current condition March 20, 2018 consider transfer to lower level of care. All conference with Dr. Cedillo when he returns on Friday to be sure he is in agreement with this plan. Justification for Continued Inpatient Stay: Patient needs discharge planning to assure that she is able to be cared for and a less restrictive environment. Request Healthcare Surrogate/Guardian Advocate?: Yes
[2018-03-20] MEDS: Acetaminophen 500 MG Tablet PO PRN (21:58)
[2018-03-21] MEDS: Baclofen 10 MG Tablet PO SCH ×3 (06:02→21:09)
[2018-03-21] MEDS: Megestrol Acetate Liq 400 MG/10 ML UDC PO SCH (09:12)
[2018-03-21] MEDS: Sodium Chloride 0.9% 2 ML Flush BID IV.FLUSH SCH ×2 (09:12→21:10)
[2018-03-21] MEDS: Heparin - SQ 10,000 UNITS/ML Vial SQ SCH ×2 (09:12→21:09)
--- NOTE | 2018-03-21 14:48 | P.PNPSY ---
Subjective Chief Complaint: Psychosis Remarks: Patient was seen and case discussed with nursing. Patient is pleasant and cooperative with exam. She remains oriented x1 and floridly psychotic with prominent echolalia. Compliant with medications. No agitation or outbursts Review of Systems All other systems reviewed negative except as stated in HPI Mental Status Examination Appearance: Appropriate Consciousness: Alert Orientation: Person Motor Activity: Other (no abnormalities noted) Speech: Incoherent, Speech impediment, Other (rambling at times; very limited most of the time) Language: Other (selectively mute at times, at times loudly and bizarrely growling in an aggressive manner) Fund of Knowledge: Poor Attention and Concentration: Inadequate Memory: Impaired Mood: Other (Patient unable to express her mood) Affect: Flat Thought Process & Associations: Disorganized (Less today), Other ([place]) Thought Content: Bizarre thinking Hallucination Type: Other (appears internally stimulated) Delusion Type: Bizarre Suicidal Ideation: No Suicidal Plan: No Suicidal Intention: No Homicidal Ideation: No Homicidal Plan: No Homicidal Intention: No Insight: Poor Judgment: Poor Assessment and Plan - Assessment (1) Unspecified psychosis Code(s): F29 - Unspecified psychosis not due to a substance or known physiological condition Status: Acute - Plan Plan: Continue current treatment plan Justification for Continued Inpatient Stay: Patient would decompensate in a less restrictive setting Request Healthcare Surrogate/Guardian Advocate?: Yes
[2018-03-22] MEDS: Baclofen 10 MG Tablet PO SCH ×2 (06:32→14:55)
[2018-03-22] MEDS: Heparin - SQ 10,000 UNITS/ML Vial SQ SCH ×2 (08:36→20:16)
[2018-03-22] MEDS: Megestrol Acetate Liq 400 MG/10 ML UDC PO SCH (08:37)
[2018-03-22] MEDS: Sodium Chloride 0.9% 2 ML Flush BID IV.FLUSH SCH ×2 (08:37→20:39)
--- NOTE | 2018-03-22 13:48 | P.PNPSY ---
Subjective Chief Complaint: Psychosis Remarks: Patient was seen and case discussed with nursing. Patient remains internally preoccupied and minimally cooperative. Compliant with medications. No outbursts Review of Systems All other systems reviewed negative except as stated in HPI Mental Status Examination Appearance: Appropriate Consciousness: Alert Orientation: Person Motor Activity: Other (no abnormalities noted) Speech: Incoherent, Speech impediment, Other (rambling at times; very limited most of the time) Language: Other (selectively mute at times, at times loudly and bizarrely growling in an aggressive manner) Fund of Knowledge: Poor Attention and Concentration: Inadequate Memory: Impaired Mood: Other (Patient unable to express her mood) Affect: Flat Thought Process & Associations: Disorganized (Less today), Other ([place]) Thought Content: Bizarre thinking Hallucination Type: Other (appears internally stimulated) Delusion Type: Bizarre Suicidal Ideation: No Suicidal Plan: No Suicidal Intention: No Homicidal Ideation: No Homicidal Plan: No Homicidal Intention: No Insight: Poor Judgment: Poor Assessment and Plan - Assessment (1) Unspecified psychosis Code(s): F29 - Unspecified psychosis not due to a substance or known physiological condition Status: Acute - Plan Plan: Continue current treatment plan Justification for Continued Inpatient Stay: Patient would decompensate in a less restrictive setting Request Healthcare Surrogate/Guardian Advocate?: Yes
[2018-03-23] MEDS: Baclofen 10 MG Tablet PO SCH ×4 (01:33→22:04)
[2018-03-23] MEDS: Sodium Chloride 0.9% 2 ML Flush BID IV.FLUSH SCH ×2 (08:46→22:04)
[2018-03-23] MEDS: Megestrol Acetate Liq 400 MG/10 ML UDC PO SCH (08:46)
[2018-03-23] MEDS: Heparin - SQ 10,000 UNITS/ML Vial SQ SCH ×2 (08:46→20:01)
--- NOTE | 2018-03-23 11:23 | P.PNPSY ---
Subjective Chief Complaint: Psychosis Remarks: March 23, 2018 Subjective: Patient unchanged patient was reviewed with the nurse records reviewed consult record reviewed. Patient was interviewed today she is not responding to questions. Mental Status Examination Appearance: Appropriate Consciousness: Alert Orientation: Person Motor Activity: Other (no abnormalities noted) Speech: Incoherent, Speech impediment, Other (rambling at times; very limited most of the time) Language: Other (selectively mute at times, at times loudly and bizarrely growling in an aggressive manner) Fund of Knowledge: Poor Attention and Concentration: Inadequate Memory: Impaired Mood: Other (Patient unable to express her mood) Affect: Flat Thought Process & Associations: Disorganized (Less today), Other ([place]) Thought Content: Bizarre thinking Hallucination Type: Other (appears internally stimulated) Delusion Type: Bizarre Suicidal Ideation: No Suicidal Plan: No Suicidal Intention: No Homicidal Ideation: No Homicidal Plan: No Homicidal Intention: No Insight: Poor Judgment: Poor Assessment and Plan - Assessment (1) Unspecified psychosis Code(s): F29 - Unspecified psychosis not due to a substance or known physiological condition Status: Acute - Plan Plan: Continue current treatment plan Justification for Continued Inpatient Stay: It is possible patient will deteriorate further in a less structured environment. Consideration will be given, however, for the possibility of transfer to rehab facility. Request Healthcare Surrogate/Guardian Advocate?: Yes
[2018-03-24] MEDS: Baclofen 10 MG Tablet PO SCH ×4 (01:21→21:45)
[2018-03-24] MEDS: Heparin - SQ 10,000 UNITS/ML Vial SQ SCH ×2 (09:14→20:22)
[2018-03-24] MEDS: Sodium Chloride 0.9% 2 ML Flush BID IV.FLUSH SCH ×2 (09:15→20:23)
[2018-03-24] MEDS: Megestrol Acetate Liq 400 MG/10 ML UDC PO SCH (09:15)
--- NOTE | 2018-03-24 11:19 | P.PNPSY ---
Subjective Chief Complaint: Psychosis Remarks: March 24, 2018 Subjective: Patient is not improved today the echolalia and perseverative grunts and groans and screaming out continue adipate is not noted yesterday. Patient was able to tell me she wanted a nurse but only has an answer to my opposing the question. Mental Status Examination Appearance: Appropriate Consciousness: Alert Orientation: Person Motor Activity: Other (no abnormalities noted) Speech: Incoherent, Speech impediment, Other (rambling at times; very limited most of the time) Language: Other (selectively mute at times, at times loudly and bizarrely growling in an aggressive manner) Fund of Knowledge: Poor Attention and Concentration: Inadequate Memory: Impaired Mood: Other (Patient unable to express her mood) Affect: Flat Thought Process & Associations: Disorganized (Less today), Other ([place]) Thought Content: Bizarre thinking Hallucination Type: Other (appears internally stimulated) Delusion Type: Bizarre Suicidal Ideation: No Suicidal Plan: No Suicidal Intention: No Homicidal Ideation: No Homicidal Plan: No Homicidal Intention: No Insight: Poor Judgment: Poor Assessment and Plan - Assessment (1) Unspecified psychosis Code(s): F29 - Unspecified psychosis not due to a substance or known physiological condition Status: Acute - Plan Plan: Continue current treatment plan Justification for Continued Inpatient Stay: March 24, 2018 Patient shows no real improvement. She is at risk for neglect and possible further deterioration with the current level of inpatient treatment. Request Healthcare Surrogate/Guardian Advocate?: Yes
--- NOTE | 2018-03-24 11:21 | P.PNPSY ---
Subjective Chief Complaint: Psychosis Remarks: Psychosis Mental Status Examination Appearance: Appropriate Consciousness: Alert Orientation: Person Motor Activity: Other (no abnormalities noted) Speech: Incoherent, Speech impediment, Other (rambling at times; very limited most of the time) Language: Other (selectively mute at times, at times loudly and bizarrely growling in an aggressive manner) Fund of Knowledge: Poor Attention and Concentration: Inadequate Memory: Impaired Mood: Other (Patient unable to express her mood) Affect: Flat Thought Process & Associations: Disorganized (Less today), Other ([place]) Thought Content: Bizarre thinking Hallucination Type: Other (appears internally stimulated) Delusion Type: Bizarre Suicidal Ideation: No Suicidal Plan: No Suicidal Intention: No Homicidal Ideation: No Homicidal Plan: No Homicidal Intention: No Insight: Poor Judgment: Poor Assessment and Plan - Assessment (1) Unspecified psychosis Code(s): F29 - Unspecified psychosis not due to a substance or known physiological condition Status: Acute - Plan Plan: Continue current treatment plan Justification for Continued Inpatient Stay: This is a duplicate note Request Healthcare Surrogate/Guardian Advocate?: Yes
[2018-03-25] MEDS: Baclofen 10 MG Tablet PO SCH ×3 (06:56→22:00)
[2018-03-25] MEDS: Megestrol Acetate Liq 400 MG/10 ML UDC PO SCH (09:00)
[2018-03-25] MEDS: Heparin - SQ 10,000 UNITS/ML Vial SQ SCH ×2 (09:02→21:02)
[2018-03-25] MEDS: Sodium Chloride 0.9% 2 ML Flush BID IV.FLUSH SCH ×2 (09:03→21:02)
--- NOTE | 2018-03-25 10:46 | P.PNPSY ---
Subjective Chief Complaint: Psychosis Remarks: March 25, 2018 Subjective: Patient remains pretty much the same although today she is somewhat more cooperative with her breakfast and with medication according to the record and the nurse assigned to her care. Patient does not have her dentures because the family believes that they might lost. It is my feeling that the patient has reached baseline and consideration for follow-up care and hospice or a group home home should be considered. Mental Status Examination Appearance: Appropriate (No significant changes as of 03/25/2018) Consciousness: Alert Orientation: Person Motor Activity: Other (no abnormalities noted) Speech: Incoherent, Speech impediment, Other (rambling at times; very limited most of the time) Language: Other (selectively mute at times, at times loudly and bizarrely growling in an aggressive manner) Fund of Knowledge: Poor Attention and Concentration: Inadequate Memory: Impaired Mood: Other (Patient unable to express her mood) Affect: Flat Thought Process & Associations: Disorganized (Less today), Other ([place]) Thought Content: Bizarre thinking Hallucination Type: Other (appears internally stimulated) Delusion Type: Bizarre Suicidal Ideation: No Suicidal Plan: No Suicidal Intention: No Homicidal Ideation: No Homicidal Plan: No Homicidal Intention: No Insight: Poor Judgment: Poor Assessment and Plan - Assessment (1) Unspecified psychosis Code(s): F29 - Unspecified psychosis not due to a substance or known physiological condition Status: Acute - Plan Plan: Continue current treatment plan March 25, 2018: Consider transfer to group home home or hospice. Justification for Continued Inpatient Stay: March 25, 2018 Patient has shown no significant changes and must be considered for a lower level of care once one is available. Request Healthcare Surrogate/Guardian Advocate?: Yes
[2018-03-26] MEDS: Megestrol Acetate Liq 400 MG/10 ML UDC PO SCH (08:17)
[2018-03-26] MEDS: Sodium Chloride 0.9% 2 ML Flush BID IV.FLUSH SCH ×2 (08:18→20:45)
[2018-03-26] MEDS: Baclofen 10 MG Tablet PO SCH ×3 (08:18→20:59)
[2018-03-26] MEDS: Heparin - SQ 10,000 UNITS/ML Vial SQ SCH ×2 (08:19→20:59)
--- NOTE | 2018-03-26 14:59 | P.PNPSY ---
Subjective Chief Complaint: Psychosis Remarks: March 27, 2018 Subjective: Patient seen and case discussed with the nursing staff. Patient is shouting and perseverative echolalic screams again today. Mental Status Examination Appearance: Appropriate (No significant changes as of 03/25/2018) Consciousness: Alert Orientation: Person Motor Activity: Other (no abnormalities noted) Speech: Incoherent, Speech impediment, Other (rambling at times; very limited most of the time) Language: Other (selectively mute at times, at times loudly and bizarrely growling in an aggressive manner) Fund of Knowledge: Poor Attention and Concentration: Inadequate Memory: Impaired Mood: Other (Patient unable to express her mood) Affect: Flat Thought Process & Associations: Disorganized (Less today), Other ([place]) Thought Content: Bizarre thinking Hallucination Type: Other (appears internally stimulated) Delusion Type: Bizarre Suicidal Ideation: No Suicidal Plan: No Suicidal Intention: No Homicidal Ideation: No Homicidal Plan: No Homicidal Intention: No Insight: Poor Judgment: Poor Assessment and Plan - Assessment (1) Unspecified psychosis Code(s): F29 - Unspecified psychosis not due to a substance or known physiological condition Status: Acute - Plan Plan: Continue current treatment plan March 25, 2018: Consider transfer to nursing home home or hospice. Justification for Continued Inpatient Stay: Patient would decompensate if not continued in her current inpatient admission. Request Healthcare Surrogate/Guardian Advocate?: Yes
[2018-03-27] MEDS: Baclofen 10 MG Tablet PO SCH ×3 (05:10→21:21)
[2018-03-27] MEDS: Sodium Chloride 0.9% 2 ML Flush BID IV.FLUSH SCH ×2 (09:42→21:21)
[2018-03-27] MEDS: Heparin - SQ 10,000 UNITS/ML Vial SQ SCH ×2 (09:42→21:21)
[2018-03-27] MEDS: Megestrol Acetate Liq 400 MG/10 ML UDC PO SCH (09:42)
--- NOTE | 2018-03-27 13:34 | P.PNPSY ---
Subjective Chief Complaint: Psychosis Remarks: March 27, 2018 Subjective: Patient is alert and vigilant, she is crying out loud guttural repetitious sound discussed with staff nurse as well as the patient's physical therapy asst. Patient is responsive only to food. Very difficult to get her to move without that inducement. Mental Status Examination Appearance: Appropriate (No significant changes as of 03/25/2018) Consciousness: Alert Orientation: Person Motor Activity: Other (no abnormalities noted) Speech: Incoherent, Speech impediment, Other (rambling at times; very limited most of the time) Language: Other (selectively mute at times, at times loudly and bizarrely growling in an aggressive manner) Fund of Knowledge: Poor Attention and Concentration: Inadequate Memory: Impaired Mood: Other (Patient unable to express her mood) Affect: Flat Thought Process & Associations: Disorganized (Less today), Other ([place]) Thought Content: Bizarre thinking Hallucination Type: Other (appears internally stimulated) Delusion Type: Bizarre Suicidal Ideation: No Suicidal Plan: No Suicidal Intention: No Homicidal Ideation: No Homicidal Plan: No Homicidal Intention: No Insight: Poor Judgment: Poor Assessment and Plan - Assessment (1) Unspecified psychosis Code(s): F29 - Unspecified psychosis not due to a substance or known physiological condition Status: Acute - Plan Plan: Continue current treatment plan March 25, 2018: Consider transfer to half-way home or hospice. March 27, 2018 consider and research use of both gabapentin and/or L-dopa. There does seem to be a component of depression that is not responding to current medications and the repetitive nature of the patient's utterances might respond to clomipramine. Justification for Continued Inpatient Stay: March 27, 2018 Patient may respond to some alternate therapies that have not yet been tried. Because of the lack of communication it is difficult to know what the patient might be experiencing. Request Healthcare Surrogate/Guardian Advocate?: Yes
[2018-03-28] MEDS: Baclofen 10 MG Tablet PO SCH ×3 (06:08→22:26)
[2018-03-28] MEDS: Heparin - SQ 10,000 UNITS/ML Vial SQ SCH ×2 (08:25→20:56)
[2018-03-28] MEDS: Megestrol Acetate Liq 400 MG/10 ML UDC PO SCH (09:10)
[2018-03-28] MEDS: Sodium Chloride 0.9% 2 ML Flush BID IV.FLUSH SCH ×2 (09:26→21:00)
--- NOTE | 2018-03-28 18:53 | P.PNPSY ---
Subjective Chief Complaint: Psychosis Remarks: Reviewed electronic medical records and discussed case with staff. Follow-up was conducted in the patient's room with GATO Duffy present. Her nurse reports that she has had rare moments of lucidity but remains diffusely confused in general. She reports that she has been eating well. Patient is found lying in the bed when asked if she is Jelly she responds, "I do not know". When asked how she feels she responds "I do not know". When asked if she had a good appetite she responds with, "yeah". She then goes on to state, "this ain't right". Her nurse reports that she repeats this on and on throughout the day. Mental Status Examination Appearance: Appropriate (No significant changes as of 03/25/2018) Consciousness: Alert Orientation: Person Motor Activity: Other (no abnormalities noted) Speech: Incoherent, Speech impediment, Other (rambling at times; very limited most of the time) Language: Other (selectively mute at times, at times loudly and bizarrely growling in an aggressive manner) Fund of Knowledge: Poor Attention and Concentration: Inadequate Memory: Impaired Mood: Other (Patient unable to express her mood) Affect: Flat Thought Process & Associations: Disorganized (Less today), Other ([place]) Thought Content: Bizarre thinking Hallucination Type: Other (appears internally stimulated) Delusion Type: Bizarre Suicidal Ideation: No Suicidal Plan: No Suicidal Intention: No Homicidal Ideation: No Homicidal Plan: No Homicidal Intention: No Insight: Poor Judgment: Poor Assessment and Plan - Assessment (1) Unspecified psychosis Code(s): F29 - Unspecified psychosis not due to a substance or known physiological condition Status: Acute - Plan Plan: Patient will be reevaluated by the attending psychiatrist. Continue with current treatment plan. Justification for Continued Inpatient Stay: Moving this patient to a less restrictive environment would likely result in decompensation. Request Healthcare Surrogate/Guardian Advocate?: Yes
[2018-03-29] MEDS: Baclofen 10 MG Tablet PO SCH ×3 (05:52→21:48)
[2018-03-29] MEDS: Sodium Chloride 0.9% 2 ML Flush BID IV.FLUSH SCH (08:22)
[2018-03-29] MEDS: Megestrol Acetate Liq 400 MG/10 ML UDC PO SCH (08:22)
[2018-03-29] MEDS: Heparin - SQ 10,000 UNITS/ML Vial SQ SCH ×2 (08:22→21:48)
--- NOTE | 2018-03-29 20:17 | P.PNPSY ---
Subjective Chief Complaint: Psychosis Remarks: Reviewed electronic medical records and discussed case with staff. Follow-up was conducted in the patient's room with GATO Duffy present. Patient is found sitting up in bed watching television. She continues to be diffusely confused. She is oriented to name only. She continues to make repetitive vocalizations. Mental Status Examination Appearance: Appropriate (No significant changes as of 03/25/2018) Consciousness: Alert Orientation: Person Motor Activity: Other (no abnormalities noted) Speech: Incoherent, Speech impediment, Other (rambling at times; very limited most of the time) Language: Other (selectively mute at times, at times loudly and bizarrely growling in an aggressive manner) Fund of Knowledge: Poor Attention and Concentration: Inadequate Memory: Impaired Mood: Other (Patient unable to express her mood) Affect: Flat Thought Process & Associations: Disorganized (Less today), Other ([place]) Thought Content: Bizarre thinking Hallucination Type: Other (appears internally stimulated) Delusion Type: Bizarre Suicidal Ideation: No Suicidal Plan: No Suicidal Intention: No Homicidal Ideation: No Homicidal Plan: No Homicidal Intention: No Insight: Poor Judgment: Poor Assessment and Plan - Assessment (1) Unspecified psychosis Code(s): F29 - Unspecified psychosis not due to a substance or known physiological condition Status: Acute - Plan Plan: Patient will be reevaluated by the attending psychiatrist. Continue with current treatment plan. Justification for Continued Inpatient Stay: Moving this patient to a less restrictive environment would likely result in decompensation. Request Healthcare Surrogate/Guardian Advocate?: Yes
[2018-03-30] MEDS: Baclofen 10 MG Tablet PO SCH ×3 (07:00→22:31)
[2018-03-30] MEDS: Sodium Chloride 0.9% 2 ML Flush BID IV.FLUSH SCH ×3 (07:00→22:31)
[2018-03-30] MEDS: Heparin - SQ 10,000 UNITS/ML Vial SQ SCH ×2 (08:22→22:30)
[2018-03-30] MEDS: Megestrol Acetate Liq 400 MG/10 ML UDC PO SCH (08:22)
--- NOTE | 2018-03-30 08:43 | P.PNPSY ---
Subjective Chief Complaint: Psychosis Remarks: March 30, 2018 Subjective: Patient is as before. She was interviewed with the staff nurse present. The staff reports that patient has been pretty much the same but that her vocalizations seem to occur more often and her level of perturbation increases during the afternoon. It is noted in the electronic record that the patient did speak to the nurse practitioner who interviewed her on Friday. The remarks were very brief repetitions of answers to questions that she has responded to rarely in the past. It is the RNs impression is that this may be related to the patient's being given Benadryl with the 9 AM medications. Nursing will give the patient and afternoon dose of the Benadryl on a as needed basis to test this hypothesis. Mental Status Examination Appearance: Appropriate (No significant changes over the weekend.) Consciousness: Alert Orientation: Person Motor Activity: Other (no abnormalities noted) Speech: Incoherent, Speech impediment, Other (rambling at times; very limited most of the time) Language: Other (selectively mute at times, at times loudly and bizarrely growling in an aggressive manner) Fund of Knowledge: Poor Attention and Concentration: Inadequate Memory: Impaired Mood: Other (Patient unable to express her mood) Affect: Flat Thought Process & Associations: Disorganized (Less today), Other ([place]) Thought Content: Bizarre thinking Hallucination Type: Other (appears internally stimulated) Delusion Type: Bizarre Suicidal Ideation: No Suicidal Plan: No Suicidal Intention: No Homicidal Ideation: No Homicidal Plan: No Homicidal Intention: No Insight: Poor Judgment: Poor Assessment and Plan - Assessment (1) Unspecified psychosis Code(s): F29 - Unspecified psychosis not due to a substance or known physiological condition Status: Acute - Plan Plan: Patient will be reevaluated by the attending psychiatrist. Continue with current treatment plan. March 30, 2018 Will give as needed of Benadryl the afternoon, hoping this will relieve some of the patient's evening agitation. Justification for Continued Inpatient Stay: March 30, 2018 Without inpatient care patient is likely to decompensate further. Request Healthcare Surrogate/Guardian Advocate?: Yes
[2018-03-30] MEDS: Acetaminophen 500 MG Tablet PO PRN (22:30)
[2018-03-31] MEDS: Baclofen 10 MG Tablet PO SCH ×3 (06:25→21:39)
[2018-03-31] MEDS: Megestrol Acetate Liq 400 MG/10 ML UDC PO SCH (09:00)
[2018-03-31] MEDS: Heparin - SQ 10,000 UNITS/ML Vial SQ SCH ×2 (11:06→21:39)
[2018-03-31] MEDS: Sodium Chloride 0.9% 2 ML Flush BID IV.FLUSH SCH ×2 (11:06→21:48)
--- NOTE | 2018-03-31 12:28 | P.PNPSY ---
Subjective Chief Complaint: Psychosis Remarks: March 31, 2018 Subjective: Saw patient twice in the last time noted she was having the sitter feed her. When I told her that she was going to get any more breakfast until we talked she managed a few words but nothing that would help understand much she is going through. Patient was seen with the staff nurse and updates of her lack of progress noted. Mental Status Examination Appearance: Appropriate (No changes noted today March 31, 2018) Consciousness: Alert Orientation: Person Motor Activity: Other (no abnormalities noted) Speech: Incoherent, Speech impediment, Other (rambling at times; very limited most of the time) Language: Other (selectively mute at times, at times loudly and bizarrely growling in an aggressive manner) Fund of Knowledge: Poor Attention and Concentration: Inadequate Memory: Impaired Mood: Other (Patient unable to express her mood) Affect: Flat Thought Process & Associations: Disorganized (Less today), Other ([place]) Thought Content: Bizarre thinking Hallucination Type: Other (appears internally stimulated) Delusion Type: Bizarre Suicidal Ideation: No Suicidal Plan: No Suicidal Intention: No Homicidal Ideation: No Homicidal Plan: No Homicidal Intention: No Insight: Poor Judgment: Poor Assessment and Plan - Assessment (1) Unspecified psychosis Code(s): F29 - Unspecified psychosis not due to a substance or known physiological condition Status: Acute - Plan Plan: Patient will be reevaluated by the attending psychiatrist. Continue with current treatment plan. March 30, 2018 Will give as needed of Benadryl the afternoon, hoping this will relieve some of the patient's evening agitation. Justification for Continued Inpatient Stay: March 31, 2018 Would recommend patient be evaluated for transfer to either a fpc facility are possibly hospice. Request Healthcare Surrogate/Guardian Advocate?: Yes
[2018-04-01] MEDS: Baclofen 10 MG Tablet PO SCH ×3 (05:48→21:50)
[2018-04-01] MEDS: Megestrol Acetate Liq 400 MG/10 ML UDC PO SCH (08:55)
[2018-04-01] MEDS: Sodium Chloride 0.9% 2 ML Flush BID IV.FLUSH SCH ×2 (08:55→21:52)
[2018-04-01] MEDS: Heparin - SQ 10,000 UNITS/ML Vial SQ SCH ×2 (08:55→21:50)
--- NOTE | 2018-04-01 12:26 | P.PNPSY ---
Subjective Chief Complaint: Psychosis Remarks: April 01, 2018 Subjective: Patient appeared to have a rather stiff neck today and unable to bend her neck forward. She became upset when I attempted to bend her neck forward she complains and is unable to do so.. The patient had only recently had 25 mg of Benadryl which apparently made no difference. The as needed dosage was repeated. The patient almost always has her head back but perhaps not quite so much as today. It is also noted that the toes are pointed downward and patient complains if attempts are made to flex the foot on the ankle. Review of Systems Musculoskeletal: Reports limited joint movement Neurologic: Reports weakness (Very limited responses to ROS questions) Mental Status Examination Appearance: Appropriate (No changes noted today April 01, 2018) Consciousness: Alert Orientation: Person Motor Activity: Other (no abnormalities noted) Speech: Incoherent, Speech impediment, Other (rambling at times; very limited most of the time) Language: Other (selectively mute at times, at times loudly and bizarrely growling in an aggressive manner) Fund of Knowledge: Poor Attention and Concentration: Inadequate Memory: Impaired Mood: Other (Patient unable to express her mood) Affect: Flat Thought Process & Associations: Disorganized (Less today), Other ([place]) Thought Content: Bizarre thinking Hallucination Type: Other (appears internally stimulated) Delusion Type: Bizarre Suicidal Ideation: No Suicidal Plan: No Suicidal Intention: No Homicidal Ideation: No Homicidal Plan: No Homicidal Intention: No Insight: Poor Judgment: Poor Assessment and Plan - Assessment (1) Unspecified psychosis Code(s): F29 - Unspecified psychosis not due to a substance or known physiological condition Status: Acute - Plan Plan: Patient will be reevaluated by the attending psychiatrist. Continue with current treatment plan. March 30, 2018 Will give as needed: Benadryl the afternoon, hoping this will relieve some of the patient's evening agitation. March 31, 2018 Patient will be given additional as needed of Benadryl today and checked to see if this relieves some of this neck stiffness. Justification for Continued Inpatient Stay: April 01, 2018: Patient remains a placement problem and requires 24-hour usp care. Request Healthcare Surrogate/Guardian Advocate?: Yes
[2018-04-02] MEDS: Baclofen 10 MG Tablet PO SCH ×3 (05:38→23:02)
[2018-04-02] MEDS: Heparin - SQ 10,000 UNITS/ML Vial SQ SCH ×2 (08:11→22:16)
[2018-04-02] MEDS: Megestrol Acetate Liq 400 MG/10 ML UDC PO SCH (08:12)
[2018-04-02] MEDS: Acetaminophen 500 MG Tablet PO PRN ×2 (10:50→17:00)
[2018-04-02] MEDS: Sodium Chloride 0.9% 2 ML Flush BID IV.FLUSH SCH ×2 (11:04→22:17)
--- NOTE | 2018-04-02 12:13 | P.PNPSY ---
Subjective Chief Complaint: Psychosis Remarks: April 02, 2018 Patient seen [id number] with nurse present during the interview. Nurse reports there is little change in the patient although his observed that the patient's neck does not appear to be so stiff likely due to additional dosages of Benadryl. The patient is able to answer questions. I asked her about her previous hospitalization almost exactly a year ago. She did respond directly and logically but her speech would become so garbled that she was incoherent. Placement is planned at this time. Review of Systems April 02, 2018 Patient complains of feeling pain all over. Some of the patient's original complaints of difficulty swallowing coupled with her problems with vocalizations and planes of muscle pain and stiffness suggest the possibility of complex differential diagnosis includes Sicca syndrome, systemic sclerosis GERD and carcinoma of the larynx are of the esophagus.. Mental Status Examination Appearance: Appropriate (No changes noted today April 01, 2018) Consciousness: Alert Orientation: Person Motor Activity: Other (no abnormalities noted) Speech: Incoherent (Extreme hoarseness), Speech impediment, Other (rambling at times; very limited most of the time) Language: Other (selectively mute at times, at times loudly and bizarrely growling in an aggressive manner) Fund of Knowledge: Poor Attention and Concentration: Inadequate Memory: Impaired Mood: Other (Patient unable to express her mood) Affect: Flat Thought Process & Associations: Disorganized (Less today), Other ([place]) Thought Content: Bizarre thinking Hallucination Type: Other (appears internally stimulated) Delusion Type: Bizarre Suicidal Ideation: No Suicidal Plan: No Suicidal Intention: No Homicidal Ideation: No Homicidal Plan: No Homicidal Intention: No Insight: Poor Judgment: Poor Assessment and Plan - Assessment (1) Unspecified psychosis Code(s): F29 - Unspecified psychosis not due to a substance or known physiological condition Status: Acute - Plan Plan: Patient will be reevaluated by the attending psychiatrist. Continue with current treatment plan. March 30, 2018 Will give as needed: Benadryl the afternoon, hoping this will relieve some of the patient's evening agitation. March 31, 2018 Patient will be given additional as needed of Benadryl today and checked to see if this relieves some of this neck stiffness. April 02, 2018 Patient has rather extensive differential diagnosis associated with her vocalizations and former complaint there was noted and her admission here 1 year ago which was difficulty swallowing. The patient is at present being scheduled for placement outside the hospital where extensive workup would be recommended including laryngoscopy and esophagoscopy and possible muscle biopsies to rule out systemic sclerosis. Justification for Continued Inpatient Stay: April 02, 2018 Discharge planning is underway to place the patient in a half-way placement with recommendations for ENT and GI workups as noted in treatment plan. Request Healthcare Surrogate/Guardian Advocate?: Yes
[2018-04-03] MEDS: Baclofen 10 MG Tablet PO SCH ×3 (05:51→21:02)
[2018-04-03] MEDS: Heparin - SQ 10,000 UNITS/ML Vial SQ SCH ×2 (08:12→21:00)
[2018-04-03] MEDS: Megestrol Acetate Liq 400 MG/10 ML UDC PO SCH (08:12)
--- NOTE | 2018-04-03 08:33 | P.PNPSY ---
Subjective Chief Complaint: Psychosis Remarks: April 03, 2018 Subjective: Patient far more reactive and able to vocalize responses to questions. Asked her head she ever had tubes put down her throat or her stomach to and she responded that she had not. Patient does not seem preoccupied with internal stimuli so much as she is with seeking attention for discomfort. Review of Systems Patient continues to have difficulty with swallowing solid food and is on a soft diet. Her complaint of one year ago dysphasia to my knowledge and is evidenced by review of the record has never been worked up. There is no evidence of laryngoscopy to determine if there is a physical cause for her roughness. Patient denies heartburn or knowledge of a diagnosis of GERD Mental Status Examination Appearance: Appropriate Consciousness: Alert Orientation: Person Motor Activity: Other (no abnormalities noted) Speech: Speech impediment, Other (rambling at times; very limited most of the time) Language: Other (selectively mute at times, at times loudly and bizarrely growling in an aggressive manner) Fund of Knowledge: Poor Attention and Concentration: Inadequate Memory: Impaired Mood: Other (Patient unable to express her mood) Affect: Flat Thought Process & Associations: Disorganized (Less today), Other ([place]) Thought Content: Other (difficult to evaluate) Hallucination Type: Other (appears internally stimulated) Delusion Type: Bizarre (None expressed in this examination her reported by nursing staff) Suicidal Ideation: No Suicidal Plan: No Suicidal Intention: No Homicidal Ideation: No Homicidal Plan: No Homicidal Intention: No Insight: Poor Judgment: Poor Assessment and Plan - Assessment (1) Unspecified psychosis Code(s): F29 - Unspecified psychosis not due to a substance or known physiological condition Status: Acute - Plan Plan: Patient will be reevaluated by the attending psychiatrist. Continue with current treatment plan. March 30, 2018 Will give as needed: Benadryl the afternoon, hoping this will relieve some of the patient's evening agitation. March 31, 2018 Patient will be given additional as needed of Benadryl today and checked to see if this relieves some of this neck stiffness. April 02, 2018 Patient has rather extensive differential diagnosis associated with her vocalizations and former complaint there was noted and her admission here 1 year ago which was difficulty swallowing. The patient is at present being scheduled for placement outside the hospital where extensive workup would be recommended including laryngoscopy and esophagoscopy and possible muscle biopsies to rule out systemic sclerosis. April 03, 2018 Patient denies having GERD symptoms coincident with her difficulty swallowing. Plan would be for esophagoscopy and laryngoscopy as noted elsewhere. This could be accomplished once the patient is placed. Justification for Continued Inpatient Stay: April 03, 2018 Patient awaits placement. Given her status and level of need for care this is a difficult placement. Request Healthcare Surrogate/Guardian Advocate?: Yes
[2018-04-03] MEDS: Sodium Chloride 0.9% 2 ML Flush BID IV.FLUSH SCH ×2 (08:47→21:05)
[2018-04-04] MEDS: Baclofen 10 MG Tablet PO SCH ×3 (05:53→21:48)
[2018-04-04] MEDS: Heparin - SQ 10,000 UNITS/ML Vial SQ SCH ×2 (08:00→21:48)
[2018-04-04] MEDS: Megestrol Acetate Liq 400 MG/10 ML UDC PO SCH (08:01)
--- NOTE | 2018-04-04 09:45 | P.PNPSY ---
Subjective Chief Complaint: Psychosis Remarks: Prior to my seeing patient in her room with nurse Marquita patient was making nonsensical yelling noises that were heard all over the unit essentially constantly. When I went in the room with the patient she quieted down somewhat did make eye contact with me was able to respond to brief questions with a mumbled 1-2 word syllable answers. Though at times his answers seem to be goal oriented. Otherwise patient was taken medication no other behavioral problems noted Review of Systems All other systems reviewed negative except as stated in HPI Mental Status Examination Appearance: Appropriate Consciousness: Alert Orientation: Person Motor Activity: Other (no abnormalities noted) Speech: Speech impediment, Other (rambling at times; very limited most of the time) Language: Other (selectively mute at times, at times loudly and bizarrely growling in an aggressive manner) Fund of Knowledge: Poor Attention and Concentration: Inadequate Memory: Impaired Mood: Other (Patient unable to express her mood) Affect: Flat Thought Process & Associations: Disorganized (Less today), Other ([place]) Thought Content: Other (difficult to evaluate) Hallucination Type: Other (appears internally stimulated) Delusion Type: Bizarre (None expressed in this examination her reported by nursing staff) Suicidal Ideation: No Suicidal Plan: No Suicidal Intention: No Homicidal Ideation: No Homicidal Plan: No Homicidal Intention: No Insight: Poor Judgment: Poor Assessment and Plan - Assessment (1) Unspecified psychosis Code(s): F29 - Unspecified psychosis not due to a substance or known physiological condition Status: Acute - Plan Plan: Patient continues psychotic disorganized, compliant medication. For now continue treatment Justification for Continued Inpatient Stay: At this time patient with decompensated placed in a lower level of care Discharge Planning: To be determined Request Healthcare Surrogate/Guardian Advocate?: Yes
[2018-04-04] MEDS: Sodium Chloride 0.9% 2 ML Flush BID IV.FLUSH SCH ×2 (10:08→20:44)
[2018-04-05] MEDS: Baclofen 10 MG Tablet PO SCH ×3 (06:28→21:13)
[2018-04-05 06:32] VITALS: RESP 19
[2018-04-05] MEDS: Megestrol Acetate Liq 400 MG/10 ML UDC PO SCH (08:10)
[2018-04-05] MEDS: Heparin - SQ 10,000 UNITS/ML Vial SQ SCH ×2 (10:57→20:21)
[2018-04-05] MEDS: Sodium Chloride 0.9% 2 ML Flush BID IV.FLUSH SCH ×2 (10:57→20:25)
--- NOTE | 2018-04-05 14:14 | P.PNPSY ---
Subjective Chief Complaint: Psychosis Remarks: Patient was seen and case discussed with nursing. Patient continues with auto [place]. She has not had any agitated behavior. Is eating well. Continues to be internally preoccupied and psychotic Review of Systems All other systems reviewed negative except as stated in HPI Mental Status Examination Appearance: Appropriate Consciousness: Alert Orientation: Person Motor Activity: Other (no abnormalities noted) Speech: Speech impediment, Other (rambling at times; very limited most of the time) Language: Other (selectively mute at times, at times loudly and bizarrely growling in an aggressive manner) Fund of Knowledge: Poor Attention and Concentration: Inadequate Memory: Impaired Mood: Other (Patient unable to express her mood) Affect: Blunt Thought Process & Associations: Disorganized (Less today), Other ([place]) Thought Content: Other (difficult to evaluate) Hallucination Type: Other (appears internally stimulated) Delusion Type: Bizarre (None expressed in this examination her reported by nursing staff) Suicidal Ideation: No Suicidal Plan: No Suicidal Intention: No Homicidal Ideation: No Homicidal Plan: No Homicidal Intention: No Insight: Poor Judgment: Poor Assessment and Plan - Assessment (1) Unspecified psychosis Code(s): F29 - Unspecified psychosis not due to a substance or known physiological condition Status: Acute - Plan Plan: Continue current treatment plan Justification for Continued Inpatient Stay: Patient would decompensate in a less restrictive setting Request Healthcare Surrogate/Guardian Advocate?: Yes
[2018-04-06] MEDS: Baclofen 10 MG Tablet PO SCH ×2 (06:13→14:59)
[2018-04-06 06:15] VITALS: BP 156/65; PULSE 60; TEMP 98.9; O2SAT 97
[2018-04-06] MEDS: Heparin - SQ 10,000 UNITS/ML Vial SQ SCH (08:34)
[2018-04-06] MEDS: Megestrol Acetate Liq 400 MG/10 ML UDC PO SCH (08:35)
[2018-04-06] MEDS: Sodium Chloride 0.9% 2 ML Flush BID IV.FLUSH SCH (08:41)
--- NOTE | 2018-04-06 11:03 | P.DSPSY ---
Psychiatry Discharge Summary Inpatient Psychiatric care?: Yes Advance Directives: No Mental Health Advance Directive: No Health Care Proxy: No - Admission Admission Date: February 11, 2018 13:40 Diagnosis specificity: Unspecified psychosis Brief History: Patient is a 62-year-old woman, , domiciled with , unemployed, with a past psychiatric history of schizophrenia as per, multiple psychiatric admissions last time being in March 2016 for similar presentation which patient was admitted. As a transfer from [facility] due to psychosis under Wagner act, which patient was admitted to the inpatient psychiatry unit for further evaluation and management. As per Wagner act: Yelling, coherent, cooperative, no longer able to care for her at home. As per chart patient had required ETO restraints in the ED which she received Geodon 10 mg IM was noted to be disheveled and dirty upon presentation. After transfer to the inpatient psychiatry unit, patient was found to be agitated last evening and received multiple ETO's throughout the night which she received : 16:01 hrs - olanzapine 10mg IM 16:31 hrs - diphenhydramine 25mg IM, lorazepam 1mg IM 17:55 hrs - diphenhydramine 50mg IM 23:59 hrs - chlorpromazine 25mg IM, diphenhydramine 25mg IM 02:43 hrs - olanzapine 10mg IM, lorazepam 2mg IM, diphenhydramine 50mg IM 03:01 hrs - olanzapine 10mg IM, lorazepam 2mg IM, diphenhydramine 25mg IM Patient was found sitting in a geriatric chair had poor ability to maintain coherent interview and responses was very repetitive stating "I do not go", stating "I am not Jelly" but was able to to engaging herself against mention having hypertension as a medical illness progressive interview was unable to be carried out due to her disorganization. She states that she is no one, that does not know her 's home. His , and rest of interviews and incomprehensible S patient continued to just repeat phrases as stated above. Collateral formation obtained by patient's stated that patient had been "excited 1 day and calm another day" but was mostly focused on his distaste with her previous treatment during her last hospitalization here at [facility] in stating that he would not step into the hospital even to provide clothing. He mentions that he had brought her to the hospital because he could no longer care for her as he states he will need to go back into the hospital for his own surgery. He mentions that his doctor in the morning had signed papers for her to be accepted to facility which had not officially accepted her but was aware that patient's would like patient to be placed there. He mentions also that patient would not eat or drink for 2 days but then would "come right out of it" and return to baseline. He mentions that patient has been in Seroquel in the past but that was not helpful and states that when patient had been taking a benzodiazepine it would make her worse. He states that Benadryl had a much better affect on her in the past. He continues to request patient to be discharged to this facility but again was explained to patient's that patient has not been officially accepted and will require improved behavioral control prior to her being accepted at this facility. Discussion of having stated patient started on olanzapine was reviewed with patient along with diphenhydramine as a hypnotic for sleep disturbance and or as needed for anxiety throughout the day. Rest of history unable to obtain at this time. Tobacco Use In Past 30 Days: No How Often Do You Have a Drink Containing Alcohol: Never Hospital Course: April 06, 2018 Patient has had a fairly consistent presentation of nonspecific psychosis with echolalia perseveration and loud screaming episodes. The frequency of these seem to be diminishing of the is reported that yesterday the patient did show achalasia. Today when I examined the patient she was able to respond to questions but continues to have difficulty with vocalizations and screaming when she needs attention. She seems to settle a bit when we discovered exactly what it is that is bothering her, but she does need nursing care to anticipate her needs because of the loss of vocal clarity. Although, the patient denies a history of GERD, there has never been a endoscopic examination to rule out that possibility with regurgitation causing irritation of the vocal cords. Is my recommendation that the patient have a GI workup to include endoscopy and possible laryngoscopy. At this point it would appear that the patient does not have insurance coverage until July for this procedure it is therefore recommended that her primary care physician set in motion referral for both ear nose and throat and GI workups. The current plan because of the patient to be attended to by a visiting nurse service as well as living at home with her . - Discharge Discharge Date: 04/06/18 - Discharge Diagnosis (1) Unspecified psychosis Code(s): F29 - Unspecified psychosis not due to a substance or known physiological condition Status: Acute Discharge Disposition: Home (Will require nursing care visits) - Discharge Instructions Discharge Diet: Soft Diet Activities You Can Perform: Non Weight Bearing Activities to Avoid: Weight Bearing - Discharge Time > 30 minutes Mental Status Examination Appearance: Appropriate Consciousness: Alert Orientation: Person Motor Activity: Other (no abnormalities noted) Speech: Speech impediment, Other (rambling at times; very limited most of the time) Language: Other (selectively mute at times, at times loudly and bizarrely growling in an aggressive manner) Fund of Knowledge: Poor Attention and Concentration: Inadequate Memory: Impaired Mood: Other (Patient unable to express her mood) Affect: Blunt Thought Process & Associations: Disorganized (Less today), Other ([place]) Thought Content: Other (difficult to evaluate) Hallucination Type: Other (appears internally stimulated) Delusion Type: Bizarre (None expressed in this examination her reported by nursing staff) Suicidal Ideation: No Suicidal Plan: No Suicidal Intention: No Homicidal Ideation: No Homicidal Plan: No Homicidal Intention: No Insight: Poor Judgment: Poor Discharge/Advance Care Plan - Results Vital Signs: Last Vital Signs Temp 98.9 F 04/06/18 06:12 Pulse 60 04/06/18 06:12 Resp 19 04/06/18 06:12 BP 156/65 H 04/06/18 06:12 Pulse Ox 97 04/06/18 06:12 Lab Results: Laboratory Results Hemoglobin A1c 5.1 % (4.3-6.0) 02/12/18 07:01 Triglycerides 93 mg/dL (42-150) 02/12/18 07:01 Cholesterol 271 mg/dL (120-200) H 02/12/18 07:01 LDL Cholesterol, Calc 173 mg/dL (0-99) H 02/12/18 07:01 HDL Cholesterol 79.2 mg/dL (40.0-60.0) H 02/12/18 07:01 TSH 3.360 uIU/mL (0.358-3.740) 02/19/18 07:34 Free T4 0.89 ng/dL (0.76-1.46) 02/19/18 07:34 Urine Culture Comments Culture not ind 02/17/18 16:30 Summary of Procedures: None Imaging: ITS Impressions Chest X-Ray 02/12/18 00:00 CONCLUSION: The lungs are clear. Pending Results: None - Medications Number of antipsychotic medications at discharge: 2 - Discharge Care Plan Goals to Promote Your Health: * To prevent worsening of your condition and complications * To maintain your health at the optimal level Directions to Meet Your Goals: Take your medications as prescribed Follow your dietary instruction Follow activity as directed Keep your appointments as scheduled Take your immunizations and boosters as scheduled If your symptoms worsen call your PCP, if no PCP go to Urgent Care Center or Emergency Room For 21/10 questions related to your inpatient stay or results of tests pending at discharge, please contact Dr. Bogdan Figueroa MD at Smoking is Dangerous to Your Health. Avoid second hand smoking
== END 2018-04-06 16:55 | disposition home health service (06) | DRG 885 ==
LOC: NEPE 03:22 → NEDA 13:40 → H250 14:59 → H4EA 02-12 17:47
PROVIDERS: ADMIT Psychiatry & Neurology Child & Adolescent Psychiatry; ATTEND Psychiatry & Neurology Child & Adolescent Psychiatry
CPT/HCPCS: 71010; 71045; 80048; 80053; 80061; 81001; 82550; 82552; 82607; 83036; 84439; 84443; 85025; 85027; 86592; 90772; 90782; 90791; 92610; 93005; 96372; 97110; 97162; 97166; 97530; 99285; C9204; G0195; J1200; J1644; J2060; J2250; J3230; J3486; Q0163